=== PATIENT | male | born 1950 | race Caucasian/White ===

== ENCOUNTER → 2017-04-11 | Outpatient (CLI) | payer BC ==
[~2017-04-11] MED LIST: ASPI325T39 PO; ATOR80TA PO; CARV3.12 PO; CLAR500T34 PO; CLOP1TAB54 PO; ESCI10TA17 PO; LISI-789 PO; LPT40 PO; METF-384 PO; OMEP20CA9 PO; ZNT/150 PO
--- NOTE | 2017-04-11 14:23 | DIAGNOSTIC IMAGING REPORT ---
RIGHT ANKLE 3 VIEWS HISTORY: M25.471 Right ankle [id number] Right COMPARISON: None. FINDINGS: There is no fracture or dislocation. Mild soft tissue swelling. Small plantar heel spur. No radiopaque foreign bodies. IMPRESSION: No fractures. Electronically signed by: Giovani العراقي M.D. 04/11/2017 2:22 PM Dictated Date/Time: 04/11/2017 2:18 PM
== END | disposition home or self-care (01) ==
LOC: C.RAD1850 13:03
PROVIDERS: ATTEND Internal Medicine
DX: M25.471 Effusion, right ankle (principal)

== ENCOUNTER → 2017-04-13 | Outpatient (CLI) | payer BC | END | disposition home or self-care (01) | LOC: C.PATHSPEC 13:21 | PROVIDERS: ATTEND Dermatology | DX: L82.0 Inflamed seborrheic keratosis (principal); L57.0 Actinic keratosis; L81.4 Other melanin hyperpigmentation; L57.8 Other skin changes due to chronic exposure to nonionizing radiation ==

== ENCOUNTER 2017-07-15 22:08 | Inpatient (IN) | payer BC, OTHER ==
[~2017-07-15] VITALS: Ht 172.7 cm; Wt 84.5 kg
[~2017-07-15 22:08] MED LIST changes: +CLAR500T3 PO; -CLAR500T34 PO; -LPT40 PO; -OMEP20CA9 PO
[2017-07-15] MEDS ORDERED: SODIUM CHLORIDE 0.9% 1000ML 1,000 ML IV STA ×2 (22:24→22:56)
--- NOTE | 2017-07-15 22:38 | EMERGENCY ROOM VISIT NOTE ---
History First contact with patient: 22:16 Chief Complaint: SYNCOPE (NEAR SYNCOPE) Stated Complaint: DIZZY,LOW BP,PASSED OUT History of Present Illness The patient is a 67 year old male who presents to the Emergency Room with complaints of dizziness and syncope today. 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 He also mentions increased muscle cramps in his legs, he notes that he takes a statin. Today was the democrat, he states he was working all day and did not eat anything all day and drank very little fluids. Once the democrat started, he did eat a large amount of dinner, drank some water and also had three 14 ounce cans of beer. Around 7 PM he began to feel very dizzy and broke out in a sweat, he did have a syncopal episode where he fell forward from a sitting position and hit his head on the forehead. His son witnessed the fall, states that he was unconscious for approximately 10-20 seconds. He was not confused afterwards and did not have any seizure-like activity with this. The son reports that they attempted to sit him up from the ground and he passed out a second time. The son states he was very pale and clammy during this time. Patient and his family state that they waited for a couple of hours to see if his symptoms would improve, however he continued to feel dizzy and now with a mild headache. He denies any vision changes, neck pain, chest pain, shortness of breath, palpitations, nausea or vomiting, abdominal pain, back pain, diarrhea , dysuria or urinary frequency. Review of Systems A complete 10 point review of systems was reviewed with the patient with pertinent positives and negatives as per history of present illness. All else were negative. Past Medical/Surgical History Medical Problems: (1) AC MYOCARDIAL INFARCT,UNSPEC SITE,SUBSEQ EPISODE (2) ARF (acute renal failure) (3) HYPERLIPIDEMIA NEC/NOS (4) PERCUTANEOUS TRANSLUM CORON ANGIOPLASTY STATUS (5) REFLUX ESOPHAGITIS Family History Cancer Diabetes mellitus Heart disease Lung disease Social History Smoking Status: Never Smoker Alcohol Use: occasionally Marital Status: Housing Status: lives with family Occupation Status: employed Current/Historical Medications Scheduled Aspirin (Aspirin Ec), 162.5 MG PO DAILY Atorvastatin (Atorvastatin Calcium), 40 MG PO DAILY Carvedilol (Coreg), 3.125 MG PO BID Clopidogrel Bisulfate (Plavix), 75 MG PO DAILY Lisinopril (Zestril), 2.5 MG PO DAILY Metformin Hcl (Glucophage), 1,000 MG PO BID Omeprazole (Prilosec), 20 MG PO DAILY Ranitidine Hcl (Zantac), 150 MG PO Q12 Allergies NKDA Physical Exam Vital Signs Date Time Temp Pulse Resp B/P (MAP) Pulse Ox O2 Delivery O2 Flow Rate FiO2 07/15/17 23:27 66 18 92/51 97 Room Air 07/15/17 22:52 91 20 91/53 98 Room Air 82 82/55 72 72/54 07/15/17 22:41 Room Air 07/15/17 22:33 73 07/15/17 22:10 36.6 79 18 108/68 99 Room Air Physical Exam CONSTITUTIONAL: No acute distress. Dehydrated. Non-diaphoretic. Alert and oriented X 4 with normal affect. HEENT: Normocephalic, abrasion to the right forehead. Pupils equal, round and reactive to light, EOM limited, patient reports history of surgeries to his eyes which limits this at baseline, vision generally intact. No hemotympanum. Pharynx normal. Dry mucous membranes. NECK: Supple, full active range of motion without discomfort. No midline tenderness to palpation, no step-offs. RESPIRATORY: Clear to auscultation bilaterally with no wheezing, crackles, rhonchi or stridor. Equal expansion bilaterally. CARDIOVASCULAR: Regular rate and rhythm with no murmurs, rubs or gallops. Normal peripheral perfusion. No edema. CHEST WALL: No tenderness of the chest wall, no ecchymosis or abrasions, no crepitus. GASTROINTESTINAL: Soft, nontender, nondistended. Bowel sounds present in all quadrants. MUSCULOSKELETAL: Full range of motion of all joints without discomfort. INTEGUMENTARY: No rash or other significant dermatologic conditions noted. NEUROLOGIC: Cranial nerves II-XII grossly intact. No focal neurologic deficits noted. Negative pronator drift, negative facial droop. Normal strength, normal sensation, normal speech, normal coordination including negative Romberg and negative lvnyfd-[id number]-smndke testing, normal gait. Medical Decision & Procedures Laboratory Results 07/15/17 22:39 Red Blood Count 4.46, Mean Corpuscular Volume 91.9, Mean Corpuscular Hemoglobin 31.2, Mean Corpuscular Hemoglobin Concent 33.9, Mean Platelet Volume 10.2, Neutrophils (%) (Auto) 74.0, Lymphocytes (%) (Auto) 16.1, Monocytes (%) (Auto) 8.5, Eosinophils (%) (Auto) 0.7, Basophils (%) (Auto) 0.3, Neutrophils # (Auto) 11.76, Lymphocytes # (Auto) 2.55, Monocytes # (Auto) 1.35, Eosinophils # (Auto) 0.11, Basophils # (Auto) 0.04 07/15/17 22:39 Test 07/15/17 22:39 07/15/17 22:45 07/15/17 22:50 White Blood Count 15.87 K/uL (4.8-10.8) Red Blood Count 4.46 M/uL (4.7-6.1) Hemoglobin 13.9 g/dL (14.0-18.0) Hematocrit 41.0 % (42-52) Mean Corpuscular Volume 91.9 fL (80-100) Mean Corpuscular Hemoglobin 31.2 pg (25-34) Mean Corpuscular Hemoglobin Concent 33.9 g/dl (32-36) Platelet Count 266 K/uL (130-400) Mean Platelet Volume 10.2 fL (7.4-10.4) Neutrophils (%) (Auto) 74.0 % Lymphocytes (%) (Auto) 16.1 % Monocytes (%) (Auto) 8.5 % Eosinophils (%) (Auto) 0.7 % Basophils (%) (Auto) 0.3 % Neutrophils # (Auto) 11.76 K/uL (1.4-6.5) Lymphocytes # (Auto) 2.55 K/uL (1.2-3.4) Monocytes # (Auto) 1.35 K/uL (0.11-0.59) Eosinophils # (Auto) 0.11 K/uL (0-0.5) Basophils # (Auto) 0.04 K/uL (0-0.2) RDW Standard Deviation 44.1 fL (36.4-46.3) RDW Coefficient of Variation 13.2 % (11.5-14.5) Immature Granulocyte % (Auto) 0.4 % Immature Granulocyte # (Auto) 0.06 K/uL (0.00-0.02) Prothrombin Time 11.4 SECONDS (9.0-12.0) Prothromb Time International Ratio 1.1 (0.9-1.1) Activated Partial Thromboplast Time 25.7 SECONDS (21.0-31.0) Partial Thromboplastin Ratio 1.0 Anion Gap 11.0 mmol/L (3-11) Est Creatinine Clear Calc Drug Dose 31.6 ml/min Estimated GFR () 30.1 Estimated GFR (Non- 26.0 BUN/Creatinine Ratio 13.0 (10-20) Calcium Level 9.3 mg/dl (8.5-10.1) Total Bilirubin 0.7 mg/dl (0.2-1) Direct Bilirubin 0.2 mg/dl (0-0.2) Aspartate Amino Transf (AST/SGOT) 47 U/L (15-37) Alanine Aminotransferase (ALT/SGPT) 35 U/L (12-78) Alkaline Phosphatase 74 U/L (45-117) Total Creatine Kinase 1425 U/L (39-308) Troponin I < 0.015 ng/ml (0-0.045) Total Protein 7.8 gm/dl (6.4-8.2) Albumin 4.5 gm/dl (3.4-5.0) Thyroid Stimulating Hormone (TSH) 1.790 uIu/ml (0.300-4.500) Ethyl Alcohol mg/dL < 3.0 mg/dl (0-3) Bedside Glucose 120 mg/dl (70-99) Urine Color DK YELLOW Urine Appearance CLOUDY (CLEAR) Urine pH 5.0 (4.5-7.5) Urine Specific [place] 1.029 (1.000-1.030) Urine Protein 2+ (NEG) Urine Glucose (UA) NEG (NEG) Urine Ketones TRACE (NEG) Urine Occult Blood NEG (NEG) Urine Nitrite NEG (NEG) Urine Bilirubin 1+ (NEG) Urine Urobilinogen NEG (NEG) Urine Leukocyte Esterase SMALL (NEG) Urine WBC (Auto) 5-10 /hpf (0-5) Urine Epithelial Cells (Auto) 20-30 /lpf (0-5) Urine Crystals CALCIUM OXALATE (NONE Urine Pathogenic Casts /lpf (0) Medications Administered Medications (Trade) Dose Ordered Sig/Vera Route Start Time Stop Time Status Last Admin Dose Admin Sodium Chloride 1,000 ml @ 999 mls/hr Q1H1M STAT IV 07/15/17 22:24 07/15/17 23:24 DC 07/15/17 22:52 999 MLS/HR Sodium Chloride 1,000 ml @ 999 mls/hr Q1H1M STAT IV 07/15/17 22:56 07/15/17 23:56 DC 07/15/17 23:31 999 MLS/HR ECG Indication: syncope Rate (beats per minute): 71 Rhythm: normal sinus Findings: T-wave inversion (Inferior), no acute ischemic change, no ectopy Change: no significant change (05/05/2015, T-wave inversion in the inferior leads is not new) Medical Decision CC: Patient presenting with complaint of syncope, dizziness come head injury Interpretation of Labs: Leukocytosis, mild anemia, mild hyponatremia, acute kidney injury with elevated creatinine and BUN, CK is elevated, liver enzymes WNL, troponin is normal, TSH is normal, EtOH level negative, coagulation factors WNL. UA shows high SG, proteinuria, ketonuria, no hematuria, no infection. Differential Diagnosis: Includes, but not limited to syncope, orthostasis, vasovagal, dysrhythmia, acute MS, PE, traumatic brain injury including concussion, intracranial hemorrhage, contusion, abrasion, dehydration, electrolyte abnormality, HILDA, rhabdomyolysis, statin-induced myositis, among others. Medication Reconciliation: I attest that I have personally reviewed the patient' s current medication list. Vital signs review: I reviewed the patient's vital signs and interpret them as follows: T: Afebrile; BP: Hypotensive; HR: Within normal limits; RR: Within normal limits; Pulse Ox: Within normal limits on room air. Summary: Patient was evaluated at bedside, history of physical exam performed. Patient is alert and oriented 4, in no acute distress. He complains of feeling dizzy. Neurologic exam is within normal limits with no focal deficits. There is an abrasion/contusion to the right forehead that is slightly tender to palpation. Patient is on aspirin and Plavix, will perform head CT to evaluate for traumatic intracranial hemorrhage. EKG reviewed at bedside, normal sinus rhythm with no acute ischemic changes appreciated. Orders were placed at bedside for labs including troponin, CK, UA, IV fluids for hydration, chest x-ray. Positive orthostatic hypotension, 2L IV fluids ordered. Patient discussed with Dr. Rosas, who agrees with my assessment and plan. Forehead abrasion examined, superficial, no foreign material. Cleansed with chlorhexidine scrub and irrigated with normal saline. Dressing with bacitracin applied. Labs reviewed as above, concerning for HILDA with elevated creatinine, in setting of elevated CK, as well as leukocytosis of unknown etiology. Chest x-ray pending. CT of the head and C-spine reviewed with Dr. Rosas, no apparent acute abnormalities. Radiologist reads pending. I discussed the patient with Dr. Brayd, Hospitalist, who agrees to admit the patient. Patient reassessed multiple times throughout ED stay, neuro exam remains intact and unchanged. IV fluids infusing. Patient reports headache and dizziness are improving. I updated the patient and family on all results and plan for admission. They verbalized understanding. Head Trauma GCS Score: 15 Medication Reconcilliation Current Medication List: was personally reviewed by me Blood Pressure Screening Patient's blood pressure: Low blood pressure Impression Primary Impression: Syncope and collapse Additional Impressions: HILDA (acute kidney injury) Dehydration Elevated creatine kinase level Departure Information Dispostion Admitted as an inpatient Condition FAIR Referrals RV. Skinner MD (PCP) Patient Instructions My [facility] Problem Qualifiers
[2017-07-15] MEDS ORDERED: OMEP20CA9 PO (22:43)
[2017-07-15] MEDS ORDERED: LPT40 PO (22:43)
[2017-07-15 22:55] LABS: BASO % 0.3 %; BASO ABS # 0.04 K/uL (0-0.2); COMPLETE YES; EOS % 0.7 %; IG% 0.4 %; LYMPH % 16.1 %; LYMPH ABS # 2.55 K/uL (1.2-3.4); MEAN CELL VOLUME 91.9 fL (80-100); MEAN CORPUSCULAR HEMOGLOBIN 31.2 pg (25-34); MEAN CORPUSCULAR HGB CONC 33.9 g/dl (32-36); MEAN PLATELET VOLUME 10.2 fL (7.4-10.4); MONO % 8.5 %; PLATELET COUNT 266 K/uL (130-400); RED BLOOD COUNT 4.46 M/uL (4.7-6.1); WHITE BLOOD COUNT 15.87 K/uL (4.8-10.8)
[2017-07-15 23:06] LABS: URINE APPEARANCE CLOUDY (CLEAR); URINE COLOR DK YELLOW; URINE EPITHELIAL CELL AUTO 20-30 /lpf (0-5); URINE NITRITE NEG (NEG); URINE SPECIFIC GRAVITY 1.029 (1.000-1.030); UROBILINOGEN NEG (NEG)
[2017-07-15 23:06] LABS: INR 1.1 (0.9-1.1); PROTHROMBIN TIME (PATIENT) 11.4 SECONDS (9.0-12.0)
[2017-07-15 23:17] LABS: ALT/SGPT 35 U/L (12-78); BLOOD UREA NITROGEN 33 mg/dl (7-18); CALCIUM 9.3 mg/dl (8.5-10.1); CARBON DIOXIDE 22 mmol/L (21-32); CHLORIDE 99 mmol/L (98-107); GLUCOSE 101 mg/dl (70-99); POTASSIUM 4.6 mmol/L (3.5-5.1); SODIUM 132 mmol/L (136-145)
[2017-07-15 23:27] LABS: URINE BILIRUBIN 1+ (NEG)
[2017-07-15 23:28] LABS: MANUAL MICROSCOPIC REQUIRED? NO; REVIEW REQ? YES
[2017-07-15 23:31] LABS: ALKALINE PHOSPHATASE 74 U/L (45-117); AST/SGOT 47 U/L (15-37)
[2017-07-16] MEDS ORDERED: ONDANSETRON INJ 2 MG/ML 2 ML VIAL IV PRN (00:15)
[2017-07-16] MEDS ORDERED: POLYETHYLENE (MIRALAX) 17 GM PACK PO PRN (00:15)
[2017-07-16] MEDS ORDERED: ALUMINUM/MAGNESIUM/SIMETH (MAALOX MAX) 30 ML UDC PO PRN (00:15)
[2017-07-16] MEDS ORDERED: MAGNESIUM HYDROXIDE SUSP 30 ML UDC PO PRN (00:15)
[2017-07-16] MEDS ORDERED: ZOLPIDEM TARTRATE 5 MG TAB PO PRN (00:15)
[2017-07-16] MEDS ORDERED: ACETAMINOPHEN 325 MG TAB PO PRN (00:15)
[2017-07-16] MEDS: SODIUM CHLORIDE 0.9% 1000ML 1,000 ML IV SCH ×4 (01:17→21:02)
--- NOTE | 2017-07-16 01:52 | History and Physical ---
History & Physical Date & Time of Service: Jul 16, 2017 at 01:21 Chief Complaint: Dizzy,Low Bp,Passed Out Primary Care Physician: RV. Skinner MD History of Present Illness Source: patient 67 y/o M Hx CAD, HTN, HPL, DM, ocular muscle paralysis. Pt presents following 2 syncopal episodes. He was attending a birthday green party which he had arranged for his and after 2 beers he became light headed and fell forward sustaining minor trauma to the front of his head. He regained consciousness relatively quickly and was assisted to a standing position by his son when he again lost consciousness, this time being supported before he hit the floor. He was subsequently brought to hospital for evaluation. He denies CP, palpitations, SOB prior to syncope. He denies N/V/D, dysuria or recent fevers. Initial labs are notable for ARF and mild rhabdo. The pt states that he may not have had enough fluids throughout the day. 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 - does not smoke - drinks socially Smoking Status: Never Smoker Marital Status: Occupational Status: employed Immunizations History of Influenza Vaccine: Unknown History of Tetanus Vaccine?: Unknown History of Pneumococcal: Unknown History of Hepatitis B Vaccine: Unknown Multi-Drug Resistant Organisms History of MDRO: No Allergies Coded Allergies: No Known Allergies (Unverified , 07/15/17) Home Medications Scheduled Aspirin (Aspirin Ec), 162.5 MG PO DAILY Atorvastatin (Atorvastatin Calcium), 40 MG PO DAILY Carvedilol (Coreg), 3.125 MG PO BID Clopidogrel Bisulfate (Plavix), 75 MG PO DAILY Lisinopril (Zestril), 2.5 MG PO DAILY Metformin Hcl (Glucophage), 1,000 MG PO BID Omeprazole (Prilosec), 20 MG PO DAILY Ranitidine Hcl (Zantac), 150 MG PO Q12 Review of Systems Constitutional: No fever, No chills Eyes: + problem reported (Chronic impairment as above), No worsening of vision ENT: No hearing loss, No nasal symptoms Respiratory: No cough, No wheezing Cardiovascular: No chest pain Abdomen: No pain, No nausea, No vomiting Musculoskeletal: No joint pain Genitourinary - Male: No hematuria, No dysuria Neurologic: No memory loss, No paralysis, No weakness Psychiatric: No depression symptoms Endocrine: No fatigue Hematologic / Lymphatic: No abnormal bleeding/bruising Integumentary: No rash Allergic / Immunologic: No environmental allergies Physical Exam Vital Signs Date Time Temp Pulse Resp B/P (MAP) Pulse Ox O2 Delivery O2 Flow Rate FiO2 07/16/17 01:01 75 18 115/61 92 Room Air 07/15/17 23:27 66 18 92/51 97 Room Air 07/15/17 22:52 91 20 91/53 98 Room Air 82 82/55 72 72/54 07/15/17 22:41 Room Air 07/15/17 22:33 73 07/15/17 22:10 36.6 79 18 108/68 99 Room Air General Appearance: WD/WN, no apparent distress Head: normocephalic Eyes: + pertinent finding (Occular muscle paralysis - L ptosis) ENT: normal ENT inspection, pharynx normal Neck: supple, no JVD Respiratory/Chest: chest non-tender, lungs clear, normal breath sounds Cardiovascular: regular rate, rhythm, no edema, no gallop, no JVD, no murmur, normal peripheral pulses Abdomen/GI: normal bowel sounds, non tender, soft Back: normal inspection, no CVA tenderness Extremities/Musculoskelatal: normal inspection, no calf tenderness, normal capillary refill, no pedal edema, normal range of motion 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, no motor/sensory deficits, alert, oriented x 3 Skin: normal color, warm/dry, no rash Diagnostics Laboratory Results Results Past 24 Hours Test 07/15/17 22:39 07/15/17 22:45 07/15/17 22:50 Range/Units White Blood Count 15.87 4.8-10.8 K/uL Red Blood Count 4.46 4.7-6.1 M/uL Hemoglobin 13.9 14.0-18.0 g/dL Hematocrit 41.0 42-52 % Mean Corpuscular Volume 91.9 80-100 fL Mean Corpuscular Hemoglobin 31.2 25-34 pg Mean Corpuscular Hemoglobin Concent 33.9 32-36 g/dl Platelet Count 266 130-400 K/uL Mean Platelet Volume 10.2 7.4-10.4 fL Neutrophils (%) (Auto) 74.0 % Lymphocytes (%) (Auto) 16.1 % Monocytes (%) (Auto) 8.5 % Eosinophils (%) (Auto) 0.7 % Basophils (%) (Auto) 0.3 % Neutrophils # (Auto) 11.76 1.4-6.5 K/uL Lymphocytes # (Auto) 2.55 1.2-3.4 K/uL Monocytes # (Auto) 1.35 0.11-0.59 K/uL Eosinophils # (Auto) 0.11 0-0.5 K/uL Basophils # (Auto) 0.04 0-0.2 K/uL RDW Standard Deviation 44.1 36.4-46.3 fL RDW Coefficient of Variation 13.2 11.5-14.5 % Immature Granulocyte % (Auto) 0.4 % Immature Granulocyte # (Auto) 0.06 0.00-0.02 K/uL Prothrombin Time 11.4 9.0-12.0 SECONDS Prothromb Time International Ratio 1.1 0.9-1.1 Activated Partial Thromboplast Time 25.7 21.0-31.0 SECONDS Partial Thromboplastin Ratio 1.0 Sodium Level 132 136-145 mmol/L Potassium Level 4.6 3.5-5.1 mmol/L Chloride Level 99 98-107 mmol/L Carbon Dioxide Level 22 21-32 mmol/L Anion Gap 11.0 3-11 mmol/L Blood Urea Nitrogen 33 7-18 mg/dl Creatinine 2.50 0.60-1.40 mg/dl Est Creatinine Clear Calc Drug Dose 31.6 ml/min Estimated GFR () 30.1 Estimated GFR (Non- 26.0 BUN/Creatinine Ratio 13.0 10-20 Random Glucose 101 70-99 mg/dl Calcium Level 9.3 8.5-10.1 mg/dl Total Bilirubin 0.7 0.2-1 mg/dl Direct Bilirubin 0.2 0-0.2 mg/dl Aspartate Amino Transf (AST/SGOT) 47 15-37 U/L Alanine Aminotransferase (ALT/SGPT) 35 12-78 U/L Alkaline Phosphatase 74 45-117 U/L Total Creatine Kinase 1425 39-308 U/L Troponin I < 0.015 0-0.045 ng/ml Total Protein 7.8 6.4-8.2 gm/dl Albumin 4.5 3.4-5.0 gm/dl Thyroid Stimulating Hormone (TSH) 1.790 0.300-4.500 uIu/ml Ethyl Alcohol mg/dL < 3.0 0-3 mg/dl Bedside Glucose 120 70-99 mg/dl Urine Color DK YELLOW Urine Appearance CLOUDY CLEAR Urine pH 5.0 4.5-7.5 Urine Specific [place] 1.029 1.000-1.030 Urine Protein 2+ NEG Urine Glucose (UA) NEG NEG Urine Ketones TRACE NEG Urine Occult Blood NEG NEG Urine Nitrite NEG NEG Urine Bilirubin 1+ NEG Urine Urobilinogen NEG NEG Urine Leukocyte Esterase SMALL NEG Urine WBC (Auto) 5-10 0-5 /hpf Urine RBC (Auto) 0-4 0-4 /hpf Urine Hyaline Casts (Auto) >30 0-5 /lpf Urine Epithelial Cells (Auto) 20-30 0-5 /lpf Urine Bacteria (Auto) 1+ NEG Urine Crystals CALCIUM OXALATE NONE PRSENT Urine Pathogenic Casts 0 /lpf EKG Sinus - inf T wave inversions Impression Assessment and Plan 67 y/o M Hx CAD, HTN, HPL, DM, ocular muscle paralysis. Pt presents following 2 syncopal episodes. He was attending a birthday green party which he had arranged for his and after 2 beers he became light headed and fell forward sustaining minor trauma to the front of his head. He regained consciousness relatively quickly and was assisted to a standing position by his son when he again lost consciousness, this time being supported before he hit the floor. He was subsequently brought to hospital for evaluation. He denies CP, palpitations, SOB prior to syncope. He denies N/V/D, dysuria or recent fevers. Initial labs are notable for ARF and mild rhabdo. The pt states that he may not have had enough fluids throughout the day. 1) Syncope - possibly due to orthostasis considering rhabdo and ARF. Will monitor on telemetry for arrhythmias. IVF - orthostatics with BP - hold BP meds - syncope workup is likely to be low yield and would defer echo / carotid US to outpt setting unless there is recurrence after fluid resuscitation. 2) ARF - IVF - recheck AM - hold DAPHNE , ASA , Plavix 3) Rhabdo - mild - trend CK - aggressive fluid resuscitation 4) CAD - will trend troponin - restart Statin, ASA, Plavix AM if labs improved - T wave inversions are present - unclear if this is chronic - will repeat EKG AM 5) HTN - BP meds held due to likely orthostasis and ARF - can restart following AM reassessment if appropriate. 6) DM - placed on SS Full code - SCDs due to head trauma from fall Total time for this admit including review of labs, meds, imaging - discussion with pt and ER attending Level of Care Telemetry Resuscitation Status FULL RESUSCITATION VTE Prophylaxis VTE Risk Assessment Done? Y/N: Yes Risk Level: Low Given or contraindicated: SCD's
[2017-07-16 02:14] VITALS: BP 104/62; PULSE 67; TEMP 36.6; O2SAT 98; Ht 172.7 cm; Wt 84.5 kg
[2017-07-16] MEDS ORDERED: GLUCAGON FOR INJ 1 MG VIAL SQ PRN (02:30)
[2017-07-16] MEDS ORDERED: GLUCOSE 40% GEL 15 GM TUBE PO PRN (02:30)
[2017-07-16] MEDS ORDERED: GLUCOSE 10 TABS/TUBE PO PRN (02:30)
[2017-07-16] MEDS ORDERED: DEXTROSE 50% 50 ML SYR IV PRN (02:30)
[2017-07-16 04:00] VITALS: BP 90/56; PULSE 73; TEMP 36.9; O2SAT 97
--- NOTE | 2017-07-16 05:42 | DIAGNOSTIC IMAGING REPORT ---
CERVICAL SPINE W/O CLINICAL HISTORY: 67 years-old Male presenting with passed out, dizzy, fell forward, hit head, eval trauma. TECHNIQUE: Multidetector CT of the cervical spine was performed without the use of intravenous contrast. IV contrast: None. A dose lowering technique was used consistent with the principles of ALARA (as low as reasonably achievable). COMPARISON: None. CT DOSE (mGy.cm): The estimated cumulative dose is 1045.14 mGy.cm. FINDINGS: Photographic Editor topogram: Unremarkable. Slight straightening of normal cervical lordosis. Vertebral body heights and alignment maintained. Intervertebral disc height loss at C5-6, where there is the greatest degree of degenerative change. Osseous neural foraminal narrowing also noted at C5-6. Disc osteophyte complex noted at this level as well as the C4-5 level. No osseous spinal canal narrowing. Degenerative changes also noted at the atlantoaxial articulation. No acute fracture or subluxation. Regional soft tissues within normal limits. Lung apices clear. Limited intracranial evaluation normal. IMPRESSION: No acute osseous injury of the cervical spine. Degenerative changes most severe at C5-6. Electronically signed by: Lakhwinder Carter M.D. 07/16/2017 5:40 AM Dictated Date/Time: 07/16/2017 5:35 AM
--- NOTE | 2017-07-16 05:44 | DIAGNOSTIC IMAGING REPORT ---
HEAD WITHOUT CONTRAST (CT) CLINICAL HISTORY: 67 years-old Male presenting with , syncope, hit head, on aspirin and Plavix, eval trauma, CVA. TECHNIQUE: Multidetector CT imaging of the head was performed without the use of intravenous contrast. IV contrast: None. A dose lowering technique was used consistent with the principles of ALARA (as low as reasonably achievable). COMPARISON: 05/03/2013. CT DOSE (mGy.cm): The estimated cumulative dose is 1045.14 inclusive of the cervical spine.. FINDINGS: Fare Register Repairer topogram: Unremarkable. Ventricles and sulci normal in size. Periventricular and subcortical white matter hypoattenuation, nonspecific but likely indicative of chronic small vessel ischemic change. No mass effect or midline shift. No hemorrhage or acute territorial infarct. No extra-axial fluid collection. Paranasal sinuses and mastoid air cells clear. Calvarium intact. IMPRESSION: 1. No acute intracranial pathology. Electronically signed by: Lakhwinder Carter M.D. 07/16/2017 5:43 AM Dictated Date/Time: 07/16/2017 5:41 AM
--- NOTE | 2017-07-16 05:58 | DIAGNOSTIC IMAGING REPORT ---
CHEST ONE VIEW PORTABLE CLINICAL HISTORY: 67 years-old Male presenting with syncope, leukocytosis. TECHNIQUE: Portable upright AP view of the chest was obtained. COMPARISON: 09/30/2015. FINDINGS: Mild tortuosity of the descending thoracic aorta. Cardiac silhouette normal in size. Lungs and pleural spaces clear. Degenerative changes of the left glenohumeral joint. Upper abdomen normal. IMPRESSION: 1. No acute cardiopulmonary disease. Electronically signed by: Lakhwinder Carter M.D. 07/16/2017 5:56 AM Dictated Date/Time: 07/16/2017 5:56 AM
[2017-07-16 06:32] LABS: HEMATOCRIT 37.5 % (42-52); MEAN CELL VOLUME 90.1 fL (80-100); MEAN CORPUSCULAR HEMOGLOBIN 30.3 pg (25-34); MEAN CORPUSCULAR HGB CONC 33.6 g/dl (32-36); PLATELET COUNT 198 K/uL (130-400); RED BLOOD COUNT 4.16 M/uL (4.7-6.1); WHITE BLOOD COUNT 9.42 K/uL (4.8-10.8)
--- NOTE | 2017-07-16 06:42 | EMERGENCY ROOM VISIT NOTE ---
ED Visit Note First contact with patient: 23:13 I have personally evaluated and examined this patient. I agree with assessment and plan of Poornima Holly PA-C. 67 yr old with syncope who is orthostatic, in acute renal failure and clearly dehydrated.
[2017-07-16 07:20] LABS: BLOOD UREA NITROGEN 30 mg/dl (7-18); BUN/CREATININE RATIO 20.1 (10-20); CARBON DIOXIDE 21 mmol/L (21-32); CHLORIDE 107 mmol/L (98-107); GLUCOSE 97 mg/dl (70-99); MAGNESIUM 1.5 mg/dl (1.8-2.4); POTASSIUM 4.1 mmol/L (3.5-5.1); SODIUM 137 mmol/L (136-145)
[2017-07-16 08:00] VITALS: BP 109/73; PULSE 75; TEMP 36.2; O2SAT 98
[2017-07-16] MEDS: INSULIN ASPART 100 UNITS/ML 3 ML PEN SC SCH ×4 (08:09→20:39)
[2017-07-16] MEDS: CARVEDILOL 3.125 MG TAB PO SCH ×2 (08:15→20:38)
[2017-07-16] MEDS: RANITIDINE HCL 150 MG TAB PO SCH (08:15)
[2017-07-16] MEDS: MAGNESIUM SULFATE 1GM / D5W 1 GM in PREMIXED IN D5W 100 ML IV SCH ×2 (10:47→11:55)
[2017-07-16 12:00] VITALS: BP 105/70; PULSE 75; TEMP 37; O2SAT 98
[2017-07-16 19:31] LABS: URINE APPEARANCE CLEAR (CLEAR); URINE BILIRUBIN NEG (NEG); URINE COLOR YELLOW; URINE NITRITE NEG (NEG); URINE SPECIFIC GRAVITY 1.014 (1.000-1.030); UROBILINOGEN NEG (NEG)
[2017-07-16 19:32] LABS: MANUAL MICROSCOPIC REQUIRED? NO; REVIEW REQ? NO
[2017-07-16 19:48] VITALS: BP 111/75; PULSE 73; TEMP 36.9; O2SAT 98
--- NOTE | 2017-07-16 20:36 | Progress Note ---
Progress Note Date of Service Jul 16, 2017. 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 acute kidney injury - resolving. Possibly from rhabdo, possibly from dehydration, possibly from DAPHNE, etc Cont IVF. Hold DAPHNE. BMP am. 2. rhabdomyolysis - due to syncope with fall. Hydrate; CPK am. Hold statin. 3. hyponatremia - resolved. 4. abnormal u/a - no UTI symptoms. But, recheck u/a and urine cx to ensure no UTI. 5. T2DM - controlled; hold metformin. 6. syncope - due to volume depletion/orthostasis - resolved. Cont hydration. hold BP meds. PT consult in am to ensure safe for d/c home. Bandar Farr MD
[2017-07-17] VITALS (7 sets, daily range): BP systolic 105–116; BP diastolic 65–73; PULSE 58–68; TEMP 36.6–37.2; O2SAT 97–98
[2017-07-17] MEDS: SODIUM CHLORIDE 0.9% 1000ML 1,000 ML IV SCH (06:06)
[2017-07-17] MEDS: INSULIN ASPART 100 UNITS/ML 3 ML PEN SC SCH ×2 (06:30→11:00)
[2017-07-17 06:55] LABS: CREATININE 0.88 mg/dl (0.60-1.40); MAGNESIUM 1.9 mg/dl (1.8-2.4); POTASSIUM 4.8 mmol/L (3.5-5.1)
[2017-07-17] MEDS: RANITIDINE HCL 150 MG TAB PO SCH (09:05)
[2017-07-17] MEDS: CARVEDILOL 3.125 MG TAB PO SCH (09:05)
--- NOTE | 2017-07-17 11:15 | Discharge Instructions ---
Discharge Instructions Date of Service Jul 17, 2017. Admission Reason for Admission: Arf, Syncope And Collapse Discharge Discharge Diagnosis / Problem: fainting spell and transient renal failure appearing due to dehydration Discharge Goals Goal(s): Improve function, Diagnostic testing, Therapeutic intervention Activity Recommendations Activity Limitations: resume your previous activity . Instructions / Follow-Up Instructions / Follow-Up faint -the whole situation appears that you got dehydrated, which then led to the faint (probably from a brief drop in blood pressure from the dehydration combined with being on your regular medications) -your kidney numbers were elevated when you were admitted (creatinine was 2.5) but this has improved entirely (back to a totally normal 0.88 today) - this fits totally with being dry -it may take a few days for you to totally feel like yourself again, but given your improvement, as long as you stay hydrated and take it easy, it's going to be safer to have you rest and recover at home than in the hospital at this point -because the situation appears to have centered around being dehydrated, we have not changed your regular medications at this time; but will have labwork ( BMP) checked for Dr Handy for before your follow up appointment -make sure to stay well hydrated - drink at least 60 ounces of non-caffeine, non -alcohol fluids each day Current Hospital Diet Patient's current hospital diet: AHA Diet (Heart Healthy), Diabetes Type 2 Diet Discharge Diet Recommended Diet: AHA Diet (Heart Healthy), Diabetes Type 2 Diet Pending Studies Studies pending at discharge: no Medical Emergencies . Who to Call and When: Medical Emergencies: If at any time you feel your situation is an emergency, please call 911 immediately. . Non-Emergent Contact Non-Emergency issues call your: Primary Care Provider (we're working on a follow up for the end of this week, have the labwork checked before-hand) . . "Provider Documentation" section prepared by Александр Oglesby. . VTE Core Measure Inpt VTE Proph given/why not?: SCD's
--- NOTE | 2017-07-17 14:14 | Progress Note ---
Subjective Date of Service: Jul 17, 2017. Subjective Pt evaluation today including: conversation w/ patient, physical exam, chart review, lab review, review of inpatient medication list feeling better than at admit, but still a little lightheaded at times. notes that he has been able to get up and go to bathroom, etc without difficulty though. 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 walked >300ft in halls with pt. he was completely independent and conversational the whole time, steady on his feet, navigating with his IV pole, etc. no dizziness or unsteadiness Problem List Medical Problems: (1) HILDA (acute kidney injury) Status: Acute (2) Dehydration Status: Acute (3) Elevated creatine kinase level Status: Acute (4) Syncope and collapse Status: Acute Review of Systems all other ROS otherwise negative except for as above Objective Vital Signs Date Time Temp Pulse Resp B/P (MAP) Pulse Ox O2 Delivery O2 Flow Rate FiO2 07/17/17 11:38 37.2 61 18 98 Room Air 07/17/17 11:35 37.2 61 18 116/73 (87) 98 Room Air 07/17/17 09:00 68 110/70 (83) 07/17/17 08:00 98 Room Air 07/17/17 07:27 36.6 58 18 106/65 (79) 98 Room Air 07/17/17 04:00 36.8 65 18 114/71 (85) 98 Room Air 07/17/17 04:00 Room Air 07/17/17 00:01 Room Air 07/17/17 00:01 36.9 61 18 105/67 (80) 97 Room Air 07/16/17 20:00 Room Air 07/16/17 19:48 36.9 73 20 111/75 (87) 98 Room Air 07/16/17 16:00 Room Air Physical Exam General Appearance: no apparent distress Eyes: EOMI ENT: hearing grossly normal Neck: trachea midline Respiratory/Chest: no respiratory distress, no accessory muscle use Extremities: normal range of motion Neurologic/Psychiatric: production supv II-XII nml as tested, alert, normal mood/affect, + pertinent finding (see above in regards to gait and steadiness) Skin: normal color, warm/dry Laboratory Results Last 24 Hours Test 07/16/17 16:36 07/16/17 19:05 07/16/17 20:23 07/17/17 06:00 Bedside Glucose 86 mg/dl 107 mg/dl Urine Color YELLOW Urine Appearance CLEAR Urine pH 5.0 Urine Specific [place] 1.014 Urine Protein NEG Urine Glucose (UA) NEG Urine Ketones NEG Urine Occult Blood NEG Urine Nitrite NEG Urine Bilirubin NEG Urine Urobilinogen NEG Urine Leukocyte Esterase NEG Sodium Level 140 mmol/L Potassium Level 4.8 mmol/L Chloride Level 108 mmol/L Carbon Dioxide Level 24 mmol/L Anion Gap 8.0 mmol/L Blood Urea Nitrogen 14 mg/dl Creatinine 0.88 mg/dl Est Creatinine Clear Calc Drug Dose 89.9 ml/min Estimated GFR () 104.5 Estimated GFR (Non- 90.1 BUN/Creatinine Ratio 16.0 Random Glucose 117 mg/dl Calcium Level 9.0 mg/dl Magnesium Level 1.9 mg/dl Total Creatine Kinase 1063 U/L Test 07/17/17 07:42 07/17/17 11:20 Bedside Glucose 111 mg/dl 96 mg/dl Assessment and Plan syncope -predominantly due to dehydration. -stable for home. discussed rest/recovery/hydration acute kidney injury - resolved, due to dehydration. improved. PCP later this week, BMP then. rhabdo appears too mild to have played a role, ACEi possibly was a small contributor, but dehydration appearing to be main cause rhabdomyolysis - due to syncope with fall, working in the heat, dehydration. improved. appeared with hindsight to have been a mild part of his acute illness hyponatremia - resolved. abnormal u/a - no infectious s/s. culture 1,000 col/ml. likely abnormal due to dehydration T2DM - controlled; safe to resume metformin at d/c safe/stable for home PCP later this week BMP at PCP f/u with recovery, no changes to home meds at this time
--- NOTE | 2017-07-17 14:19 | Discharge Summary ---
Discharge Summary Date of Service Jul 17, 2017. Discharge Summary Admission Date: Jul 16, 2017 at 00:15 Discharge Date: Jul 17, 2017 Discharge Disposition: Home Principal Diagnosis: dehydration (syncope, ARF) Immunizations: Have You Had Influenza Vaccine: Unknown History of Tetanus Vaccine?: Unknown History of Pneumococcal: Unknown History of Hepatitis B Vaccine: Unknown Procedures: HEAD WITHOUT CONTRAST (CT) CLINICAL HISTORY: 67 years-old Male presenting with , syncope, hit head, on aspirin and Plavix, eval trauma, CVA. TECHNIQUE: Multidetector CT imaging of the head was performed without the use of intravenous contrast. IV contrast: None. A dose lowering technique was used consistent with the principles of ALARA (as low as reasonably achievable). COMPARISON: 05/03/2013. CT DOSE (mGy.cm): The estimated cumulative dose is 1045.14 inclusive of the cervical spine.. FINDINGS: [employer] topogram: Unremarkable. Ventricles and sulci normal in size. Periventricular and subcortical white matter hypoattenuation, nonspecific but likely indicative of chronic small vessel ischemic change. No mass effect or midline shift. No hemorrhage or acute territorial infarct. No extra-axial fluid collection. Paranasal sinuses and mastoid air cells clear. Calvarium intact. IMPRESSION: 1. No acute intracranial pathology. CERVICAL SPINE W/O CLINICAL HISTORY: 67 years-old Male presenting with passed out, dizzy, fell forward, hit head, eval trauma. TECHNIQUE: Multidetector CT of the cervical spine was performed without the use of intravenous contrast. IV contrast: None. A dose lowering technique was used consistent with the principles of ALARA (as low as reasonably achievable). COMPARISON: None. CT DOSE (mGy.cm): The estimated cumulative dose is 1045.14 mGy.cm. FINDINGS: [employer] Vice [employer] topogram: Unremarkable. Slight straightening of normal cervical lordosis. Vertebral body heights and alignment maintained. Intervertebral disc height loss at C5-6, where there is the greatest degree of degenerative change. Osseous neural foraminal narrowing also noted at C5-6. Disc osteophyte complex noted at this level as well as the C4-5 level. No osseous spinal canal narrowing. Degenerative changes also noted at the atlantoaxial articulation. No acute fracture or subluxation. Regional soft tissues within normal limits. Lung apices clear. Limited intracranial evaluation normal. IMPRESSION: No acute osseous injury of the cervical spine. Degenerative changes most severe at C5-6. [~ rep ct add3]] CHEST ONE VIEW PORTABLE CLINICAL HISTORY: 67 years-old Male presenting with syncope, leukocytosis. TECHNIQUE: Portable upright AP view of the chest was obtained. COMPARISON: 09/30/2015. FINDINGS: Mild tortuosity of the descending thoracic aorta. Cardiac silhouette normal in size. Lungs and pleural spaces clear. Degenerative changes of the left glenohumeral joint. Upper abdomen normal. IMPRESSION: 1. No acute cardiopulmonary disease. Electronically signed by: Lakhwinder Carter M.D. 07/16/2017 5:56 AM Last Resulted CBC 07/16/17 06:11 Last Resulted BMP 07/17/17 06:00 CPK peaked at 1470 creatinine was 2.5 at admission Medication Reconciliation Continued Medications: Aspirin (Aspirin Ec) 325 Mg Tab 162.5 MG PO DAILY Atorvastatin (Atorvastatin Calcium) 40 Mg Tab 40 MG PO DAILY Carvedilol (Coreg) 3.125 Mg Tab 3.125 MG PO BID, TAB Clopidogrel Bisulfate (Plavix) 75 Mg Tab 75 MG PO DAILY, TAB Lisinopril (Zestril) 2.5 Mg Tab 2.5 MG PO DAILY Metformin Hcl (Glucophage) 1,000 Mg Tab 1000 MG PO BID, TAB Omeprazole (Prilosec) 20 Mg Cap 20 MG PO DAILY, CAP Ranitidine Hcl (Zantac) 150 Mg Tab 150 MG PO Q12, TAB Discharge Exam Physical Exam: General Appearance: no apparent distress Hospital Course syncope -predominantly due to dehydration. -stable for home. discussed rest/recovery/hydration acute kidney injury - resolved, due to dehydration. improved. PCP later this week, BMP then. rhabdo appears too mild to have played a role, ACEi possibly was a small contributor, but dehydration appearing to be main cause rhabdomyolysis - due to syncope with fall, working in the heat, dehydration. improved. appeared with hindsight to have been a mild part of his acute illness hyponatremia - resolved. abnormal u/a - no infectious s/s. culture 1,000 col/ml. likely abnormal due to dehydration T2DM - controlled; safe to resume metformin at d/c safe/stable for home PCP later this week BMP at PCP f/u with recovery, no changes to home meds at this time Total Time Spent: Greater than 30 minutes This includes examination of the patient, discharge planning, medication reconciliation, and communication with other providers. Discharge Instructions Please refer to the electronic Patient Visit Report (Discharge Instructions) for additional information. Additional Copies To RV. Skinner MD
== END 2017-07-17 12:30 | disposition home or self-care (01) | DRG 683 ==
LOC: C.EDB 22:09 → C.MED 07-16 00:15 → ENRESERV 07-16 01:25 → C.MED 07-16 01:45
PROVIDERS: ADMIT Internal Medicine; ATTEND Internal Medicine
DX: N17.9 Acute kidney failure, unspecified (principal); E87.1 Hypo-osmolality and hyponatremia; M62.82 Rhabdomyolysis; R55 Syncope and collapse; I25.10 Atherosclerotic heart disease of native coronary artery without angina pectoris; I10 Essential (primary) hypertension; E11.9 Type 2 diabetes mellitus without complications; E78.5 Hyperlipidemia, unspecified; H49.9 Unspecified paralytic strabismus; I25.2 Old myocardial infarction; Z95.5 Presence of coronary angioplasty implant and graft; Z79.02 Long term (current) use of antithrombotics/antiplatelets; Z79.82 Long term (current) use of aspirin; Z79.84 Long term (current) use of oral hypoglycemic drugs; Z79.899 Other long term (current) drug therapy; Z83.3 Family history of diabetes mellitus; Z82.49 Family history of ischemic heart disease and other diseases of the circulatory system; Z82.3 Family history of stroke; Z82.5 Family history of asthma and other chronic lower respiratory diseases

== ENCOUNTER → 2017-07-20 | Outpatient (CLI) | payer BC ==
[~2017-07-20] MED LIST changes: -ATOR80TA PO; -CLAR500T3 PO; -ESCI10TA17 PO; +LPT40 PO; +OMEP20CA9 PO
[2017-07-20 12:24] LABS: ALT/SGPT 37 U/L (12-78); BLOOD UREA NITROGEN 16 mg/dl (7-18); BUN/CREATININE RATIO 17.1 (10-20); CALCIUM 9.7 mg/dl (8.5-10.1); CARBON DIOXIDE 25 mmol/L (21-32); CHLORIDE 103 mmol/L (98-107); CHOLESTEROL 103 mg/dl (0-200); CREATININE 0.94 mg/dl (0.60-1.40); GLUCOSE 92 mg/dl (70-99); POTASSIUM 4.9 mmol/L (3.5-5.1); SODIUM 134 mmol/L (136-145); TRIGLYCERIDES 138 mg/dl (0-150); VERY LOW DENSITY LIPOPROT CALC 28 mg/dl
[2017-07-20 12:25] LABS: ESTIMATED AVERAGE GLUCOSE 120 mg/dl; HA1C FLAG Normal (Normal)
[2017-07-20 12:34] LABS: ALB/GLOB RATIO 1.2 (0.9-2); ALKALINE PHOSPHATASE 79 U/L (45-117); AST/SGOT 23 U/L (15-37); CHOLESTEROL/HDL RATIO 2.3; HDL CHOLESTEROL 45 mg/dl; LDL CHOLESTEROL CALCULATED 30 mg/dl
== END | disposition home or self-care (01) ==
LOC: C.LAB1850 10:49
PROVIDERS: ATTEND Family Medicine
DX: N17.9 Acute kidney failure, unspecified (principal); R73.09 Other abnormal glucose; F43.21 Adjustment disorder with depressed mood; Z12.5 Encounter for screening for malignant neoplasm of prostate

== ENCOUNTER → 2017-11-14 | Outpatient (CLI) | payer OTHER ==
[2017-11-14 10:14] LABS: BASO % 0.6 %; BASO ABS # 0.04 K/uL (0-0.2); EOS % 3.7 %; EOS ABS # 0.26 K/uL (0-0.5); HEMOGLOBIN 15.2 g/dL (14.0-18.0); IG# 0.02 K/uL (0.00-0.02); LYMPH % 36.2 %; LYMPH ABS # 2.53 K/uL (1.2-3.4); MEAN CELL VOLUME 91.3 fL (80-100); MEAN CORPUSCULAR HEMOGLOBIN 31.5 pg (25-34); MEAN CORPUSCULAR HGB CONC 34.5 g/dl (32-36); MEAN PLATELET VOLUME 10.4 fL (7.4-10.4); MONO % 10.2 %; MONO ABS # 0.71 K/uL (0.11-0.59); NEUT ABS # 3.42 K/uL (1.4-6.5); PLATELET COUNT 273 K/uL (130-400); RED CELL DISTRIBUTION WIDTH SD 43.6 fL (36.4-46.3); WHITE BLOOD COUNT 6.98 K/uL (4.8-10.8)
[2017-11-14 10:38] LABS: ALBUMIN 4.5 gm/dl (3.4-5.0); ALT/SGPT 29 U/L (12-78); BLOOD UREA NITROGEN 17 mg/dl (7-18); CALCIUM 9.6 mg/dl (8.5-10.1); CARBON DIOXIDE 26 mmol/L (21-32); CREATININE 0.92 mg/dl (0.60-1.40); GLUCOSE 109 mg/dl (70-99); POTASSIUM 4.7 mmol/L (3.5-5.1); SODIUM 135 mmol/L (136-145)
[2017-11-14 10:41] LABS: ALKALINE PHOSPHATASE 78 U/L (45-117); AST/SGOT 15 U/L (15-37); TOTAL PROTEIN 8.2 gm/dl (6.4-8.2)
== END | disposition home or self-care (01) ==
LOC: C.LAB1850 09:23
PROVIDERS: ATTEND Internal Medicine
DX: E86.0 Dehydration (principal)

== ENCOUNTER → 2017-11-22 | Outpatient (CLI) | payer OTHER ==
--- NOTE | 2017-11-22 10:46 | DIAGNOSTIC IMAGING REPORT ---
BRAIN WITHOUT CONTRAST HISTORY: Mental status change I67.9 Cerebral microvascular [id number] History TECHNIQUE: Multiplanar multisequence MRI of the brain was performed without the use of contrast. COMPARISON STUDY: None. FINDINGS: There are no areas of restricted diffusion to suggest acute infarction. The midline structures are intact. The paranasal sinuses are clear. The mastoid air cells are clear. The ventricles and sulci are within normal limits for age. There is no mass, hematoma, midline shift. The major vascular flow-voids at the skull base are well maintained. Findings of moderate rather significant chronic small vessel change. Moderate cerebellar as well as cerebral atrophy. IMPRESSION: 1. Age-related atrophy and chronic small vessel change. 2. No acute intracranial abnormality. The above report was generated using voice recognition software. It may contain grammatical, syntax or spelling errors. Electronically signed by: Keith Emanuel M.D. 11/22/2017 10:45 AM Dictated Date/Time: 11/22/2017 10:37 AM
== END | disposition home or self-care (01) ==
LOC: C.MRI 09:23
PROVIDERS: ATTEND Internal Medicine
DX: F07.81 Postconcussional syndrome (principal); H53.2 Diplopia; I67.9 Cerebrovascular disease, unspecified; R42 Dizziness and giddiness; Z87.898 Personal history of other specified conditions; I67.82 Cerebral ischemia; G31.89 Other specified degenerative diseases of nervous system

== ENCOUNTER → 2017-12-07 | Outpatient (CLI) | payer OTHER ==
--- NOTE | 2017-12-10 10:49 | EEG Procedure Note ---
EEG Procedure Note Date of Service Dec 07, 2017. Start / End Times Start Time: 14:04pm End Time: 14:25pm Referring Physician VERO Powers History 67 year old male with syncope. EEG for further evaluation of possible seizure etiology. Home Medication List Scheduled Aspirin (Aspirin Ec), 162.5 MG PO DAILY Atorvastatin (Lipitor), 40 MG PO DAILY Carvedilol (Coreg), 3.125 MG PO BID Clopidogrel Bisulfate (Plavix), 75 MG PO DAILY Lisinopril (Zestril), 2.5 MG PO DAILY Metformin Hcl (Glucophage), 1,000 MG PO BID Omeprazole (Prilosec), 20 MG PO DAILY Ranitidine Hcl (Zantac), 150 MG PO Q12 Description This is a 21 electrode EEG with a single channel dedicated to limited EKG. The electrodes were placed in accordance with the International 10-20 system. At the start of the recording the patient was in an awake state. The background was well organized and composed of symmetric mixed alpha and beta frequencies. There was a well formed symmetric moderate amplitude posterior dominant rhythm of 10 Hz that was reactive to eye opening and closure. Hyperventilation was not done. Photic stimulation at various frequencies produced no abnormalities. Drowsiness was indicated by slowing of the background rhythm and loss of muscle artifact. There was no sleep transients. Interpretation This is a normal awake and drowsy EEG. There was no electrographic seizures or epileptiform discharges. Clinical Correlation A normal EEG does not rule out epilepsy if there is a strong clinical suspicion.
== END | disposition home or self-care (01) ==
LOC: C.NEUR 13:50
PROVIDERS: ATTEND Physician Assistant
DX: Z87.898 Personal history of other specified conditions (principal)

== ENCOUNTER 2021-10-31 08:33 | Observation (INO) ==
[2021-10-31] MEDS ORDERED: NITROGLYCERIN 2% OINTMENT 30GM TUBE EXT STA (08:51)
[2021-10-31] MEDS ORDERED: ASPIRIN CHEW 324 MG PO STA (08:51)
--- NOTE | 2021-10-31 08:57 | Emergency Department Note ---
History of Present Illness General Chief complaint: Chest Pain Stated complaint: CHEST PAIN, PAIN IN RT ARM Time Seen by Provider: 10/31/21 08:41 Source: patient History of Present Illness Provider complaint: Chest pain Onset (ago): day(s) Location: chest Radiation: neck (And jaw) and extremity (Right arm) Pain Consistency: + intermittent and + now resolved Maximum Pain Intensity: 2 Quality: + other ("Fiery hard") Exacerbated By: + other (Carrying firewood) Associated symptoms: + chest pain, + cough and + shortness of breath; no diaphoresis, no fever/chills, no malaise or no nausea/vomiting Treatments prior to arrival: none This is a 71-year-old male with a history of cardiac stent presenting with chest pain starting intermittently since yesterday. The patient stated that the pain was in the middle of his chest with radiation to his right arm and his neck and jaw. He describes it as a "fiery hard" pain. It is worse when he was trying to carry firewood into the house. It is associated with difficulty breathing. He denies any diaphoresis or nausea or vomiting. He does state that for the past 2-1/2 weeks he has had some cold symptoms including cough and sore throat. He has not had a fever or loss of taste or smell. He does complain of some mild diarrhea. He states he is fully vaccinated for COVID-19 and had a booster as carmelo can. He did have a [facility] but states that he does not heard any results back. He is currently not having any chest discomfort at this time. He states that he had a little bit this morning. He denies any abdominal pain, vomiting, leg swelling or pain or urinary symptoms. His is not sick with Covid symptoms. Home Medications Medication Instructions Recorded Confirmed Type sildenafil 50 mg tablet 50 mg PO UD PRN #18 tab 10/02/19 10/31/21 Rx carvedilol 3.125 mg tablet 3.125 mg PO BID #180 tab 04/28/21 10/31/21 Rx metformin 1,000 mg tablet 1,000 mg PO BID #180 tab 04/28/21 10/31/21 Rx aspirin 81 mg tablet,delayed 81 mg PO HS 10/31/21 10/31/21 History release atorvastatin 40 mg tablet 40 mg PO HS 10/31/21 10/31/21 History cholecalciferol (vitamin D3) 50 50 mcg PO HS 10/31/21 10/31/21 History mcg (2,000 unit) capsule clopidogrel 75 mg tablet (Plavix) 75 mg PO QAM 10/31/21 10/31/21 History lisinopril 5 mg tablet 5 mg PO BID 10/31/21 10/31/21 History mecobalamin (vitamin B12) 1,000 1,000 mcg PO HS 10/31/21 10/31/21 History mcg chewable tablet pantoprazole 20 mg tablet,delayed 20 mg PO HS 10/31/21 10/31/21 History release Allergies Allergy/AdvReac Type Severity Reaction Status Date / Time No Known Drug Allergies Allergy Unknown Verified 10/31/21 09:46 Past Med/Surg History Medical History Acute diverticulitis February 2019 Adjustment disorder with depressed mood Antiplatelet or antithrombotic long-term use CAD (coronary artery disease) Cerebral microvascular disease Depression Diverticulitis dx/treated x 3 weeks ago Diverticulosis of colon DM type 2 (diabetes mellitus, type 2) NIDDM Dysplastic nevus Elevated blood sugar GERD (gastroesophageal reflux disease) Hiatal hernia History of colon polyps History of diverticulitis History of heart artery stent Hyperlipidemia Hypertension Osteoarthritis Peyronie's disease Vestibular neuronitis Surgical History History of cardiac cath 6 YEARS AGO - CP - [facility] - 1 STENT PLACED - FOLLOWS W/ DR. BOOTHE History of colonoscopy History of herniorrhaphy UMBILCAL History of shoulder surgery LEFT History of tonsillectomy History of tooth extraction Strabismus REPAIR>RT/LEFT EYE Family History Family/Other Colorectal cancer Mother Colorectal cancer Diabetes Uncle Myocardial infarction Father Myocardial infarction Stroke Denies family history of Ovarian cancer Prostate cancer Breast cancer Social History Smoking Status: Never smoker Second Hand Exposure: No; Hx Alcohol Use: No Hx Substance Use: Yes Prescribed Medications: Marijuana Last Used Substance: Days (ago) Last Used Substance Other:: YESTERDAY Preferred Language: Estonian Communication Ability: Effective Replacer Required: No Beliefs That Will Affect Care: None marital status: Current Living Situation: Spouse current occupational status: employed current occupation: [employer] Feels Safe at Home: Yes Childhood Exposure to Second-Hand Smoke: Yes Dental Care, Regularly: Yes Physical Activity Frequency: 3-4 Times per Week Seatbelt Use: always Sunscreen Use: Yes Assistive Devices: Glasses Review of Systems See HPI for pertinent positives & negatives. and A total of 10 systems reviewed and were otherwise negative Physical Exam Vital Signs Vital Signs - 24 hr 10/31/21 08:37 10/31/21 08:51 10/31/21 10:00 Temperature 36.5 C Temperature Source Oral Pulse Rate 83 Pulse Rate [Right Finger] 82 Respiratory Rate 18 16 Respiratory Effort / Characteristics Non-Labored Respiratory Depth Normal Blood Pressure 120/83 Blood Pressure [Right Arm] 116/85 Blood Pressure Mean 95 Blood Pressure Mean [Right Arm] 95 Pulse Oximetry 100 98 99 Oxygen Delivery Method Room Air Room Air Sepsis Recent Fever Within 48 Hours No Sepsis New/Unexplained Change in Mental Status No Sepsis Action Taken by Nursing No Action Required 10/31/21 10:39 10/31/21 10:58 Temperature Temperature Source Pulse Rate Pulse Rate [Right Finger] 78 Respiratory Rate 20 Respiratory Effort / Characteristics Non-Labored Respiratory Depth Normal Blood Pressure Blood Pressure [Right Arm] 116/74 Blood Pressure Mean Blood Pressure Mean [Right Arm] 88 Pulse Oximetry 98 Oxygen Delivery Method Room Air Room Air Sepsis Recent Fever Within 48 Hours Sepsis New/Unexplained Change in Mental Status Sepsis Action Taken by Nursing Constitutional: Vital signs reviewed. Eyes: Pupils are equal round reactive to light. Conjunctiva are noninjected. ENT: Pharynx is clear without erythema or exudate. Mucous membranes are moist. Neck supple without meningeal signs. Respiratory: Clear to auscultation bilaterally. Breath sounds are equal bilaterally. Cardiovascular: Regular rate and rhythm. No rubs or gallops. GI: Soft, nondistended and nontender. Bowel sounds are present. Musculoskeletal: No peripheral edema. No lower extremity tenderness. Integumentary: No cyanosis. or jaundice. Neurological: The patient is awake and alert. No focal deficits. Psychiatric: Normal affect. Not anxious appearing. Course Administered Medications Metoprolol Tartrate (Metoprolol Tartrate 25 Mg Tab) 12.5 mg PO BID JENNY Stop: 11/30/21 11:46 Last Admin: 10/31/21 11:54 Dose: 12.5 mg Documented by: [id number] Discontinued Medications Aspirin (Aspirin Chew 324 Mg) 324 mg PO NOW STA Stop: 10/31/21 08:52 Last Admin: 10/31/21 09:02 Dose: 324 mg Documented by: [id number] Nitroglycerin (Nitroglycerin 2% Ointment 30gm Tube) 0.5 inch EXT NOW STA Stop: 10/31/21 08:52 Last Admin: 10/31/21 09:02 Dose: 0.5 inch Documented by: [id number] Medical Decision Making Differential Diagnosis Unstable angina, DE, pleurisy, pneumonia, COVID-19 Medical Records Attestation: I reviewed the patient's medical records. I did perform a limited focused review of portions of the patient's old chart on the electronic medical record. The patient has had no recent pertinent visits to this hospital. Home Medications Current Medication List: was personally reviewed by me Laboratory Data Attestation: I reviewed the patient's lab results. Result diagrams: 10/31/21 Unknown 10/31/21 Unknown Lab Results 10/31/21 10/31/21 Range/Units 10:09 10:09 Potassium 5.5 H (3.5-5.1) mmol/L Magnesium 1.5 L (1.8-2.4) mg/dl Imaging Data Radiologist's Impression: Chest X-Ray 10/31/21 08:51 SINGLE VIEW CHEST CLINICAL HISTORY: Atypical chest pain. FINDINGS: An AP, portable, upright chest radiograph is compared to study dated 01/02/2020. The heart is mildly enlarged. The lungs and pleural spaces are clear. No pneumothorax is seen. The skeletal structures are osteopenic. The bony thorax is grossly intact. IMPRESSION: Mild cardiomegaly with no active disease in the chest. ACT 112: Negative or not required by law. Electronically signed by: Pablo Myers M.D. 10/31/2021 9:19 AM ECG Data Attestation: I personally reviewed and interpreted this ECG as follows: Indication: + chest pain Rate (beats per minute): 81 Rhythm: + atrial flutter ECG ST segments: no ST elevation ECG Findings: + Other (A flutter with 4:1 AV conduction); no PVCs Comparison ECG Date: from (January 02, 2020) Change: the following changes noted (A flutter is new) Additional Comments: Repeat twelve-lead EKG per my interpretation demonstrates atrial flutter with a rate of 83 bpm. He has no acute ST elevations or depressions. No PVCs. No significant change from his earlier EKG. MDM Narrative I did evaluate the patient as noted above. He is presenting with exertional chest pain rating to his neck and arm. He has a prior history of cardiac stent and states that his symptoms were similar at that time. He is not having any chest pain currently but states that his right arm is still bothering him. IV access was established. I did treat him with nitroglycerin paste as well as aspirin [address] an order for continuous cardiac monitoring. The monitor showed atrial flutter with 4-1 conduction with a rate of 83 bpm. I did order and personally review the patient's 12-lead EKG as described above. He ding s new onset a flutter and has no acute ischemic changes. He has been having Covid symptoms for 2 and half weeks and had a Covid test but does not know the results. His is not sick. He was placed in respiratory isolation and a Covid test was obtained. While the patient was in the room he developed chest pain again and felt lightheaded. A repeat twelve-lead EKG was obtained which per my interpretation shows no acute ischemic changes. He continues to have flutter waves. The nurse thought she noted peaked T waves on the monitor. I did review his tracings with the monitor engineering document control clerk and did not see any evidence of peaked T waves. When I reassessed the patient he stated that his chest pain was gone and his arm is feeling much better. I did order and personally reviewed the images of the patient's chest x-ray as described above. He has cardiomegaly without any acute process. I did order and review the patient's blood work as noted in the electronic medical record. His white count is not elevated. Hemoglobin is 14.8. Platelet count is 312. Electrolytes are unremarkable other than a mild elevation of his potassium of 5.3. I did repeat this. Troponin is negative. I did reassess the patient. I did discuss the test results with the patient. He is no longer having any chest discomfort or arm pain other than pain in his hands from arthritis. I did recommend hospitalization for further care and evaluation. I did discuss the case with the hospitalist and caser up. After they saw him he developed some concerning T wave changes on the monitor again that were recorded. Cardiology was consulted for stat echocardiogram and he was started on heparin. Impression & Plan Chest pain, exertional, New onset atrial flutter, Acute hyperkalemia, Acute bronchitis Discharge Plan Visit Data Chief Complaint: Chest Pain Stated Complaint: CHEST PAIN, PAIN IN RT ARM ED Provider: Will Christiansen Discharge Problem: Chest pain, exertional, New onset atrial flutter, Acute hyperkalemia, Acute bronchitis Patient Disposition: Being Evaluated by Hospitalist Discharge Problem: Acute bronchitis Qualifiers: Bronchitis organism: unspecified organism Qualified Code(s): J20.9 - Acute bronchitis, unspecified
[2021-10-31 09:09] LABS: Basophils # (auto) 0.04 K/uL (0-0.2); Basophils % (auto) 0.4 %; Eosinophils # (auto) 0.26 K/uL (0-0.5); Eosinophils % (auto) 2.5 %; Hematocrit (blood only) 44.9 % (42-52); Hemoglobin 14.8 g/dL (14.0-18.0); Immature Granulocytes # (auto) 0.04 K/uL (0.00-0.02); Immature Granulocytes % (auto) 0.4 %; Lymphocytes # (auto) 2.26 K/uL (1.2-3.4); Lymphocytes % (auto) 21.6 %; Mean Corpuscular Hemoglobin 30.2 pg (25-34); Mean Corpuscular Volume 91.6 fL (80-100); Mean Platelet Volume 9.9 fL (7.4-10.4); Monocytes # (auto) 0.73 K/uL (0.11-0.59); Neutrophils # (auto) 7.11 K/uL (1.4-6.5); Neutrophils % (auto) 68.1 %; Platelet Count 312 K/uL (130-400); RDW Standard Deviation 43.6 fL (36.4-46.3); White Blood Count 10.44 K/uL (4.8-10.8)
--- NOTE | 2021-10-31 09:20 | XRay Report ---
SINGLE VIEW CHEST CLINICAL HISTORY: Atypical chest pain. FINDINGS: An AP, portable, upright chest radiograph is compared to study dated 01/02/2020. The heart is mildly enlarged. The lungs and pleural spaces are clear. No pneumothorax is seen. The skeletal struc tures are osteopenic. The bony thorax is grossly intact. IMPRESSION: Mild cardiomegaly with no active disease in the chest. ACT 112: Negative or not required by law. Electronically signed by: Pablo Myers M.D. 10/31/2021 9:19 AM
[2021-10-31 09:27] LABS: Alanine Aminotransferase 39 (12-78); Albumin Level 4.2 gm/dl (3.4-5.0); Aspartate Aminotransferase 17 U/L (15-37); BUN Creatinine Ratio 17.5 (10-20); Blood Urea Nitrogen 24 mg/dl (7-18); Calcium 9.4 mg/dl (8.5-10.1); Carbon Dioxide 27 mmol/L (21-32); Chloride 106 mmol/L (98-107); Est GFR (African American) 61.6 ml/min; Est GFR (Non-African American) 53.2 ml/min; Glucose 117 mg/dl (70-99); Lipase 282 U/L (73-393); Potassium 5.3 mmol/L (3.5-5.1); Sodium 137 mmol/L (136-145)
[2021-10-31 09:32] LABS: Albumin Globulin Ratio 1.1 (0.9-2); Alkaline Phosphatase 83 U/L (45-117); Globulin 3.8 gm/dl (2.5-4.0); Troponin I < 0.015 ng/ml (0-0.045)
[2021-10-31 09:36] LABS: Bilirubin,Total 0.4 mg/dl (0.2-1)
[2021-10-31 10:07] LABS: Influenza A virus by PCR Negative (Neg); Influenza B virus by PCR Negative (Neg); RSV by PCR Negative (Neg); SARS CoV2 RNA(COVID-19) InHosp NEGATIVE (Negative)
[2021-10-31] MEDS ORDERED: Heparin IV Adult Wt-Based Standard WITH Bolus Protocol IV STA (11:35)
[2021-10-31] MEDS ORDERED: HEPARIN SOD (PORCINE) 1000 UNIT/ML IV ONE (11:50)
[2021-10-31] MEDS: METOPROLOL TARTRATE 25 MG TAB PO SCH (11:54)
--- NOTE | 2021-10-31 11:57 | History & Physical Report ---
Date of Service October 31, 2021 Assessment & Plan (1) Chest pain, exertional: Plan: Attending: Dr. Oglesby Impression: 71-year-old male with chest pain since yesterday. Exacerbated with exertion. Patient with normal troponin x1. Persistent chest pain and spite of nitro paste. Previous history of cardiac catheterization with some nontreatable occlusion. Patient will be admitted to the PCU telemetry unit Start patient on weight-based heparin drip with bolus Metoprolol tartrate 12.5 mg p.o. twice daily with first dose now Aspirin [address] Carrasco from cardiology consulted. He is aware Urgent echocardiogram Repeat troponin now Continue clopidogrel (2) New onset atrial flutter: Plan: No prior history of atrial flutter or atrial fibrillation Get echocardiogram Start metoprolol Monitor on telemetry unit Cardiology consult requested. Dr. Carrasoc aware Rate controlled (3) Acute hyperkalemia: Plan: Presenting potassium level was 5.6. Repeat value 5.3. Repeat PRP at 3 PM today Check magnesium level Follow serial labs (4) CAD (coronary artery disease): Plan: History of PCI in the past with stent placement Several vessels were untreatable at that time in 2012 Echocardiogram Continue clopidogrel and aspirin Cardiology consult requested. (5) Iliac artery aneurysm, bilateral: Plan: Pedal pulses are palpable No edema Continue clopidogrel and aspirin (6) DM type 2 (diabetes mellitus, type 2): Plan: Most recent hemoglobin A1c is 08/06/2021 and was 6.1% Hold Metformin and start NovoLog sliding scale insulin Diabetic/heart healthy diet (7) History of coronary artery stent placement: Plan: See above with CAD. Continue clopidogrel and aspirin (8) Acid reflux disease: Plan: Continue home dose of pantoprazole 20 mg p.o. HS (9) Hyperlipidemia: Plan: Continue atorvastatin Outpatient management (10) DVT prophylaxis: Plan: Weight-based protocol for heparin drip Please refer to Dr. Oglesby's addendum for further recommendations. History of Present Illness Chief Complaint: Chest pain with new onset atrial flutter Primary Care Provider: Raymond Davalos MD Attending: Dr. Oglesby This is a 71-year-old male with a past medical history including CAD, previous stent placement, hyperkalemia, Peyronie's disease, diabetes mellitus type 2 controlled with Metformin, PTCA with chronic use of Plavix and aspirin, GERD, diverticulosis, hyperlipidemia, chronic kidney disease. Patient reports that he was cutting and carrying firewood yesterday when he started to experience chest pain with exertion. He went to his home to sit down and developed diaphoresis with pain that radiated into the right arm. The pain then seemed to settle down and he elected not to present to the emergency department since it was a holiday. He then was rolling up carpet and took it outside to dispose of it when he experienced chest pain again. This time he had what felt like acid reflux going from the stomach into the middle of the chest. He again experienced diaphoresis and clamminess. This morning he experienced recurrent chest pain with some shortness of breath. He presented to the emergency department was found to be in atrial flutter and with a potassium of 5.6. The patient was given nitro cream and chest pain seemed to improve. Repeat electrolytes revealed a potassium of 5.3. EKG was performed and showed atrial flutter with no evidence of ST changes. Repeat EKG with chest pain again revealed no acute changes to ST waves. Troponin was negative. Patient is hemodynamically stable. Currently his systolic blood pressure is 115. Patient is rate controlled with a current heart rate of 78 bpm. Patient has no nausea or vomiting. No back pain. Some shortness of breath without hypoxia. Patient's SaO2 is 99 to 100% on room air. Patient has no other acute complaints. Patient is fully vaccinated for Covid. He received his booster last month with [employer]. Patient is a lifelong non-smoker No other acute complaints. Allergies Allergy/AdvReac Type Severity Reaction Status Date / Time No Known Drug Allergies Allergy Unknown Verified 10/31/21 09:46 Home Medications Medication Instructions Recorded Confirmed Type sildenafil 50 mg tablet 50 mg PO UD PRN #18 tab 10/02/19 10/31/21 Rx carvedilol 3.125 mg tablet 3.125 mg PO BID #180 tab 04/28/21 10/31/21 Rx metformin 1,000 mg tablet 1,000 mg PO BID #180 tab 04/28/21 10/31/21 Rx aspirin 81 mg tablet,delayed 81 mg PO HS 10/31/21 10/31/21 History release atorvastatin 40 mg tablet 40 mg PO HS 10/31/21 10/31/21 History cholecalciferol (vitamin D3) 50 50 mcg PO HS 10/31/21 10/31/21 History mcg (2,000 unit) capsule clopidogrel 75 mg tablet (Plavix) 75 mg PO QAM 10/31/21 10/31/21 History lisinopril 5 mg tablet 5 mg PO BID 10/31/21 10/31/21 History mecobalamin (vitamin B12) 1,000 1,000 mcg PO HS 10/31/21 10/31/21 History mcg chewable tablet pantoprazole 20 mg tablet,delayed 20 mg PO HS 10/31/21 10/31/21 History release Past Med/Surg History Medical History Acute diverticulitis February 2019 Adjustment disorder with depressed mood Antiplatelet or antithrombotic long-term use CAD (coronary artery disease) Cerebral microvascular disease Depression Diverticulitis dx/treated x 3 weeks ago Diverticulosis of colon DM type 2 (diabetes mellitus, type 2) NIDDM Dysplastic nevus Elevated blood sugar GERD (gastroesophageal reflux disease) Hiatal hernia History of colon polyps History of diverticulitis History of heart artery stent Hyperlipidemia Hypertension Osteoarthritis Peyronie's disease Vestibular neuronitis Surgical History History of cardiac cath 6 YEARS AGO - CP - [facility] - 1 STENT PLACED - FOLLOWS W/ DR. BOOTHE History of colonoscopy History of herniorrhaphy UMBILCAL History of shoulder surgery LEFT History of tonsillectomy History of tooth extraction Strabismus REPAIR>RT/LEFT EYE Family History Family/Other Colorectal cancer Mother Colorectal cancer Diabetes Uncle Myocardial infarction Father Myocardial infarction Stroke Denies family history of Ovarian cancer Prostate cancer Breast cancer Social History Smoking Status: Never smoker Second Hand Exposure: No; Hx Alcohol Use: Yes Alcohol type: beer Hx Substance Use: Yes Prescribed Medications: Marijuana Last Used Substance: Days (ago) Last Used Substance Other:: YESTERDAY Preferred Language: Samoan Communication Ability: Effective Administrative Assistant Office Manager Required: No Beliefs That Will Affect Care: None marital status: Current Living Situation: Spouse current occupational status: employed current occupation: [employer] Feels Safe at Home: Yes Childhood Exposure to Second-Hand Smoke: Yes Dental Care, Regularly: Yes Physical Activity Frequency: 3-4 Times per Week Seatbelt Use: always Sunscreen Use: Yes Assistive Devices: Denture - Upper and Glasses Review of Systems Review of Systems: All systems reviewed & are unremarkable except as noted in Subjective Physical Exam Physical Exam: GENERAL : Moderate distress with chest pain. Clammy skin but no diaphoresis. EYES: No icterus, gaze conjugate NOSE: No evidence of epistaxis MOUTH: No lesions or candidiasis NECK: Supple LUNGS: CTA B/L, no wheezes, rales or rhonchi HEART: Irregular, rate controlled at 78 bpm ABDOMEN: Soft, NT, ND, BS Present EXTREMITIES: No LE edema, pedal pulses intact and equal bilaterally NEURO: A&OX3 Results & Data Results & Data ([facility]) Vital Signs (Past 12 Hours) Vital Signs Temp Pulse Pulse Resp BP BP Pulse Ox 10/31/21 10:39 78 20 116/74 98 10/31/21 10:00 82 16 116/85 99 10/31/21 08:51 98 10/31/21 08:37 36.5 C 83 18 120/83 100 Laboratory Results 10/31/21 Unknown 10/31/21 Unknown 10/31/21 Unknown Troponin I < 0.015 Diagnostic Findings Chest X-Ray 10/31/21 08:51 SINGLE VIEW CHEST CLINICAL HISTORY: Atypical chest pain. FINDINGS: An AP, portable, upright chest radiograph is compared to study dated 01/02/2020. The heart is mildly enlarged. The lungs and pleural spaces are clear. No pneumothorax is seen. The skeletal structures are osteopenic. The bony thorax is grossly intact. IMPRESSION: Mild cardiomegaly with no active disease in the chest. ACT 112: Negative or not required by law. Electronically signed by: Pablo Myers M.D. 10/31/2021 9:19 AM Code Status & VTE Plan Code Status Level I full resuscitation VTE Prophylaxis Plan VTE Prophylaxis will be ordered: Yes Supervising Physician Co-Signing Physician Notes I personally examined the patient and verified all marcelino points of history and exam, discussed case, and agree with decision making with Rain ARIAS Burning type chest pain with exertion off and on the last few days, now today at rest. Also has jaw pain, sweats, right arm pain. Although symptoms are somewhat atypical, he remembers very clearly that this is almost exactly how he felt whenever he was stented about 10 years ago. Notes that for a while after stenting he was really doing well with lifestyle, but the last few years he has fallen off. No symptoms as we speak Vitals noted, in general he is awake and alert pleasant no distress. HEENT normocephalic atraumatic mucous membranes moist. Breathing unlabored no accessory muscle use good effort. Skin shows no rashes no pallor or icterus. Neuro without focal deficits. EKG without ST elevations, troponins are negative, echo reassuring. Chest painwhile at "face value" his symptoms seem a little atypical for angina, the fact that they are exertional, the fact that they are coming on with a bit of a crescendo pattern, and the fact that most notably he remembers this being almost exactly like his prior anginahighly concerning for progressive/unstable angina pattern. Further, when his RCA was stented in 2012 he had several stenoses that, given the time between then and now, easily could have progressed. Will await cardiology input, but preemptively will make him n.p.o. after midnight assuming possible left heart cath. otherwise as above PG Care Time/CCT Total # of Minutes Spent Total Time Spent with Patient: Total time spent is greater than 50% in coordination of care (as documented) at patient's floor/unit and/or counseling patient: 60 minutes including discussion with echocardiography and with network security analyst Coding Level of Care Code INT OBSERVATION CARE 70M LVL 3 Diagnoses Chest pain, exertional R07.9 New onset atrial flutter I48.92 Acute hyperkalemia E87.5 CAD (coronary artery disease) I25.10 Iliac artery aneurysm, bilateral I72.3 DM type 2 (diabetes mellitus, type 2) E11.9 History of coronary artery stent placement Z95.5 Acid reflux disease K21.9 Hyperlipidemia E78.5 DVT prophylaxis Z29.9 Time Spent (min) 60
[2021-10-31 12:43] LABS: Partial Thromboplastin Time 26.5 Seconds (21.0-31.0)
[2021-10-31] MEDS: MAGNESIUM SULFATE / D5W 1 GM/100 ML BAG IV SCH ×2 (13:10→15:15)
[2021-10-31] MEDS: MAGNESIUM SULFATE / D5W 1 GM/100 ML BAG IV STA ×2 (13:12→15:04)
[2021-10-31] MEDS: HEPARIN SODIUM/DEXTROSE 25,000 UNITS/500 ML BAG IV SCH (13:13)
--- NOTE | 2021-10-31 14:27 | XCELERA ---
[id number]
[2021-10-31] MEDS ORDERED: POLYETHYLENE (MIRALAX) 17 GM PACK PO PRN (16:01)
[2021-10-31] MEDS ORDERED: NITROGLYCERIN SL 0.4 MG/TAB TAB SL PRN (16:01)
[2021-10-31] MEDS ORDERED: GLUCAGON FOR INJ 1 MG VIAL SQ PRN (16:01)
[2021-10-31] MEDS ORDERED: CARBOHYDRATES FOR HYPOGLYCEMIA PO PRN (16:01)
[2021-10-31] MEDS ORDERED: ACETAMINOPHEN 325 MG TAB PO PRN (16:01)
[2021-10-31] MEDS ORDERED: ALUMINUM/MAGNESIUM SUSP 30 ML UDC PO PRN (16:01)
[2021-10-31] MEDS ORDERED: GLUCOSE 10 TABS/TUBE PO PRN (16:01)
[2021-10-31] MEDS ORDERED: MAGNESIUM HYDROXIDE SUSP 30 ML UDC PO PRN (16:01)
[2021-10-31] MEDS ORDERED: DEXTROSE 50% 50 ML SYRINGE IV PRN (16:01)
[2021-10-31] MEDS ORDERED: GLUCOSE 40% GEL 15 GM TUBE PO PRN (16:01)
[2021-10-31] MEDS ORDERED: CHOLECALCIFEROL 1,000 UNITS 25 MCG TAB PO SCH (16:30)
[2021-10-31 16:38] LABS: BUN Creatinine Ratio 18.1 (10-20); Blood Urea Nitrogen 23 mg/dl (7-18); Calcium 9.1 mg/dl (8.5-10.1); Carbon Dioxide 26 mmol/L (21-32); Chloride 104 mmol/L (98-107); Creatinine Clr Calc Pharmacy 59.8 ml/min; Est GFR (African American) 68.3 ml/min; Est GFR (Non-African American) 58.9 ml/min; Glucose 106 mg/dl (70-99); Potassium 4.8 mmol/L (3.5-5.1); Sodium 137 mmol/L (136-145)
[2021-10-31 16:42] LABS: Troponin I < 0.015 ng/ml (0-0.045)
[2021-10-31] MEDS ORDERED: INFLUENZA VACCINE HIGH DOSE PF 65+ 0.7 ML SYR IM ONE (16:45)
[2021-10-31] MEDS: INSULIN ASPART PER UNIT SC SCH (16:49)
[2021-10-31] MEDS: CLOPIDOGREL BISULFATE 75 MG TAB PO SCH (17:38)
[2021-10-31] MEDS: lisinopril 5 MG TAB PO SCH ×2 (17:38→21:34)
[2021-10-31] MEDS ORDERED: carvediloL 3.125 MG TAB PO SCH (21:00)
[2021-10-31] MEDS ORDERED: ASPIRIN 81 MG ECTAB PO SCH (21:00)
[2021-10-31] MEDS ORDERED: ATORVASTATIN 40 MG TAB PO SCH (21:00)
[2021-10-31] MEDS ORDERED: PANTOprazole 40 MG TAB PO SCH (21:00)
[2021-10-31] MEDS ORDERED: CYANOCOBALAMIN 500 MCG TABLET (VITAMIN B-12) PO SCH (21:00)
[2021-10-31 22:40] LABS: Partial Thromboplastin Ratio 2.3
[2021-10-31 22:46] LABS: Partial Thromboplastin Time 59.7 Seconds (21.0-31.0)
[2021-11-01] MEDS: INSULIN ASPART PER UNIT SC SCH ×3 (01:46→14:10)
[2021-11-01] MEDS: METOPROLOL TARTRATE 25 MG TAB PO SCH ×2 (02:11→08:46)
[2021-11-01 06:09] LABS: Partial Thromboplastin Ratio 2.5
[2021-11-01 06:15] LABS: Partial Thromboplastin Time 66.1 Seconds (21.0-31.0)
[2021-11-01] MEDS: HEPARIN SODIUM/DEXTROSE 25,000 UNITS/500 ML BAG IV SCH (07:20)
[2021-11-01 07:30] LABS: Estimated Average Glucose 126 mg/dl
--- NOTE | 2021-11-01 07:44 | Electrocardiogram Report ---
Test Reason : Blood Pressure : / mmHG Vent. Rate : 081 BPM Atrial Rate : 324 BPM P-R Int : 000 ms QRS Dur : 108 ms QT Int : 358 ms P-R-T Axes : 000 091 046 degrees QTc Int : 415 ms Poor data quality, interpretation may be adversely affected Atrial flutter with 4:1 A-V conduction Rightward axis Abnormal ECG When compared with ECG of 02-JAN-2020 16:53, Atrial flutter has replaced Sinus rhythm ST elevation now present in Anterior leads Confirmed by Dexter Carrasco ([id number]) on 11/01/2021 7:44:18 AM Referred By: Confirmed By:Dexter Carrasco
--- NOTE | 2021-11-01 07:45 | Electrocardiogram Report ---
Test Reason : Blood Pressure : / mmHG Vent. Rate : 083 BPM Atrial Rate : 332 BPM P-R Int : 000 ms QRS Dur : 086 ms QT Int : 164 ms P-R-T Axes : 086 086 000 degrees QTc Int : 192 ms Atrial flutter with 4:1 A-V conduction Nonspecific T wave abnormality Abnormal ECG When compared with ECG of 31-OCT-2021 08:46, (unconfirmed) ST no longer elevated in Anterior leads Nonspecific T wave abnormality now evident in Anterolateral leads Confirmed by Dexter Carrasco ([id number]) on 11/01/2021 7:44:47 AM Referred By: REFERRED SELF Confirmed By:Dexter Carrasco
--- NOTE | 2021-11-01 07:48 | Electrocardiogram Report ---
Test Reason : Blood Pressure : / mmHG Vent. Rate : 077 BPM Atrial Rate : 375 BPM P-R Int : 000 ms QRS Dur : 080 ms QT Int : 366 ms P-R-T Axes : 000 093 000 degrees QTc Int : 414 ms Poor data quality, interpretation may be adversely affected Atrial flutter with variable A-V block Rightward axis Abnormal ECG When compared with ECG of 31-OCT-2021 09:07, (unconfirmed) Nonspecific T wave abnormality no longer evident in Anterolateral leads Confirmed by Dexter Carrasco ([id number]) on 11/01/2021 7:47:55 AM Referred By: REFERRED SELF Confirmed By:Dexter Carrasco
[2021-11-01] MEDS: CLOPIDOGREL BISULFATE 75 MG TAB PO SCH (08:47)
[2021-11-01] MEDS: lisinopril 5 MG TAB PO SCH (08:47)
--- NOTE | 2021-11-01 11:27 | Cardiology Consultation ---
Date of Consultation November 01, 2021 Assessment & Plan (1) Chest pain, exertional: -his history is concerning for angina pectoris. -agree with intravenous heparin. -will proceed with an urgent cardiac catheterization today. (2) CAD (coronary artery disease): -s/p IMI with distal RCA TIM in October 2012. -20-30% LM, 50-60% ostial LCx, and 40% LAD also noted at that time. -cardiac catheterization as above. (3) Aortic aneurysm: -measured 3.1 x 3.0 cm in June 2021. -also has bilateral iliac aneurysms. -stable chronic focal distal aortic dissection-June 2021. -follows with Dr. [place]. (4) New onset atrial flutter: -new diagnosis. -agree with intravenous heparin for now. -ventricular response adequately controlled on metoprolol tartrate. -will need long-term anticoagulation with a novel agent. History of Present Illness Attending Physician: Rafi Devine MD History of Present Illness Mr. Farah is a 71-year-old male admitted yesterday with a chest pain syndrome and new onset atrial flutter. This consultation was ordered to assist in his management. Of note, patient typically follows with Dr. Arias in the outpatient setting. The patient was in his usual state of health until the supervisor general hours on . The patient carried a throw rug outside of his home. While walking up the stairs coming inside, the patient had the onset of a burning sensation in the right shoulder which spread across the right chest to the sternal region. He had concurrent diaphoresis but no shortness of breath, nausea, or vomiting. The patient sat down in a chair and his symptoms resolved after approximately 5 minutes. He had a recurrent episode late in the day on [place] while attending to his wood stove. His symptoms were exactly as described above and resolved within 5 minutes of rest. The patient had a 3rd episode yesterday morning while at home and he decided to proceed to the emergency room for further care. The patient does carry history of coronary artery disease having suffered an inferior myocardial infarction in October 2012. He had a TIM placed in the distal RCA at that time. Other disease included a 20-30% LM, 50-60% ostial LCx, and a 40% LAD. The patient's presenting EKG noted atrial flutter with a variable ventricular response but well controlled in the 70 beats per minute range. There was a rightward axis. The patient does note an occasional palpitation. We have discussed need for long-term anticoagulation. The patient has received both of his COVID vaccinations along with a booster. We have discussed the need for a cardiac catheterization. Currently, patient is resting comfortably in bed and without complaints. Past medical and surgical history 1. Coronary artery disease-see above 2. Distal RCA TIM-October 2012 3. Hypertension 4. Moderate LVH 5. Hypercholesterolemia 6. Peripheral vascular disease 7. AAA-3.1 x June 2021 8. Bilateral iliac aneurysms 9. Chronic focal distal aortic dissection 10. Diabetes mellitus 11. GERD 12. Hiatal hernia 13. Diverticulosis 14. Colonic polyps 15. Depression 16. Inguinal hernia repair 17. Tonsillectomy 18. History of shoulder surgery Social history and lives with his No tobacco alcohol Family history No early coronary artery disease Review of systems A 10 review systems was undertaken and negative except that described above. Allergies Allergy/AdvReac Type Severity Reaction Status Date / Time No Known Drug Allergies Allergy Unknown Verified 10/31/21 09:46 Home Medications Medication Instructions Recorded Confirmed Type sildenafil 50 mg tablet 50 mg PO UD PRN #18 tab 10/02/19 10/31/21 Rx carvedilol 3.125 mg tablet 3.125 mg PO BID #180 tab 04/28/21 10/31/21 Rx metformin 1,000 mg tablet 1,000 mg PO BID #180 tab 04/28/21 10/31/21 Rx aspirin 81 mg tablet,delayed 81 mg PO HS 10/31/21 10/31/21 History release atorvastatin 40 mg tablet 40 mg PO HS 10/31/21 10/31/21 History cholecalciferol (vitamin D3) 50 50 mcg PO HS 10/31/21 10/31/21 History mcg (2,000 unit) capsule clopidogrel 75 mg tablet (Plavix) 75 mg PO QAM 10/31/21 10/31/21 History lisinopril 5 mg tablet 5 mg PO BID 10/31/21 10/31/21 History mecobalamin (vitamin B12) 1,000 1,000 mcg PO HS 10/31/21 10/31/21 History mcg chewable tablet pantoprazole 20 mg tablet,delayed 20 mg PO HS 10/31/21 10/31/21 History release Patient History Medical History Acute diverticulitis February 2019 Adjustment disorder with depressed mood Antiplatelet or antithrombotic long-term use CAD (coronary artery disease) Cerebral microvascular disease Depression Diverticulitis dx/treated x 3 weeks ago Diverticulosis of colon DM type 2 (diabetes mellitus, type 2) NIDDM Dysplastic nevus Elevated blood sugar GERD (gastroesophageal reflux disease) Hiatal hernia History of colon polyps History of diverticulitis History of heart artery stent Hyperlipidemia Hypertension Osteoarthritis Peyronie's disease Vestibular neuronitis Surgical History History of cardiac cath 6 YEARS AGO - - [facility] - 1 STENT PLACED - FOLLOWS W/ DR. ARIAS History of colonoscopy History of herniorrhaphy UMBILCAL History of shoulder surgery LEFT History of tonsillectomy History of tooth extraction Strabismus REPAIR>RT/LEFT EYE Family History Family/Other Colorectal cancer Mother Colorectal cancer Diabetes Uncle Myocardial infarction Father Myocardial infarction Stroke Denies family history of Ovarian cancer Prostate cancer Breast cancer Social History Smoking Status: Never smoker Second Hand Exposure: No; Hx Alcohol Use: Yes Alcohol type: beer Hx Substance Use: No Preferred Language: Tongan Communication Ability: Effective Delivery Assistant Required: No Beliefs That Will Affect Care: None marital status: Current Living Situation: Spouse current occupational status: employed current occupation: [employer] Feels Safe at Home: Yes Childhood Exposure to Second-Hand Smoke: Yes Dental Care, Regularly: Yes Physical Activity Frequency: 3-4 Times per Week Seatbelt Use: always Sunscreen Use: Yes Assistive Devices: Glasses Physical Exam Physical Exam: In general is well-developed well-nourished white male no acute distress. HEENT exam is negative. Neck is supple with full carotid upstrokes. There are no carotid bruits. Jugular venous pressure is flat at 90. There is no thyromegaly. Cardiovascular exam reveals a regular rhythm with a normal S1 and S2. Heart sounds are distant. No obvious murmurs. Lungs are clear without rales, rhonchi, or wheezes. Abdomen is soft and nontender without bruits. Extremities reveal intact radial artery pulses bilaterally. There is no peripheral edema. Results & Data ([facility]) Vital Signs (Past 12 Hours) Vital Signs Temp Pulse Resp BP BP Pulse Ox 11/01/21 11:00 36.8 C 83 18 130/88 98 11/01/21 07:47 36.6 C 82 18 116/80 98 11/01/21 04:16 36.7 C 81 18 102/68 96 10/31/21 23:33 36.7 C 75 18 99/62 L 95 Laboratory Results CBC notes hemoglobin 14.8, hematocrit 44.9, white count 10.4, and platelet count 244223. Electrolytes note a sodium of 137, potassium 5.3, chloride 106, bicarb 27, BUN 24, creatinine 1.35, and glucose of 117. Three troponin I levels are undetectable less than 0.015. Diagnostic Findings EKG notes atrial flutter with a variable ventricular response at 77 beats per minute. There is a rightward axis. Echocardiogram notes normal systolic function with ejection fraction 55-60%. There are no wall motion abnormalities. There is moderate LVH and mild mitral regurgitation. Chest x-ray shows borderline cardiomegaly and no acute disease. PG Care Time/CCT Total # of Minutes Spent Total Time Spent with Patient: Total time spent is greater than 50% in coordination of care (as documented) at patient's floor/unit and/or counseling patient: Coding Level of Care Code 02597 Initial Inpt Care Lvl 3 Diagnoses Chest pain, exertional R07.9 CAD (coronary artery disease) I25.10 Aortic aneurysm I71.9 New onset atrial flutter I48.92
[2021-11-01] MEDS ORDERED: niCARdipine HCL INJ 2.5 MG/ML 10 ML AMP ONE (11:42)
[2021-11-01] MEDS ORDERED: MIDAZOLAM HCL 1 MG/ML 2ML VIAL ONE (11:42)
[2021-11-01] MEDS ORDERED: HEPARIN (PORCINE) 1000 UNIT/ML 10 ML (CATH LAB USE ONLY) ONE (11:42)
[2021-11-01] MEDS ORDERED: fentaNYL citrate 100 MCG/2 ML VIAL ONE (11:43)
[2021-11-01] MEDS ORDERED: NITROGLYCERIN/D5W 100MCG/ML 20ML SYR ONE (11:43)
--- NOTE | 2021-11-01 12:01 | Pre Anesthesia Assessment ---
Date of Service November 01, 2021 Pre Sedation Assessment Vital Signs Temp Pulse Pulse Resp BP BP Pulse Ox 11/01/21 11:27 81 11/01/21 11:00 98.2 F 83 18 130/88 98 11/01/21 08:00 72 11/01/21 07:47 97.9 F 82 18 116/80 98 11/01/21 04:16 98.1 F 81 18 102/68 96 10/31/21 23:33 98.1 F 75 18 99/62 L 95 10/31/21 20:15 98.1 F 80 18 114/72 96 10/31/21 16:01 97.7 F 78 16 120/77 97 10/31/21 16:00 97.7 F 78 18 120/77 97 10/31/21 14:00 84 18 109/69 96 Cardiovascular RRR, no murmur, no edema Respiratory normal respiratory effort, lungs clear to auscultation Pre-Sedation Airway Assessment Smoking Status: Never smoker Hx Sleep Apnea: No Hx Difficult Intubation: No Short, Thick Neck: No Thyromental Distance: > or= 3.5 Finger Breadths Oral Cavity: + WNL Mallampati Class: III ASA: ASA3 NPO Status Date of Last Intake of Fluids: 10/31/21 Date of Last Intake of Solid Food: 10/31/21 Procedure Planning Contraindications for Sedation: none Current Medications Reviewed: Yes Notes The planned sedation has been discussed with the patient. Informed Consent was obtained. I have identified the patient, determined the appropriateness of sedation and have assessed the patient immediately prior to the procedure. All medicine(s) and interventions are by my order.
--- NOTE | 2021-11-01 12:55 | Post Anesthesia Assessment ---
Date of Service November 01, 2021 Post Sedation Assessment Vital Signs Temp Pulse Pulse Resp BP BP Pulse Ox 11/01/21 12:40 82 20 111/79 99 11/01/21 11:27 81 11/01/21 11:00 98.2 F 83 18 130/88 98 11/01/21 08:00 72 11/01/21 07:47 97.9 F 82 18 116/80 98 11/01/21 04:16 98.1 F 81 18 102/68 96 10/31/21 23:33 98.1 F 75 18 99/62 L 95 10/31/21 20:15 98.1 F 80 18 114/72 96 10/31/21 16:01 97.7 F 78 16 120/77 97 10/31/21 16:00 97.7 F 78 18 120/77 97 10/31/21 14:00 84 18 109/69 96 Recovery Score Activity: Moves 4 extremities Respiration: Deep Breath/Cough Circulation: +/-20% PreAnes Value Consciousness: Fully Awake Oxygen Saturation: > 92% On Room Air Post Anesthesia Score: 10 Discharge Sedation Level of Care: Fast Track Phase II Post Sedation Plan On clinical assessment, the patient appears to have tolerated the sedation without complications. Patient is recovering as anticipated. Patient will continue to be monitored by nursing and may be discharged when sedation discharge criteria are met per below protocol. Upon Completions of procedure up to 15 minutes continue every 5 minute vital signs and the P.A.R. score; then discharge to a Phase I or Fast Track to Phase II per the following guidelines: * Discharge Patient to appropriate Phase II area if PAR is 8 or greater or return to pre- procedure baseline. The post - procedure orders will be as directed. * If PAR score is less than 8 or not return to pre-procedure baseline then patient will follow Phase I monitoring till PAR is reached for Phase II. The Phase I may be done in procedure room or may call to secure a Phase I area. * If naloxone or flumazenil are used for reversal, hold in Phase I for continued monitoring from when last reversal dose was given for a minimum of 60 minutes or longer pending the nurse and/or physician discretion of patient condition before discharge to Phase II. Please call the Sedation Physician to re-evaluate and complete post-note for discharge to Phase II area. Do NOT discharge from procedure sedation or Phase 1 until post- sedation evaluation note is complete by procedure /sedation MD Sedation Discharge Instructions to be given to the patient at discharge to home.
--- NOTE | 2021-11-01 12:59 | Cardiac Catheterization ---
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 Keeper Cardiac Status Clinical evaluation leading to the procedure CAD Presenation: Unstable angina Anginal Classification: CCS III Heart Failure: No Cardiogenic Shock within 24 Hours: No Cardiac Arrest within 24 Hours: No Imaging Studies Past 6 Months: Yes Stress Studies Past 6 Months: No Diagnostic Physicians Name: Hakan Bautista MD Status: Elective Closure Device Percutaneous Entry Location: Radial Closure Device: Radial Band Recommendations: Medical Therapy and/or Counseling PCI Indication: Unstable Angina Intraprocedure Events Significant Disection: No Perforation: No Cardiac Cath Procedure Full Procedure Date November 01, 2021 Pre-Procedure Diagnosis Pre-Procedure Diagnosis: Acute Coronary Syndrome AUC Score AUC Score: 7 Post-Procedure Diagnosis Post-Procedure Diagnosis: Severe CAD and Normal Intracardiac Pressures Procedure(s) Performed Procedure(s) Performed: Coronary Angiography, Left Heart Cath and IVUS Dye Beck Reel Operator Hakan Bautista MD Liquor Inspector(s) Max Estimated Blood Loss Estimated Blood Loss: 10 Medication(s) Medication(s): Clopidogrel, Fentanyl, Heparin, Lidocaine 1%, Nicardipine, Nitroglycerin and Versed Summary of Findings Indication: Suspected ACS Access: 6 Fr right radial artery Catheters: [place], diagnostic JL 3.5, EBU 3.5 guide Findings: LM - 40% mid stenosis, mildly calcified (IVUS 40%, MLA 6.8 mm2). LAD - medium caliber, 50% late-proximal/mid segment disease (40-50% by IVUS with eccentric calcified plaque), remainder of vessel without significant disease and wraps around apex. Circumflex - medium caliber 70% ostial stenosis (IVUS 70%, MLA 3.0 mm2) with eccentric calcified plaque. Remainder of vessel with no significant disease. RCA - Dominant, large caliber, 30% mid segment disease, distal stent patent with 30-40% in-stent restenosis at take-off of PDA. PDA, large RPL without significant disease. LVEDP - 3 Arterial Closure: TR Band Summary: 1. Multivessel coronary artery disease - 40% mid left main - 70% eccentric, calcified ostial circumflex - 50% eccentric, calcified late-proximal LAD - Patent distal RCA with 30-40% in-stent restenosis. 2. Normal intracardiac filling pressure Recommendations: No acute disease identified. Left main does not appear severe. Intervention to ostial circumflex would be complex, higher-risk. Recommend trial of medical management including further management of new atrial flutter. Transition to dual therapy with anticoagulation, aspirin Long-term if refractory anginal symptoms in future could consider PCI versus CABG. Hemodynamics Rest Ao:: 105/70/88 Final Ao: 96//86 LV: 113/3 Recommendations Recommendations: Medical Therapy and/or Counseling Specimens Specimens: None Radiation Exposure (mGy) 1443 Contrast (mls) 65 Fluids (cc crystalloids) Fluids (cc crystalloids): 190 Drains Drains: None Anesthesia Moderate Procedural Complication(s) None Disposition PCU I attest to the content of the Intraoperative Record and any orders documented therein. Any exceptions are noted below. RadarioG Card Cath Procedure Codes Cardiac Catheterization Procedure 1: Cardiovascular Cath Procedures: 15462 Coronaries and LHC (+/-LV) Therapeutic Services & Ancillary Proc Procedure 1: Cardiovascular Tx and Anc Procedures: 72634 IV Ultrasound (Coronary or Graft) Procedure 2: Cardiovascular Tx and Anc Procedures: 50172 IV Ultrasound Ea addl vessel Moderate Sedation Procedure 1: Sedation/Anesthesia: 98708 Mod Sedation by the same physician;Init15 Min Child Age 5 & Up Procedure 2: Sedation/Anesthesia: 28465 Mod Sedation by the same physician; Ea [id number] Minutes PG Care Time/CCT Total # of Minutes Spent Total Time Spent with Patient: Total time spent is greater than 50% in coordination of care (as documented) at patient's floor/unit and/or counseling patient:
[2021-11-01] MEDS ORDERED: SODIUM CHLORIDE 0.9% 1000ML 1,000 ML IV SCH (13:45)
--- NOTE | 2021-11-01 14:15 | Electrocardiogram Report ---
Test Reason : Blood Pressure : / mmHG Vent. Rate : 083 BPM Atrial Rate : 332 BPM P-R Int : 000 ms QRS Dur : 084 ms QT Int : 354 ms P-R-T Axes : 087 098 -19 degrees QTc Int : 415 ms Atrial flutter with 4:1 A-V conduction Rightward axis T wave abnormality, consider inferior ischemia Abnormal ECG When compared with ECG of 31-OCT-2021 11:17, ST now depressed in Inferior leads Confirmed by Anand Chester ([id number]) on 11/01/2021 2:14:43 PM Referred By: REFERRED SELF Confirmed By:Anand Chester
[2021-11-01] MEDS ORDERED: Nursing to Pharmacy Communication SCH (16:15)
--- NOTE | 2021-11-01 17:07 | Discharge Summary ---
Date of Service November 01, 2021 Admission HPI Per Admitting Provider Attending: Dr. Oglesby This is a 71-year-old male with a past medical history including CAD, previous stent placement, hyperkalemia, Peyronie's disease, diabetes mellitus type 2 controlled with Metformin, PTCA with chronic use of Plavix and aspirin, GERD, diverticulosis, hyperlipidemia, chronic kidney disease. Patient reports that he was cutting and carrying firewood yesterday when he started to experience chest pain with exertion. He went to his home to sit down and developed diaphoresis with pain that radiated into the right arm. The pain then seemed to settle down and he elected not to present to the emergency department since it was a holiday. He then was rolling up carpet and took it outside to dispose of it when he experienced chest pain again. This time he had what felt like acid reflux going from the stomach into the middle of the chest. He again experienced diaphoresis and clamminess. This morning he experienced recurrent chest pain with some shortness of breath. He presented to the emergency department was found to be in atrial flutter and with a potassium of 5.6. The patient was given nitro cream and chest pain seemed to improve. Repeat electrolytes revealed a potassium of 5.3. EKG was performed and showed atrial flutter with no evidence of ST changes. Repeat EKG with chest pain again revealed no acute changes to ST waves. Troponin was negative. Patient is he modynamically stable. Currently his systolic blood pressure is 115. Patient is rate controlled with a current heart rate of 78 bpm. Patient has no nausea or vomiting. No back pain. Some shortness of breath without hypoxia. Patient's SaO2 is 99 to 100% on room air. Patient has no other acute complaints. Patient is fully vaccinated for Covid. He received his booster last month with [employer]. Patient is a lifelong non-smoker No other acute complaints. Principal Diagnosis New onset atrial flutter Chest pain Discharge Exam Constitutional WD/WN, vitals as above Eyes EOM intact bilaterally; no conjunctival abnormality ENMT external ear and nose normal, oropharynx normal Neck trachea midline, no thyromegaly normal visual inspection Respiratory normal respiratory effort, lungs clear to auscultation no respiratory distress Cardiovascular RRR, no murmur, no edema Gastrointestinal (Abdomen) Inspection/Auscultation: abdomen normal to inspection; abdomen not distended Musculoskeletal no cyanosis or clubbing, extremities motor strength 5/5 Skin no rashes, warm and dry Neurologic moves all extremities and awake Psychiatric Orientation: alert, oriented to person and cooperative Discharge Data Allergies Allergy/AdvReac Type Severity Reaction Status Date / Time No Known Drug Allergies Allergy Unknown Verified 10/31/21 09:46 Consultations 10/31/21 10:10 ED Decision to Admit Stat 10/31/21 16:01 Consult Cardiology Routine Procedures Performed Operation Date: 11/01/21 14:00 Actual Procedures p Cineradiography w/Routine Exam - Blas Bautista MD s IVUS Coronary Single Vessel - Blas Bautista MD s IVUS Coronary each ADDL Vessel - Blas Bautista MD s Cath, Left with Cors and Vent - Blas Bautista MD Ordered Studies 11/01/21 11:45 CL Cath Imgs for PACS use only DAILY 11/01/21 13:00 CL IVUS Coronary Single Vessel Routine Hospital Course (1) Chest pain, exertional: Attending: Dr. Oglesby Impression: 71-year-old male with chest pain since yesterday. Exacerbated with exertion. Patient with normal troponin x1. Persistent chest pain and spite of nitro paste. Previous history of cardiac catheterization with some nontreatable occlusion. LHC on 11/01 was negative for acute ACS. Did see some progression of prior noted blockage: - 40% mid left main - 70% eccentric, calcified ostial circumflex - 50% eccentric, calcified late-proximal LAD - Patent distal RCA with 30-40% in-stent restenosis. Medical management. If this fails, consider attempting PCI vs. CABG. Discharged on beta-jose g. Patient was chest pain free on discharge. (2) New onset atrial flutter: No prior history of atrial flutter or atrial fibrillation. Echo showed EF 55-60% without any regional wall motion issues and mild mitral regurg. - Started metoprolol; converted to Toprol XL on discharge. -> HR was steady in the 80s his entire admission. - Xarelto prescribed. Not my first choice, but insurance would not cover Eliquis. - F/u with Dr. Arias in 1-2 weeks. (3) Acute hyperkalemia: Presenting potassium level was 5.6. Repeat value 5.3. - Lowered his ACEi on discharge as his BP was on the low side of normal anyhow. (4) CAD (coronary artery disease): History of PCI in the past with stent placement Several vessels were untreatable at that time in 2013 Echocardiogram Continue aspirin - Stop Plavix on d/c in favor of Xarelto Cardiology consult requested. (5) Iliac artery aneurysm, bilateral: Pedal pulses are palpable No edema Continue aspirin. - Stop Plavix on d/c in favor of Xarelto (6) DM type 2 (diabetes mellitus, type 2): Most recent hemoglobin A1c is 08/06/2021 and was 6.1% - Continue metformin on dishcarge. (7) History of coronary artery stent placement: See above with CAD. Continue aspirin - Stop Plavix on d/c in favor of Xarelto (8) Acid reflux disease: Continue home dose of pantoprazole 20 mg p.o. HS (9) Hyperlipidemia: Continue atorvastatin Outpatient management (10) DVT prophylaxis: Total Time Total Time Spent Total Time Spent (In Minutes): 35 Discharge Plan Discharge Items Patient Disposition: Home - Self-Care Reason For Visit: CHEST PAIN, NEW ATRIAL FLUTTER Discharge Diagnosis: New atrial flutter Activity: Resume your previous activity Non-emergency contact: Primary Care Provider and Reaming Machine Operator Call non-emergency contact if: your symptoms worsen Follow-up/Referrals: Srinath Arias Jr, MD, [facility] [Family Provider] - (Please see Dr. Arias in 1-2 weeks for follow-up.) Raymond Davalos MD [Primary Care Provider] - Diet: Heart Healthy Add Attending Provider Instructions: Mr. Quesada, You were admitted with chest pain that may have been due to a new heart rhythm caused atrial flutter. We did a catheterization of your coronary blood vessels which did not show any areas that needed a new stent, though you do have some progression of your coronary artery disease. We are adjusting medications to help keep you feeling well and hopefully prevent further chest pain. Please see Dr. Arias in 1-2 weeks for follow-up. For this new rhythm called atrial flutter, please start taking the apixaban (Eliquis) instead of clopidogrel (Plavix). We do not want to thin your blood too much, and this medication helps prevent strokes due to your heart rhythm. Pending Studies at Discharge: No Stand-Alone Forms: My [facility], Smoking Cessation Medications and DC Order Prescriptions: New metoprolol succinate 25 mg tablet extended release 24 hr 25 mg PO DAILY Qty: 30 RF: 0 Xarelto 20 mg tablet 20 mg PO DAILY Qty: 30 RF: 0 Continued metformin 1,000 mg tablet 1,000 mg PO BID Qty: 180 RF: 3 sildenafil 50 mg tablet 50 mg PO UD PRN (Reason: Erectile Dysfunction) Qty: 18 RF: 3 aspirin 81 mg Tablet,Delayed Release (Dr/Ec) 81 mg PO HS RF: 0 atorvastatin 40 mg tablet 40 mg PO HS RF: 0 pantoprazole 20 mg tablet,delayed release (DR/EC) 20 mg PO HS RF: 0 cholecalciferol (vitamin D3) 50 mcg (2,000 unit) capsule 50 mcg PO HS RF: 0 mecobalamin (vitamin B12) 1,000 mcg tablet,chewable 1,000 mcg PO HS RF: 0 Changed lisinopril 5 mg tablet 5 mg PO HS Qty: 0 RF: 0 Discontinued carvedilol 3.125 mg tablet 3.125 mg PO BID Qty: 180 RF: 3 clopidogrel [Plavix] 75 mg tablet 75 mg PO QAM RF: 0 Discharge Orders: Discharge Order (Routine); Ordered 11/01/21 Ordered By: Rafi Alston/Other Patient Handouts: High Blood Sugar (Hyperglycemia), Hypoglycemia (Low Blood Sugar), Managing Type 2 Diabetes, 5 Steps for Eating Healthier Admission Data Admit Date/Time: 10/31/21 11:04 Attending Provider: Rafi Devine Admit Provider: Александр Oglesby Primary Care Provider: Raymond Davalos V. Other Providers: Dexter Carrasco ; Rafi Devine Other Interventions: Discharge Summary Assessment (RN) Last Done: 11/01/21 16:33 Coding Level of Care Code D/C DAY MANAGEMENT >30 MINS Diagnoses Chest pain, exertional R07.9 New onset atrial flutter I48.92 Acute hyperkalemia E87.5 CAD (coronary artery disease) I25.10 Iliac artery aneurysm, bilateral I72.3 DM type 2 (diabetes mellitus, type 2) E11.9 History of coronary artery stent placement Z95.5 Acid reflux disease K21.9 Hyperlipidemia E78.5 DVT prophylaxis Z29.9
== END 2021-11-01 17:15 | disposition home or self-care (01) ==
LOC: ED 08:33 → EDINP 08:33 → SUATTDRO 11:04 → 2S 15:20

== ENCOUNTER 2022-02-22 09:53 | Observation (INO) ==
[2022-02-22] MEDS ORDERED: niCARdipine HCL INJ 2.5 MG/ML 10 ML AMP ONE (09:56)
[2022-02-22] MEDS ORDERED: HEPARIN (PORCINE) 1000 UNIT/ML 10 ML (CATH LAB USE ONLY) ONE ×2 (09:56→11:07)
[2022-02-22] MEDS ORDERED: MIDAZOLAM HCL 1 MG/ML 2ML VIAL ONE ×2 (09:56→11:19)
[2022-02-22] MEDS ORDERED: NITROGLYCERIN/D5W 100MCG/ML 20ML SYR ONE (09:57)
[2022-02-22] MEDS ORDERED: fentaNYL citrate 100 MCG/2 ML VIAL ONE (09:57)
--- NOTE | 2022-02-22 10:06 | Emergency Department Note ---
History of Present Illness General Chief complaint: Heart Alert Stated complaint: HEART ALERT Source: patient, EMS, RN notes reviewed and old records reviewed Mode of arrival: ambulatory Limitations: no limitations History of Present Illness This Patient is 71-year-old male who was sent over by EMS from the cardiology office after he had EKG changes while having a stress test. He got dizzy and lightheaded he had right-sided chest pain and ST segment elevations inferiorly. EMS arrived. The patient did receive 2 aspirin prior to arrival as well as nitro. They sent me an EKG which showed the ST segments have improved and then a follow-up 1 which showed they had gotten worse. Based on the EKG changes I did call a heart alert and Dr. Bautista apparently already knows about this patient. Upon arrival the patient says he feels better and has minimal to no symptoms. He has some minimal right arm discomfort which he rates as a 1. No chest pain or shortness of breath no lightheadedness or dizziness but he reports being short of breath earlier he is on a blood thinner for A. fib. Home Medications Medication Instructions Recorded Confirmed Type metformin 1,000 mg tablet 1,000 mg PO BID #180 tab 04/28/21 02/17/22 Rx aspirin 81 mg tablet,delayed 81 mg PO HS 10/31/21 02/17/22 History release atorvastatin 40 mg tablet 40 mg PO HS 10/31/21 02/17/22 History cholecalciferol (vitamin D3) 50 50 mcg PO HS 10/31/21 02/17/22 History mcg (2,000 unit) capsule mecobalamin (vitamin B12) 1,000 1,000 mcg PO HS 10/31/21 02/17/22 History mcg chewable tablet pantoprazole 20 mg tablet,delayed 20 mg PO HS 10/31/21 02/17/22 History release nitroglycerin 0.4 mg sublingual 0.4 mg SUBLINGUAL Q5M PRN #15 tab 11/05/21 02/17/22 Rx tablet rivaroxaban 20 mg tablet (Xarelto) 20 mg PO DAILY #90 tab 11/23/21 02/17/22 Rx isosorbide mononitrate 30 mg 30 mg PO DAILY #90 tab 11/25/21 02/17/22 Rx tablet,extended release 24 hr metoprolol succinate 25 mg 25 mg PO DAILY #90 tab 11/25/21 02/17/22 Rx tablet,extended release 24 hr ranolazine 500 mg tablet,extended 500 mg PO BID #180 tab 11/25/21 02/17/22 Rx release,12 hr (Ranexa) clindamycin phosphate 1 % lotion 1 applic TOPICAL DAILY #60 ml 12/30/21 02/17/22 Rx lisinopril 5 mg tablet 5 mg PO HS #90 tab 02/10/22 02/17/22 Rx sertraline 50 mg tablet 50 mg PO DAILY #30 tab 02/17/22 02/17/22 Rx Allergies Allergy/AdvReac Type Severity Reaction Status Date / Time No Known Drug Allergies Allergy Unknown Verified 02/17/22 10:22 Past Med/Surg History Medical History Acute bronchitis Acute diverticulitis February 2019 Acute hyperkalemia Adjustment disorder with depressed mood Antiplatelet or antithrombotic long-term use CAD (coronary artery disease) Cerebral microvascular disease Depression Diverticulitis dx/treated x 3 weeks ago Diverticulosis of colon DM type 2 (diabetes mellitus, type 2) NIDDM DVT prophylaxis Dysplastic nevus Elevated blood sugar GERD (gastroesophageal reflux disease) Hiatal hernia History of colon polyps History of diverticulitis History of heart artery stent Hyperlipidemia Hypertension New onset atrial flutter Osteoarthritis Peyronie's disease Vestibular neuronitis Surgical History History of cardiac cath 6 YEARS AGO - CP - [facility] - 1 STENT PLACED - FOLLOWS W/ DR. BOOTHE History of colonoscopy History of herniorrhaphy UMBILCAL History of shoulder surgery LEFT History of tonsillectomy History of tooth extraction Strabismus REPAIR>RT/LEFT EYE Family History Family/Other Colorectal cancer Mother Colorectal cancer Diabetes Uncle Myocardial infarction Father Myocardial infarction Stroke Denies family history of Ovarian cancer Prostate cancer Breast cancer Social History Smoking Status: Never smoker Second Hand Exposure: No; Hx Alcohol Use: No Hx Substance Use: No Preferred Language: Icelandic Communication Ability: Effective House Wirer Required: No Beliefs That Will Affect Care: None marital status: Current Living Situation: Spouse current occupational status: employed current occupation: [id number] Other Information That Helps Us Care for You: No Feels Safe at Home: Yes Safety Concerns: Feels Safe At This Time Childhood Exposure to Second-Hand Smoke: Yes Dental Care, Regularly: Yes Physical Activity Frequency: 3-4 Times per Week Seatbelt Use: always Sunscreen Use: Yes Assistive Devices: None Review of Systems A total of 10 systems reviewed and were otherwise negative Physical Exam Vital Signs Vital Signs - 24 hr 02/22/22 09:55 02/22/22 10:01 02/22/22 10:03 Temperature 36.6 C Temperature Source Oral Pulse Rate 61 61 Pulse Rate [Apical] Pulse Rhythm [Apical] Pulse Strength [Apical] Respiratory Rate 20 Respiratory Effort / Characteristics Non-Labored Spontaneous Respiratory Depth Normal Respiratory Pattern Blood Pressure 140/89 Blood Pressure [Right Arm] Blood Pressure Mean 106 Blood Pressure Mean [Right Arm] Blood Pressure Position [Right Arm] Pulse Oximetry 97 98 Oxygen Delivery Method Room Air Room Air Room Air Sepsis Recent Fever Within 48 Hours No Sepsis New/Unexplained Change in Mental Status No Sepsis Action Taken by Nursing No Action Required 02/22/22 10:09 02/22/22 11:40 Temperature Temperature Source Pulse Rate Pulse Rate [Apical] 62 59 L Pulse Rhythm [Apical] Regular Pulse Strength [Apical] Normal Respiratory Rate 19 16 Respiratory Effort / Characteristics Non-Labored Spontaneous Non-Labored Respiratory Depth Normal Normal Respiratory Pattern Regular Blood Pressure Blood Pressure [Right Arm] 132/81 114/73 Blood Pressure Mean Blood Pressure Mean [Right Arm] 98 86 Blood Pressure Position [Right Arm] Lying Pulse Oximetry 98 100 Oxygen Delivery Method Room Air Room Air Sepsis Recent Fever Within 48 Hours Sepsis New/Unexplained Change in Mental Status Sepsis Action Taken by Nursing General: Well developed well nourished male who appears in no acute distress, breathing comfortably on room air. Normal speech HEENT: Normal cephalic atraumatic. Pupils are equal round and reactive to light. Extraocular movements are intact. Oropharynx is pink with moist mucous membranes. No swelling of the mouth lips or tongue. Neck: Supple with a midline trachea. No meningeal signs or stiffness, no JVD or bruits. No Stridor. Chest: Clear to auscultation bilaterally. No wheezes or rhonchi. No increased work of breathing. Heart: Regular rate and rhythm without murmurs or gallops. Abdomen: Soft nontender, nondistended without rebound guarding or rigidity. Extremities: No cyanosis clubbing or edema. No calf tenderness or assymetry Spine/Back. Non tender to palpation. No CVA tenderness Skin: Good turgor without rashes. Neurologic exam: Cranial nerves two through 12 are intact. Motor and sensation are intact and symmetrical throughout. Course Administered Medications Sodium Chloride (Nss 1000ml) 500 mls @ 100 mls/hr IV .Q5H JENNY Stop: 02/22/22 16:44 Last Admin: 02/22/22 13:00 Dose: 100 mls/hr Documented by: [id number] Discontinued Medications Clopidogrel Bisulfate (Clopidogrel Bisulfate 300 Mg Tab) Confirm Administered D ose 600 mg .ROUTE .STK-MED ONE Stop: 02/22/22 11:46 Last Admin: 02/22/22 11:48 Dose: 600 mg Documented by: [id number] Fentanyl Citrate (Fentanyl Citrate 100 Mcg/2 Ml Vial) Confirm Administered Dose 100 mcg .ROUTE .STK-MED ONE Stop: 02/22/22 09:58 Last Admin: 02/22/22 11:20 Dose: 100 mcg Documented by: [id number] Heparin Sodium (Porcine) (Heparin (Porcine) 1000 Unit/Ml 10 Ml (Sand Technician Use Only)) Confirm Administered Dose 10,000 units .ROUTE .STK-MED ONE Stop: 02/22/22 09:57 Last Admin: 02/22/22 11:11 Dose: 10,000 units Documented by: [id number] Heparin Sodium (Porcine) (Heparin (Porcine) 1000 Unit/Ml 10 Ml (Sand Technician Use Only)) Confirm Administered Dose 10,000 units .ROUTE .STK-MED ONE Stop: 02/22/22 11:08 Last Admin: 02/22/22 11:45 Dose: 2,000 units Documented by: [id number] Heparin Sodium/Sodium Chloride (Heparin In Nss Infusion 1000 Unit/500 Ml (2 U/Ml) Bag) Confirm Administered Dose 3,000 units IV .STK-MED ONE Stop: 02/22/22 09:58 Last Admin: 02/22/22 11:11 Dose: 3,000 units Documented by: [id number] Midazolam HCl (Midazolam Hcl 1 Mg/Ml 2ml Vial) Confirm Administered Dose 2 mg .ROUTE .STK-MED ONE Stop: 02/22/22 09:57 Last Admin: 02/22/22 11:11 Dose: 2 mg Documented by: [id number] Midazolam HCl (Midazolam Hcl 1 Mg/Ml 2ml Vial) Confirm Administered Dose 2 mg .ROUTE .STK-MED ONE Stop: 02/22/22 11:20 Last Admin: 02/22/22 11:44 Dose: 1 mg Documented by: [id number] Nicardipine HCl (Nicardipine Hcl Inj 2.5 Mg/Ml 10 Ml Amp) Confirm Administered Dose 25 mg .ROUTE .STK-MED ONE Stop: 02/22/22 09:57 Last Admin: 02/22/22 11:11 Dose: 25 mg Documented by: [id number] Nitroglycerin/Dextrose (Nitroglycerin/D5w 100mcg/Ml 20ml Syr) Confirm Administered Dose 2,000 mcg .ROUTE .STK-MED ONE Stop: 02/22/22 09:58 Last Admin: 02/22/22 11:11 Dose: 2,000 mcg Documented by: [id number] Critical Care Time Critical Care Time: Yes Total Critical Care Time: 30 Medical Decision Making Differential Diagnosis Acute coronary syndrome, arrhythmia, vasospasm, FL, electrolyte or metabolic abnormality, COVID Medical Records Attestation: I reviewed the patient's medical records. Home Medications Current Medication List: was personally reviewed by me Laboratory Data Attestation: I reviewed the patient's lab results. Result diagrams: 02/22/22 10:05 02/22/22 10:05 Lab Results 02/22/22 02/22/22 02/22/22 Range/Units 10:02 10:05 10:05 WBC 8.47 (4.8-10.8) K/uL RBC 4.69 L (4.7-6.1) M/uL Hgb 14.2 (14.0-18.0) g/dL Hct 43.1 (42-52) % MCV 91.9 (80-100) fL MCH 30.3 (25-34) pg MCHC 32.9 (32-36) g/dL RDW Std Deviation 44.8 (36.4-46.3) fL RDW Coeff of Connie 13.3 (11.5-14.5) % Plt Count 279 (130-400) K/uL MPV 10.0 (7.4-10.4) fL Immature Gran % (Auto) 0.1 % Neut % (Auto) 57.9 % Lymph % (Auto) 31.8 % [place] % (Auto) 7.3 % Eos % (Auto) 2.4 % Baso % (Auto) 0.5 % Neut # (Auto) 4.91 (1.4-6.5) K/uL Lymph # (Auto) 2.69 (1.2-3.4) K/uL [place] # (Auto) 0.62 H (0.11-0.59) K/uL Eos # (Auto) 0.20 (0-0.5) K/uL Baso # (Auto) 0.04 (0-0.2) K/uL Immature Gran # (Auto) 0.01 (0.00-0.02) K/uL PT 12.3 H (9.0-12.0) Seconds INR 1.2 H (0.9-1.1) APTT 30.2 (21.0-31.0) Seconds PTT Ratio 1.1 Activ Coag Time Kaolin (94-140) SECONDS Sodium (136-145) mmol/L Potassium (3.5-5.1) mmol/L Chloride (98-107) mmol/L Carbon Dioxide (21-32) mmol/L Anion Gap (3-11) BUN (6-23) mg/dl Creatinine (0.6-1.4) mg/dl Est Cr Clr Drug Dosing ml/min Est GFR ( Amer) ml/min Est GFR (Non-Af Amer) ml/min BUN/Creatinine Ratio (10-20) Glucose (70-99(Fasting)) mg/dl Calcium (8.5-10.1) mg/dl Total Bilirubin (0.2-1.0) mg/dl AST (13-39) U/L ALT (7-52) U/L Alkaline Phosphatase (34-104) U/L Troponin I High Sens (0-20) pg/ml Total Protein (6.0-8.3) gm/dl Albumin (3.4-5.0) gm/dl Globulin (2.5-4.0) gm/dl Albumin/Globulin Ratio (0.9-2) Lipase (11-82) U/L SARS-CoV-2, RNA, NAAT NEGATIVE (NEGATIVE) 02/22/22 02/22/22 02/22/22 Range/Units 10:05 11:04 11:26 WBC (4.8-10.8) K/uL RBC (4.7-6.1) M/uL Hgb (14.0-18.0) g/dL Hct (42-52) % MCV (80-100) fL MCH (25-34) pg MCHC (32-36) g/dL RDW Std Deviation (36.4-46.3) fL RDW Coeff of Connie (11.5-14.5) % Plt Count (130-400) K/uL MPV (7.4-10.4) fL Immature Gran % (Auto) % Neut % (Auto) % Lymph % (Auto) % [place] % (Auto) % Eos % (Auto) % Baso % (Auto) % Neut # (Auto) (1.4-6.5) K/uL Lymph # (Auto) (1.2-3.4) K/uL [place] # (Auto) (0.11-0.59) K/uL Eos # (Auto) (0-0.5) K/uL Baso # (Auto) (0-0.2) K/uL Immature Gran # (Auto) (0.00-0.02) K/uL PT (9.0-12.0) Seconds INR (0.9-1.1) APTT (21.0-31.0) Seconds PTT Ratio Activ Coag Time Kaolin 225 H 261 H (94-140) SECONDS Sodium 134 L (136-145) mmol/L Potassium 5.7 H (3.5-5.1) mmol/L Chloride 101 (98-107) mmol/L Carbon Dioxide 24 (21-32) mmol/L Anion Gap 9 (3-11) BUN 15 (6-23) mg/dl Creatinine 1.13 (0.6-1.4) mg/dl Est Cr Clr Drug Dosing 68.3 ml/min Est GFR ( Amer) 76.4 ml/min Est GFR (Non-Af Amer) 66.0 ml/min BUN/Creatinine Ratio 13.3 (10-20) Glucose 112 H (70-99(Fasting)) mg/dl Calcium 9.6 (8.5-10.1) mg/dl Total Bilirubin 0.7 (0.2-1.0) mg/dl AST 16 (13-39) U/L ALT 16 (7-52) U/L Alkaline Phosphatase 69 (34-104) U/L Troponin I High Sens 4.8 (0-20) pg/ml Total Protein 8.1 (6.0-8.3) gm/dl Albumin 4.9 (3.4-5.0) gm/dl Globulin 3.2 (2.5-4.0) gm/dl Albumin/Globulin Ratio 1.5 (0.9-2) Lipase 33 (11-82) U/L SARS-CoV-2, RNA, NAAT (NEGATIVE) Imaging Data Attestation: I personally reviewed and interpreted this imaging study as follows: My Impression: Chest x-rayno acute infiltrate, failure, pneumothorax Radiologist's Impression: Chest X-Ray 02/22/22 10:01 SINGLE VIEW CHEST CLINICAL HISTORY: Atypical chest pain. FINDINGS: An AP, portable, upright chest radiograph is compared to study dated 11/05/2021. The examination is degraded by portable technique and apical lordotic positioning. An electronic device partially obscures the left upper chest. The heart is enlarged. The pulmonary vasculature is noncongested. Chronic interstitial thickening is similar to previous. There are scattered foci of parenchymal scarring. No airspace consolidation or large pleural effusion is identified. There are scattered calcified granulomas. No pneumothorax is seen. The skeletal structures are osteopenic. The bony thorax is grossly intact. IMPRESSION: Cardiomegaly with no acute cardiopulmonary abnormality. ACT 112: Negative or not required by law. Electronically signed by: Pablo Myers M.D. 02/22/2022 10:30 AM ECG Data Attestation: I personally reviewed and interpreted this ECG as follows: Indication: + chest pain Rate (beats per minute): 64 Rhythm: + normal sinus ECG Intervals/blocks: + Normal QRS, + Normal QT and + Normal [place] ECG [place]: + Normal ECG ST segments: + Normal ST segments ECG Findings: no PACs or no PVCs Comparison ECG Date: from (EMS EKG from earlier) Change: the following changes noted (The significant ST segment elevation with reciprocal changes consistent with inferior infarct pattern have resolved) MDM Narrative This patient is a 71-year-old male who comes in after getting dizzy and lightheaded and had right-sided chest pain while taking stress test he has findings and EKG suggested with acute inferior FL. These have actually improved and seem to wax and wane. He is asymptomatic I did call a heart alert. He has received aspirin nitro prior to arrival. His EKG improved while he was here. Interestingly, his EKG changes seem to wax and wane as EMS had one that looked normal and then ST segment elevation now normal again. He will go to the [facility] for an acute coronary syndrome/acute FL. It may be more vasospasm. Patient's COVID testing was negative. His initial troponin was also negative. Potassium is mildly high at 5.7. He has no other significant lecture light or metabolic abnormality. Dr. Bautista promptly saw the patient in the ER will be taking him to the [facility]. He did receive aspirin and nitroglycerin at the embosser apprentice office prior to coming here. 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
[2022-02-22 10:17] LABS: Basophils # (auto) 0.04 K/uL (0-0.2); Basophils % (auto) 0.5 %; Eosinophils % (auto) 2.4 %; Hematocrit (blood only) 43.1 % (42-52); Hemoglobin 14.2 g/dL (14.0-18.0); Immature Granulocytes # (auto) 0.01 K/uL (0.00-0.02); Immature Granulocytes % (auto) 0.1 %; Lymphocytes # (auto) 2.69 K/uL (1.2-3.4); Lymphocytes % (auto) 31.8 %; Mean Corpuscular Hemoglobin 30.3 pg (25-34); Mean Corpuscular Hgb Conc 32.9 g/dL (32-36); Mean Corpuscular Volume 91.9 fL (80-100); Monocytes # (auto) 0.62 K/uL (0.11-0.59); Monocytes % (auto) 7.3 %; Neutrophils # (auto) 4.91 K/uL (1.4-6.5); Neutrophils % (auto) 57.9 %; Platelet Count 279 K/uL (130-400); RDW Coefficient of Variation 13.3 % (11.5-14.5); RDW Standard Deviation 44.8 fL (36.4-46.3); Red Blood Count 4.69 M/uL (4.7-6.1); White Blood Count 8.47 K/uL (4.8-10.8)
--- NOTE | 2022-02-22 10:20 | Pre Anesthesia Assessment ---
Date of Service February 22, 2022 Pre Sedation Assessment Vital Signs Temp Pulse Pulse Resp BP BP Pulse Ox 02/22/22 10:09 62 19 132/81 98 02/22/22 10:01 61 98 02/22/22 09:55 97.9 F 61 20 140/89 97 Cardiovascular RRR, no murmur, no edema Respiratory normal respiratory effort, lungs clear to auscultation Pre-Sedation Airway Assessment Smoking Status: Never smoker Hx Sleep Apnea: No Hx Difficult Intubation: No Short, Thick Neck: No Thyromental Distance: > or= 3.5 Finger Breadths Oral Cavity: + WNL Mallampati Class: III ASA: ASA4 Procedure Planning Contraindications for Sedation: none Current Medications Reviewed: Yes Notes The planned sedation has been discussed with the patient. Informed Consent was obtained. I have identified the patient, determined the appropriateness of sedation and have assessed the patient immediately prior to the procedure. All medicine(s) and interventions are by my order.
[2022-02-22 10:25] LABS: INR 1.2 (0.9-1.1); Partial Thromboplastin Ratio 1.1; Partial Thromboplastin Time 30.2 Seconds (21.0-31.0); Prothrombin Time 12.3 Seconds (9.0-12.0)
--- NOTE | 2022-02-22 10:31 | XRay Report ---
SINGLE VIEW CHEST CLINICAL HISTORY: Atypical chest pain. FINDINGS: An AP, portable, upright chest radiograph is compared to study dated 11/05/2021. The examinat ion is degraded by portable technique and apical lordotic positioning. An electronic device partially obscures the left upper chest. The heart is enlarged. The pulmonary vasculature is noncongested. Chr onic interstitial thickening is similar to previous. There are scattered foci of parenchymal scarring . No airspace consolidation or large pleural effusion is identified. There are scattered calcified gr anulomas. No pneumothorax is seen. The skeletal structures are osteopenic. The bony thorax is grossly intact. IMPRESSION: Cardiomegaly with no acute cardiopulmonary abnormality. ACT 112: Negative or not required by law. Electronically signed by: Pablo Myers M.D. 02/22/2022 10:30 AM
[2022-02-22 10:41] LABS: Albumin Globulin Ratio 1.5 (0.9-2); Albumin Level 4.9 gm/dl (3.4-5.0); BUN Creatinine Ratio 13.3 (10-20); Bilirubin,Total 0.7 mg/dl (0.2-1.0); Calcium 9.6 mg/dl (8.5-10.1); Creatinine Clr Calc Pharmacy 68.3 ml/min; Est GFR (African American) 76.4 ml/min; Globulin 3.2 gm/dl (2.5-4.0); Potassium 5.7 mmol/L (3.5-5.1); Total Protein 8.1 gm/dl (6.0-8.3)
[2022-02-22 11:06] LABS: Troponin I High Sensitivity 4.8 pg/ml (0-20)
[2022-02-22] MEDS ORDERED: ACETAMINOPHEN 325 MG TAB PO PRN (11:43)
[2022-02-22] MEDS ORDERED: ONDANSETRON INJ 2 MG/ML 2 ML VIAL IV PRN (11:43)
[2022-02-22] MEDS ORDERED: CLOPIDOGREL BISULFATE 300 MG TAB ONE (11:45)
[2022-02-22] MEDS ORDERED: SODIUM CHLORIDE 0.9% 1000ML 500 ML IV SCH (11:45)
--- NOTE | 2022-02-22 12:11 | Post Anesthesia Assessment ---
Date of Service February 22, 2022 Post Sedation Assessment Vital Signs Temp Pulse Pulse Resp BP BP Pulse Ox 02/22/22 11:55 62 16 108/67 99 02/22/22 11:40 59 L 16 114/73 100 02/22/22 10:09 62 19 132/81 98 02/22/22 10:01 61 98 02/22/22 09:55 97.9 F 61 20 140/89 97 Recovery Score Activity: Moves 4 extremities Respiration: Deep Breath/Cough Circulation: +/-20% PreAnes Value Consciousness: Fully Awake Oxygen Saturation: > 92% On Room Air Post Anesthesia Score: 10 Discharge Sedation Level of Care: Fast Track Phase II Post Sedation Plan On clinical assessment, the patient appears to have tolerated the sedation without complications. Patient is recovering as anticipated. Patient will continue to be monitored by nursing and may be discharged when se dation discharge criteria are met per below protocol. Upon Completions of procedure up to 15 minutes continue every 5 minute vital signs and the P.A.R. score; then discharge to a Phase I or Fast Track to Phase II per the following guidelines: * Discharge Patient to appropriate Phase II area if PAR is 8 or greater or return to pre- procedure baseline. The post - procedure orders will be as directed. * If PAR score is less than 8 or not return to pre-procedure baseline then patient will follow Phase I monitoring till PAR is reached for Phase II. The Phase I may be done in procedure room or may call to secure a Phase I area. * If naloxone or flumazenil are used for reversal, hold in Phase I for continued monitoring from when last reversal dose was given for a minimum of 60 minutes or longer pending the nurse and/or physician discretion of patient condition before discharge to Phase II. Please call the Sedation Physician to re-evaluate and complete post-note for discharge to Phase II area. Do NOT discharge from procedure sedation or Phase 1 until post- sedation evaluation note is complete by procedure /sedation MD Sedation Discharge Instructions to be given to the patient at discharge to home.
--- NOTE | 2022-02-22 12:36 | Cardiology Consultation ---
Date of Consultation February 22, 2022 Assessment & Plan (1) ACS (acute coronary syndrome): Patient with recurrent anginal symptoms and transient ST elevations inferiorly today prior to stress test. Presentation concerning for ACS and unstable CAD. Recommend urgent cardiac catheterization and possible PCI. Discussed risks, benefits, alternatives of procedure with patient and they are willing to proceed. Further recommendations pending findings of coronary angiography. History of Present Illness History of Present Illness Mr. Quesada is a 71-year-old man sent from outpatient cardiology clinic with transient inferior ST elevations and recurrent burning right arm pain. Patient followed by Dr. Boothe for his cardiac care. He has a history of coronary artery disease with prior inferior VT 10/2012 with TIM to distal RCA. Recently was diagnosed with new onset paroxysmal atrial flutter on anticoagulation with Xarelto. Admitted 10/2021 with chest/arm pain and underwent repeat cardiac catheterization which showed 40% left main, 70% eccentric ostial circumflex 50% lateproximal LAD and a patent distal RCA with 30 to 40% in-stent restenosis. Medical management recommended. More recently has been having recurrent right arm burning symptoms occurring both with exertion and rest. There was concern for recurrent atrial flutter and MCOT ordered/in place. Also ordered stress echo for which was to have today. Initial resting pictures obtained. Patient then endorsed recurrent right arm pain, diaphoresis. ECG at that time showed inferior ST elevation. Transfer emergently to [facility] ED. By time of arrival chest pain improved, ST elevations resolved. Allergies Allergy/AdvReac Type Severity Reaction Status Date / Time No Known Drug Allergies Allergy Unknown Verified 02/17/22 10:22 Home Medications Medication Instructions Recorded Confirmed Type metformin 1,000 mg tablet 1,000 mg PO BID #180 tab 04/28/21 02/17/22 Rx aspirin 81 mg tablet,delayed 81 mg PO HS 10/31/21 02/17/22 History release atorvastatin 40 mg tablet 40 mg PO HS 10/31/21 02/17/22 History cholecalciferol (vitamin D3) 50 50 mcg PO HS 10/31/21 02/17/22 History mcg (2,000 unit) capsule mecobalamin (vitamin B12) 1,000 1,000 mcg PO HS 10/31/21 02/17/22 History mcg chewable tablet pantoprazole 20 mg tablet,delayed 20 mg PO HS 10/31/21 02/17/22 History release nitroglycerin 0.4 mg sublingual 0.4 mg SUBLINGUAL Q5M PRN #15 tab 11/05/21 02/17/22 Rx tablet rivaroxaban 20 mg tablet (Xarelto) 20 mg PO DAILY #90 tab 11/23/21 02/17/22 Rx isosorbide mononitrate 30 mg 30 mg PO DAILY #90 tab 11/25/21 02/17/22 Rx tablet,extended release 24 hr metoprolol succinate 25 mg 25 mg PO DAILY #90 tab 11/25/21 02/17/22 Rx tablet,extended release 24 hr ranolazine 500 mg tablet,extended 500 mg PO BID #180 tab 11/25/21 02/17/22 Rx release,12 hr (Ranexa) clindamycin phosphate 1 % lotion 1 applic TOPICAL DAILY #60 ml 12/30/21 02/17/22 Rx lisinopril 5 mg tablet 5 mg PO HS #90 tab 02/10/22 02/17/22 Rx sertraline 50 mg tablet 50 mg PO DAILY #30 tab 02/17/22 02/17/22 Rx Patient History Medical History Acute bronchitis Acute diverticulitis February 2019 Acute hyperkalemia Adjustment disorder with depressed mood Antiplatelet or antithrombotic long-term use CAD (coronary artery disease) Cerebral microvascular disease Depression Diverticulitis dx/treated x 3 weeks ago Diverticulosis of colon DM type 2 (diabetes mellitus, type 2) NIDDM DVT prophylaxis Dysplastic nevus Elevated blood sugar GERD (gastroesophageal reflux disease) Hiatal hernia History of colon polyps History of diverticulitis History of heart artery stent Hyperlipidemia Hypertension New onset atrial flutter Osteoarthritis Peyronie's disease Vestibular neuronitis Surgical History History of cardiac cath 6 YEARS AGO - CP - [facility] - 1 STENT PLACED - FOLLOWS W/ DR. BOOTHE History of colonoscopy History of herniorrhaphy UMBILCAL History of shoulder surgery LEFT History of tonsillectomy History of tooth extraction Strabismus REPAIR>RT/LEFT EYE Family History Family/Other Colorectal cancer Mother Colorectal cancer Diabetes Uncle Myocardial infarction Father Myocardial infarction Stroke Denies family history of Ovarian cancer Prostate cancer Breast cancer Social History Smoking Status: Never smoker Second Hand Exposure: No; Hx Alcohol Use: No Hx Substance Use: No Preferred Language: Russian Communication Ability: Effective Water Tanker Driver Required: No Beliefs That Will Affect Care: None marital status: Current Living Situation: Spouse current occupational status: employed current occupation: [employer] Other Information That Helps Us Care for You: No Feels Safe at Home: Yes Safety Concerns: Feels Safe At This Time Childhood Exposure to Second-Hand Smoke: Yes Dental Care, Regularly: Yes Physical Activity Frequency: 3-4 Times per Week Seatbelt Use: always Sunscreen Use: Yes Assistive Devices: None Review of Systems Review of Systems: All systems reviewed & are unremarkable except as noted in HPI & below Physical Exam Physical Exam: General: Comfortable HEENT: Sclerae anicteric Lungs: Clear to auscultation bilaterally, no crackles or wheezes Cardiac: Regular rate and rhythm, no murmurs. Vascular: 2+ radial, DP pulses. No bruits Abdomen: Soft, nontender Extremities: Well perfused, no peripheral edema Neuro: Nonfocal Psych: Alert orient x3, normal affect and mood Results & Data ([facility]) Vital Signs (Past 12 Hours) Vital Signs Temp Pulse Pulse Resp BP BP Pulse Ox 02/22/22 10:09 62 19 132/81 98 02/22/22 10:01 61 98 02/22/22 09:55 97.9 F 61 20 140/89 97 PG Care Time/CCT Total # of Minutes Spent Total Time Spent with Patient: Total time spent is greater than 50% in coordination of care (as documented) at patient's floor/unit and/or counseling patient: Coding Level of Care Code 44290 Office/OBS Consult Lvl 4 Diagnoses ACS (acute coronary syndrome) I24.9
--- NOTE | 2022-02-22 12:58 | Cardiac Catheterization ---
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 Cardiac Status Clinical evaluation leading to the procedure CAD Presenation: Unstable angina Anginal Classification: CCS IV Diagnostic Physicians Name: Hakan Bautista MD Closure Device Recommendations: PCI without planned CABG Cardiac Cath Procedure Full Procedure Date February 22, 2022 Pre-Procedure Diagnosis Pre-Procedure Diagnosis: Acute Coronary Syndrome AUC Score AUC Score: 7 Post-Procedure Diagnosis Post-Procedure Diagnosis: Severe CAD, Successful PCI and Normal Intracardiac Pressures Procedure(s) Performed Procedure(s) Performed: Coronary Angiography, Left Heart Cath, Drug Eluting Stent and IVUS Match Up Person Hakan Bautista MD Administrative Coordinator(s) Mike Estimated Blood Loss Estimated Blood Loss: 15 Medication(s) Medication(s): Clopidogrel, Fentanyl, Heparin, Lidocaine 1%, Nicardipine, Nitroglycerin and Versed Summary of Findings Indication: Accelerating angina, transient inferior ST elevations on ECG Access: 6 Fr right radial artery Catheters: [place], diagnostic JL 3.5, AR-1 guide, EBU 3.5 guide Findings: LM -30- 40% mid stenosis, mildly calcified LAD - medium caliber, 40-50% late-proximal/mid segment disease, remainder of vessel without significant disease and wraps around apex. Circumflex - medium caliber 80%, hazy ostial stenosis. Remainder of vessel with no significant disease. RCA - Dominant, large caliber, 30% mid segment disease, 50 to 60% distal stenosis, distal stent patent with 30-40% in-stent restenosis at take-off of PDA. PDA, large RPL without significant disease. YASMANI II flow throughout vessel. IVUS/PCI of RCA RCA cannulated with AR-1 guide BMW wire placed into distal PLB With the aid of a telescope support catheter [place] IVUS catheter passed into distal right posterior AV branch IVUS pullback revealed widely patent distal stent with mild eccentric calcification in the midportion. Distal RCA with 70% stenosis, minimally calcified, no clear thrombus. Remainder of vessel with only mild disease. With YASMANI II flow, inferior ST elevations decision made to stent to distal RCA Distal RCA direct stented with 4.0 x 15 mm [place] drug-eluting stent Stent postdilated with 4.5 NC IC vasodilators administered. Post procedure YASMANI III flow, stent well expanded with minimal residual stenosis and no apparent cardiac complications. -- PCI of ostial circumflex-- Antithrombotic therapy: Heparin, clopidogrel Procedure: Left main cannulated with EBU 3.5 guide Pre-procedure flow YASMANI 3 Whisper wire passed across ostial circumflex lesion into distal vessel BMW wire placed in the LAD Ostial circumflex lesion predilated with 2.5 compliant balloon [place] IVUS catheter passed into proximal circumflex. Pullback revealed severe stenosis, calcified with only mild left main disease. Dilated ostial circumflex lesion stented with 3.5 x 12 mm Xience drug-eluting stent Stent post-dilated with 4.0 noncompliant balloon IC vasodilators administered for spasm Post procedure YASMANI 3 flow, stent well expanded with minimal residual stenosis and no apparent cardiac complications. No apparent compromise of LAD. Arterial Closure: TR band Summary: 1. Severe multi vessel coronary artery disease -70% distal RCA (by IVUS). 30% distal RCA in-stent restenosis (calcified eccentric plaque on IVUS). 80% hazy ostial circumflex stenosis 40% earlymid LAD stenosis, 30 to 40% mid left main stenosis (unchanged from 10/2021 when previously IVUS) 2. Normal intracardiac filling pressure 3. Successful PCI of distal RCA with single drug-eluting stent (4.0 x 15 mm [place]; postdilated with 4.5 NC) 4. Successful PCI of ostial circumflex with single drug-eluting stent (3.5 x 12 mm Xience; postdilated with 4.0 NC). Recommendations: To PCU for continued monitoring Loaded with clopidogrel 600 mg in Cotton Ball Machine Tender Continue triple therapy with aspirin, clopidogrel, Xarelto while hospitalized Discharge on dual therapy with clopidogrel, Xarelto Consult cardiac Rehab Hemodynamics Rest Ao:: 95/59/ Final Ao: 95/60/76 LV: -- Recommendations Recommendations: PCI without planned CABG Specimens Specimens: None Radiation Exposure (mGy) 4120 Contrast (mls) 110 Anesthesia Moderate 7528-0403 Procedural Complication(s) None Disposition PCU I attest to the content of the Intraoperative Record and any orders documented therein. Any exceptions are noted below. [employer] Card Cath Procedure Codes Cardiac Catheterization Procedure 1: Cardiovascular Cath Procedures: 61310 Coronaries and LHC (+/-LV) Therapeutic Services & Ancillary Proc Procedure 1: Cardiovascular Tx and Anc Procedures: 32106 IV Ultrasound (Coronary or Graft) Procedure 2: Cardiovascular Tx and Anc Procedures: 40371 IV Ultrasound Ea addl vessel Stenting Procedure 1: Cardiovascular Stent Procedures: 65334 Perc transcatheter placement of intracoronary stent(s), with ang Procedure 2: Cardiovascular Stent Procedures: 82407 Ea addl branch of a major coronary artery PG Care Time/CCT Total # of Minutes Spent Total Time Spent with Patient: Total time spent is greater than 50% in coordination of care (as documented) at patient's floor/unit and/or counseling patient:
--- NOTE | 2022-02-22 15:32 | Electrocardiogram Report ---
Test Reason : Blood Pressure : / mmHG Vent. Rate : 064 BPM Atrial Rate : 064 BPM P-R Int : 180 ms QRS Dur : 084 ms QT Int : 420 ms P-R-T Axes : 102 094 026 degrees QTc Int : 433 ms Poor data quality, interpretation may be adversely affected Normal sinus rhythm Nonspecific ST and T wave abnormality Abnormal ECG When compared with ECG of 05-NOV-2021 12:56, Sinus rhythm has replaced Atrial flutter ST elevation now present in Inferior leads T wave inversion no longer evident in Inferior leads Confirmed by Anand [place] ([id number]) on 02/22/2022 3:32:05 PM Referred By: Blas Bautista Confirmed By:Anand [place]
--- NOTE | 2022-02-22 15:37 | Electrocardiogram Report ---
Test Reason : Blood Pressure : / mmHG Vent. Rate : 051 BPM Atrial Rate : 051 BPM P-R Int : 208 ms QRS Dur : 090 ms QT Int : 434 ms P-R-T Axes : 091 090 035 degrees QTc Int : 400 ms Poor data quality, interpretation may be adversely affected Sinus bradycardia with Premature atrial complexes Rightward axis Borderline ECG When compared with ECG of 22-FEB-2022 10:00, (unconfirmed) Premature atrial complexes are now Present Confirmed by Anand [place] ([id number]) on 02/22/2022 3:36:55 PM Referred By: Blas Bautista Confirmed By:Anand [place]
[2022-02-22] MEDS ORDERED: NITROGLYCERIN SL 0.4 MG/TAB TAB SL PRN (15:50)
[2022-02-22] MEDS ORDERED: ATORVASTATIN 40 MG TAB PO SCH (21:00)
[2022-02-22] MEDS ORDERED: PANTOprazole 40 MG TAB PO SCH ×2 (21:00)
[2022-02-23] MEDS ORDERED: CLOPIDOGREL BISULFATE 75 MG TAB PO SCH (09:00)
[2022-02-23] MEDS ORDERED: ASPIRIN 81 MG ECTAB PO SCH (09:00)
[2022-02-23] MEDS ORDERED: SERTRALINE HCL 50 MG TABLET PO SCH (09:00)
[2022-02-23] MEDS ORDERED: METOPROLOL SUCC 25MG EXT REL TAB PO SCH (09:00)
[2022-02-23 10:35] LABS: BUN Creatinine Ratio 13.8 (10-20); Calcium 9.4 mg/dl (8.5-10.1); Creatinine Clr Calc Pharmacy 70.9 ml/min; Est GFR (African American) 79.8 ml/min; Est GFR (Non-African American) 68.9 ml/min; Potassium 4.3 mmol/L (3.5-5.1)
[2022-02-23] MEDS ORDERED: RIVAROXABAN 20 MG TAB PO SCH (16:30)
--- NOTE | 2022-03-07 23:53 | Cardiac Catheterization ---
[facility] Data: Maintenance Carpenter Cardiac Status Clinical evaluation leading to the procedure CAD Presenation: Non STEMI Diagnostic Physicians Name: Hakan Bautista MD Closure Device Recommendations: PCI without planned CABG Cardiac Cath Procedure Full Procedure Date 02/22/2022 Pre-Procedure Diagnosis Pre-Procedure Diagnosis: Non STEMI AUC Score AUC Score: 8 Post-Procedure Diagnosis Post-Procedure Diagnosis: Severe CAD and Successful PCI Procedure(s) Performed Procedure(s) Performed: Coronary Angiography, Left Heart Cath and IVUS Agriculture Technician Hakan Bautista MD Bindery Helper(s) Mike Estimated Blood Loss Estimated Blood Loss: 10 Medication(s) Medication(s): Clopidogrel, Fentanyl, Heparin, Lidocaine 1%, Nicardipine, Nitroglycerin and Versed Summary of Findings Indication: ACS with transient inferior ST elevations prior to stress test Access: 6 Fr right radial artery Catheters: [place], EBU 3.5 guide, AR-1 guide Findings: LM - 40% mid stenosis, mildly calcified (IVUS 40%, MLA 6.8 mm2). LAD - medium caliber, 40% late-proximal/mid segment disease, remainder of vesse l without significant disease and wraps around apex. Circumflex - medium caliber, 80-90% hazy, ostial stenosis with eccentric calcified plaque. Remainder of vessel with no significant disease. RCA - Dominant, large caliber, 30% mid segment disease, 60% stenosis just before prior distal stent (approximately 70% by IVUS). Stent patent with 30-40% in- stent restenosis at take-off of PDA (minimal ISR with eccentric calcification by IVUS). PDA, large RPL without significant disease. -- PCI of RCA-- Antithrombotic therapy: Heparin, clopidogrel Procedure: RCA cannulated with AR-1 guide Pre-procedure flow YASMANI 3 BMW wire passed across lesion into distal vessel [place] IVUS pullback across distal LAD stent, distal stenosis revealed widely patent stent with eccentric calcification and approximately 70% stenosis just before stent. Distal RCA before old stent stented with 4.0 x 15 mm [place] drug-eluting stent Stent post-dilated with 4.5 noncompliant balloon IC vasodilators administered for spasm Post procedure YASMANI 3 flow, stent well expanded with minimal residual stenosis and no apparent cardiac complications. PCI of ostial circumflex Left main cannulated with EBU 3.5 guide Preprocedure flow YASMANI-3 Whisper wire navigated across ostial lesion into distal circumflex BMW wire placed into mid LAD Ostial circumflex dilated with 2.5 balloon IVUS of circumflex performed showing severe, calcified disease extending to ostium. Mild disease in left main. Ostium of circumflex stented with 3.5 x 12 mm Xience TIM Stent postdilated with 4.0 NC balloon IC vasodilators administered for spasm Post procedure YASMANI 3 flow, stent well expanded with minimal residual stenosis and no apparent cardiac complications. Arterial Closure: TR band Summary: 1. Multivessel coronary artery disease - 80-90% hazy, calcified ostial circumflex 70% (by IVUS) distal RCA stenosis just before prior patent stent -40% late-proximal LAD 2. Normal intracardiac filling pressure 3. Successful PCI of distal RCA with single drug-eluting stent (4.0 x 15 mm [place]; postdilated with 4.5 NC). 4. Successful PCI of ostial circumflex with single drug-eluting stent (3.5 x 12 mm Xience; postdilated with 4.0 NC). Recommendations: To PCU for continued monitoring Loaded with clopidogrel in Maintenance Carpenter Continue dual-antiplatelet therapy for at least 1 year Continue statin, and ASCVD risk factor modification Consult cardiac Rehab Hemodynamics Rest Ao:: 95/59/76 Final Ao: 95/60/76 LV: -- Recommendations Recommendations: PCI without planned CABG Specimens Specimens: None Radiation Exposure (mGy) 4120 Contrast (mls) 110 Anesthesia Moderate [id number] Procedural Complication(s) None Disposition PCU I attest to the content of the Intraoperative Record and any orders documented therein. Any exceptions are noted below. [facility] Card Cath Procedure Codes Cardiac Catheterization Procedure 1: Cardiovascular Cath Procedures: 00291 Coronaries and LHC (+/-LV) Therapeutic Services & Ancillary Proc Procedure 1: Cardiovascular Tx and Anc Procedures: 16592 IV Ultrasound (Coronary or Graft) Procedure 2: Cardiovascular Tx and Anc Procedures: 22794 IV Ultrasound Ea addl vess el Moderate Sedation Procedure 1: Sedation/Anesthesia: 36317 Mod Sedation by the same physician;Init15 Min Child Age 5 & Up Procedure 2: Sedation/Anesthesia: 79177 Mod Sedation by the same physician; Ea [id number] Minutes Stenting Procedure 1: Cardiovascular Stent Procedures: 91799 Perc transcatheter placement of intracoronary stent(s), with ang Procedure 2: Cardiovascular Stent Procedures: 37721 Ea addl branch of a major coronary artery PG Care Time/CCT Total # of Minutes Spent Total Time Spent with Patient: Total time spent is greater than 50% in coordination of care (as documented) at patient's floor/unit and/or counseling patient:
--- NOTE | 2022-03-08 00:16 | Discharge Summary ---
Date of Service 02/23/2022 Admission HPI Per Admitting Provider Mr. Quesada is a 71-year-old man sent from outpatient cardiology clinic with transient inferior ST elevations and recurrent burning right arm pain. Patient followed by Dr. Arias for his cardiac care. He has a history of coronary artery disease with prior inferior [place] 10/2012 with TIM to distal RCA. Recently was diagnosed with new onset paroxysmal atrial flutter on anticoagulation with Xarelto. Admitted 10/2021 with chest/arm pain and underwent repeat cardiac catheterization which showed 40% left main, 70% eccentric ostial circumflex 50% lateproximal LAD and a patent distal RCA with 30 to 40% in-stent restenosis. M edical management recommended. More recently has been having recurrent right arm burning symptoms occurring both with exertion and rest. There was concern for recurrent atrial flutter and MCOT ordered/in place. Also ordered stress echo for which was to have today. Initial resting pictures obtained. Patient then endorsed recurrent right arm pain, diaphoresis. ECG at that time showed inferior ST elevation. Transfer emergently to [facility] ED. By time of arrival chest pain improved, ST elevations resolved. Discharge Data Procedures Performed Operation Date: 02/22/22 10:00 Actual Procedures s Cineradiography w/Routine Exam - Blas Bautista MD p Cath, Left with Cors and Vent - Blas Bautista MD p Drug Eluting Stent SGl Vessel - Blas Bautista MD s Drug Eluting Stent each ADDTL Vessel - Blas Bautista MD s IVUS Coronary each ADDL Vessel - Blas Bautista MD s IVUS Coronary Single Vessel - Blas Bautista MD Hospital Course (1) CAD (coronary artery disease): Patient underwent urgent cardiac catheterization revealing severe distal RCA disease and severe 90% ostial circumflex disease. Ostial circumflex thought to be likely culprit for recent acute symptoms. Underwent multivessel PCI with single TIM placed to distal RCA and additional TIM placed to ostial circumflex. Procedure uncomplicated. Admitted to telemetry for observation. Electrically stable overnight. No apparent access site complications. Chest pain-free on the morning of discharge. Discharged on dual therapy with clopidogrel and prior Xarelto. Patient to follow-up with Dr. Arias in 2 weeks. Discharge Instructions Home Medications metformin 1,000 mg tablet 1,000 mg PO BID #180 tab 04/28/21 [Rx Confirmed 03/03/22] atorvastatin 40 mg tablet 40 mg PO HS 10/31/21 [History Confirmed 03/03/22] cholecalciferol (vitamin D3) 50 mcg (2,000 unit) capsule 50 mcg PO HS 10/31/21 [History Confirmed 03/03/22] mecobalamin (vitamin B12) 1,000 mcg chewable tablet 1,000 mcg PO HS 10/31/21 [History Confirmed 03/03/22] pantoprazole 20 mg tablet,delayed release 20 mg PO HS 10/31/21 [History Confirmed 03/03/22] nitroglycerin 0.4 mg sublingual tablet 0.4 mg SUBLINGUAL Q5M PRN #15 tab 11/05/21 [Rx Confirmed 03/03/22] rivaroxaban 20 mg tablet (Xarelto) 20 mg PO DAILY #90 tab 11/23/21 [Rx Confirmed 03/03/22] metoprolol succinate 25 mg tablet,extended release 24 hr 25 mg PO DAILY #90 tab 11/25/21 [Rx Confirmed 03/03/22] clindamycin phosphate 1 % lotion 1 applic TOPICAL DAILY #60 ml 12/30/21 [Rx Confirmed 03/03/22] lisinopril 5 mg tablet 5 mg PO HS #90 tab 02/10/22 [Rx Confirmed 03/03/22] sertraline 50 mg tablet 50 mg PO DAILY #30 tab 02/17/22 [Rx Confirmed 03/03/22] clopidogrel 75 mg tablet 75 mg PO QAM #30 tab 02/23/22 [Rx Confirmed 03/03/22] Coding Level of Care Code 76141 OBS Care - Discharge Diagnoses CAD (coronary artery disease) I25.10
== END 2022-02-23 14:01 | disposition home or self-care (01) ==
LOC: ED 09:53 → 2S 10:18 → CC 10:18

== ENCOUNTER 2023-10-04 06:17 | Inpatient (IN) ==
--- NOTE | 2023-09-13 10:10 | PAT Medication Instructions ---
Medication Instructions Date of Service September 13, 2023 Home Medications Medication Instructions Recorded nitroglycerin 0.4 mg sublingual 0.4 mg sublingual Q5M PRN chest 11/05/21 tablet pain #15 tabs metoprolol succinate 25 mg 25 mg PO QAM #90 tabs 12/13/22 tablet,extended release 24 hr lisinopril 5 mg tablet 5 mg PO HS #90 tabs 04/20/23 azelastine 137 mcg (0.1 %) nasal 1 spray intranasal BID #30 mL 04/26/23 spray aerosol albuterol sulfate 90 mcg/actuation 2 puff inhalation .[id number] PRN 05/29/23 aerosol inhaler shortness of breath or wheezing #6.7 grams sertraline 50 mg tablet 50 mg PO QAM #90 tabs 05/29/23 clopidogrel 75 mg tablet 75 mg PO QAM #90 tabs 08/18/23 fluticasone furoate 100 1 inh inhalation Q24H #60 ea 08/25/23 mcg-vilanterol 25 mcg/dose inhalation powder (Breo Ellipta) cholecalciferol (vitamin D3) 50 mcg (2,000 unit) capsule 50 mcg PO HS mecobalamin (vitamin B12) 1,000 mcg chewable tablet 1,000 mcg PO HS nitroglycerin 0.4 mg sublingual tablet 0.4 mg sublingual Q5M PRN chest pain metoprolol succinate 25 mg tablet,extended release 24 hr 25 mg PO QAM atorvastatin 80 mg tablet 80 mg PO HS pantoprazole 40 mg tablet,delayed release 40 mg PO QPM lisinopril 5 mg tablet 5 mg PO HS azelastine 137 mcg (0.1 %) nasal spray aerosol 1 spray intranasal BID albuterol sulfate 90 mcg/actuation aerosol inhaler 2 puff inhalation .[id number] PRN shortness of breath or wheezing sertraline 50 mg tablet 50 mg PO QAM clopidogrel 75 mg tablet 75 mg PO QAM fluticasone furoate 100 mcg-vilanterol 25 mcg/dose inhalation powder (Breo Ellipta) 1 inh inhalation Q24H aspirin 81 mg capsule 81 mg PO QAM empagliflozin 10 mg tablet (Jardiance) 10 mg PO QAM rivaroxaban 20 mg tablet (Xarelto) 20 mg PO HS Continue as directed nitroglycerin 0.4 mg sublingual tablet 0.4 mg sublingual Q5M PRN chest pain (if needed) ASK your prescriber and surgeon clopidogrel 75 mg tablet 75 mg PO QAM aspirin 81 mg capsule 81 mg PO QAM rivaroxaban 20 mg tablet (Xarelto) 20 mg PO HS STOP taking 3 days before surgery empagliflozin 10 mg tablet (Jardiance) 10 mg PO QAM Take morning of surgery With a small sip of water, OTHERWISE NOTHING TO EAT OR DRINK AFTER MIDNIGHT: metoprolol succinate 25 mg tablet,extended release 24 hr 25 mg PO QAM azelastine 137 mcg (0.1 %) nasal spray aerosol 1 spray intranasal BID albuterol sulfate 90 mcg/actuation aerosol inhaler 2 puff inhalation .[id number] PRN shortness of breath or wheezing (use if needed; please bring rescue inhaler with you to hospital day of surgery if possible) sertraline 50 mg tablet 50 mg PO QAM fluticasone furoate 100 mcg-vilanterol 25 mcg/dose inhalation powder (Breo Ellipta) 1 inh inhalation Q24H Take evening before surgery cholecalciferol (vitamin D3) 50 mcg (2,000 unit) capsule 50 mcg PO HS mecobalamin (vitamin B12) 1,000 mcg chewable tablet 1,000 mcg PO HS atorvastatin 80 mg tablet 80 mg PO HS pantoprazole 40 mg tablet,delayed release 40 mg PO QPM lisinopril 5 mg tablet 5 mg PO HS azelastine 137 mcg (0.1 %) nasal spray aerosol 1 spray intranasal BID albuterol sulfate 90 mcg/actuation aerosol inhaler 2 puff inhalation .[id number] PRN shortness of breath or wheezing (if needed) Other Notes If you have any questions please call us at [phone] or [phone] or [phone] or [phone]
--- NOTE | 2023-09-15 13:27 | Anesthesiology Consultation ---
Date of Service September 15, 2023 Assessment & Plan (1) Encounter for pre-operative examination: - check BSG am DOS. - cardiology office visit 06/28/23 [place]: "...Coronary artery disease. Repeat cardiac catheterization February 22, 2023 with no significant obstructive CAD. Patent stent sites. He is not experiencing any of his typical prior anginal symptoms. No evidence of heart failure on exam. Recurrent complaints of dizziness. No symptoms of bleeding. No GI fluid loss complaints. No orthostatic changes on blood pressure and pulse rate today. Complained of dizziness when standing today. This was despite blood pressure 122/82. Diffuse vascular disease. History of CVA or TIA...No symptoms muscular adverse reactions to maximum dose of atorvastatin. No bleeding complaints on anti thrombotic therapy. History of atrial arrhythmia. Regular rhythm on exam today. No symptoms recently of arrhythmia. His cardiac status and recent cardiac catheterization discussed and reviewed with him by me. Continue current antihypertensive and cardiac medication regimen. Continue current anti thrombotic regimen. In light of his diffuse vascular disease and history of atrial arrhythmias order CT angiography of head and neck as well as MRI of brain. Neurology consultation as scheduled. Follow-up visit with me in 6 months. Continue follow-up with his other clinicians..." Chart Review Chart Review: Acceptable Risk for Surgery and Patient seen in Pre Admission Testing Teaching & Discussion Pre-Anesthesia Teaching/Discussion Notes: Instructed NPO after midnight before surgery, except medications with 15 cc of water. Medication instructions provided according to the PAT guidelines. History Surgery Operation Date: 10/04/23 08:00 Proposed Procedures p Right Transcarotid Artery Revascularization - Tomás Birmingham MD Height/Weight Height: 5 ft 8 in Weight: 91 kg Allergies Allergy/AdvReac Type Severity Reaction Status Date / Time metformin AdvReac Diarrhea Verified 09/12/23 15:24 Medications Home Medications Medication Instructions Recorded Confirmed Last Taken cholecalciferol (vitamin D3) 50 50 mcg PO HS 10/31/21 09/12/23 03/30/23 mcg (2,000 unit) capsule mecobalamin (vitamin B12) 1,000 1,000 mcg PO HS 10/31/21 09/12/23 03/30/23 mcg chewable tablet nitroglycerin 0.4 mg sublingual 0.4 mg sublingual Q5M PRN chest 11/05/21 09/12/23 Unknown tablet pain #15 tabs metoprolol succinate 25 mg 25 mg PO QAM #90 tabs 12/13/22 09/12/23 03/30/23 tablet,extended release 24 hr atorvastatin 80 mg tablet 80 mg PO HS 03/21/23 09/12/23 03/30/23 pantoprazole 40 mg tablet,delayed 40 mg PO QPM 03/21/23 09/12/23 03/30/23 release lisinopril 5 mg tablet 5 mg PO HS #90 tabs 04/20/23 09/12/23 Unknown azelastine 137 mcg (0.1 %) nasal 1 spray intranasal BID #30 mL 04/26/23 09/12/23 Unknown spray aerosol albuterol sulfate 90 mcg/actuation 2 puff inhalation .[id number] PRN 05/29/23 09/12/23 Unknown aerosol inhaler shortness of breath or wheezing #6.7 grams sertraline 50 mg tablet 50 mg PO QAM #90 tabs 05/29/23 09/12/23 Unknown clopidogrel 75 mg tablet 75 mg PO QAM #90 tabs 08/18/23 09/12/23 Unknown fluticasone furoate 100 1 inh inhalation Q24H #60 ea 08/25/23 09/12/23 Unknown mcg-vilanterol 25 mcg/dose inhalation powder (Breo Ellipta) aspirin 81 mg capsule 81 mg PO QAM 09/12/23 09/12/23 Unknown empagliflozin 10 mg tablet 10 mg PO QAM 09/12/23 09/12/23 Unknown (Jardiance) rivaroxaban 20 mg tablet (Xarelto) 20 mg PO HS 09/12/23 09/12/23 Unknown Past Medical History Medical History (Updated 09/15/23 @ 13:59 by Jess Tierney PA-C) Iliac artery aneurysm Dizziness ongoing x several months-denies change or worsening since seeing PCP, cardiology or vascular surgery Asthma pt denies; denies needing to use rescue inhalers Paroxysmal A-fib History of heart attack 2012 s/p TIM Ascending aorta dilation Marijuana use daily Shortness of breath on exertion inh prn-pt denies recent use Abdominal pain resolved currently; "lower chest and upper abdominal pain" -- cardiac workup at [facility] with Dr. Boothe. Hx of diarrhea pt denies recent issues Peyronie's disease Antiplatelet or antithrombotic long-term use Diverticulitis hx-dx/treated History of colon polyps DM type 2 (diabetes mellitus, type 2) NIDDM Adjustment disorder with depressed mood Cerebral microvascular disease Hiatal hernia Hyperlipidemia Vestibular neuronitis hx CAD (coronary artery disease) s/p 3 stents, last placed 01/2022. GERD (gastroesophageal reflux disease) controlled, stable per pt Depression Hypertension controlled, stable per pt Patient denies h/o seizures, heart failure, blood clots/DVTs or blood transfusions. Exercise / Class Metabolic Activity II 4-5 Yardwork/Stairs/Walk up hill (SOB and dizziness with 1 FOS ongoing x several months; denies change or worsening; denies chest discomfort-cardio aware) Past Family History Family History Family/Other Colorectal cancer Mother Colorectal cancer Diabetes Uncle Myocardial infarction Father Myocardial infarction Stroke Denies family history of Ovarian cancer Prostate cancer Breast cancer Past Surgical History Surgical History (Updated 09/15/23 @ 13:40 by Jess Tierney PA-C) Hx of bilateral cataract extraction History of esophagogastroduodenoscopy (EGD) H/O heart artery stent x 3. Most recent placed 01/2022, [facility] Hx of local excision of skin lesion right arm History of shoulder surgery LEFT History of colonoscopy History of herniorrhaphy UMBILCAL History of tooth extraction Strabismus REPAIR>RT/LEFT EYE History of tonsillectomy History of cardiac cath 9 YEARS AGO - CP - [facility] - 1 STENT PLACED - FOLLOWS W/ DR. BOOTHE 02/22/2022-[facility]-2 stents placed. 01/2023, [facility], no stents. Past Anesthesia History No Hx of Anesthesia Complications and No Family Hx of Anesthesia Complications History of PONV No Hx of PONV and No Hx of Motion Sickness Social History Smoking Status: Never smoker Do You Dip or Chew Tobacco: No (years ago quit; advised) Hx Alcohol Use: No (no longer drinks) Alcohol type: beer alcohol intake frequency: holidays/special occasions only Hx Substance Use: Yes substance use type: marijuana Last Used Substance: Unknown Last Used Substance Other:: daily use-advised Review of Systems Snoring, denies witnessed apneas. Patient denies chest pain, fever, chills, cough, wheezing, or palpitations. Physical Exam Vital Signs Vitals BP 116/75 P 70 TEMP 97.9 SP02 96% on RA RESP 18 Physical Patient resting comfortably in chair in no acute distress, alert and oriented, responding appropriately throughout visit Full cervical extension range of motion without pain TMD 3.5 finger breadths Mallampati Score 3 Dentition: several chipped front upper teeth, denies loose teeth, caps/crowns, implants or bridges Lungs: normal respiratory effort. Good air movement, clear throughout to auscultation, no adventitious breath sounds Cardiac: regular rate and rhythm, no murmurs noted Lab Results Anesthesia Preop Results Results Anesthesia Widget: WBC 7.2 Thousand/uL (3.8-10.8) 08/21/23 Hgb 14.0 g/dL (13.2-17.1) 08/21/23 Hct 42.9 % (38.5-50.0) 08/21/23 Plt 243 Thousand/uL (140-400) 08/21/23 Na 136 mmol/L (135-146) 08/21/23 K 4.9 mmol/L (3.5-5.3) 08/21/23 Cl 101 mmol/L (98-110) 08/21/23 CO2 25 mmol/L (20-32) 08/21/23 BUN 21 mg/dL (7-25) 08/21/23 Creat 1.24 mg/dL (0.70-1.28) 08/21/23 Glucose Level 107 mg/dL (65-99) H 08/21/23 PT 12.5 Seconds (9.0-12.0) H 09/15/23 PTT 32.6 Seconds (21.0-31.0) H 09/15/23 INR 1.2 (0.9-1.1) H 09/15/23 HA1c 6.6 % (4.5-5.6) H 09/15/23 Blood Type A Positive 09/15/23 Antibody Screen NEGATIVE 09/15/23 Testing Electrocardiogram Date: 06/15/23 NSR, rate 67 bpm Low voltage QRS Echocardiogram Date: 10/31/21 EF 55-60% No regional wall motion abnormalities Moderate cLVH Mild mitral regurgitation Stress Test Date: 01/16/23 Negative exercise stress echo MPHR 103% METS 7.6 EF 60% Moderate cLVH Borderline dilatation of the aortic root and ascending aorta Cardiac Catheterization Date: 02/22/23 LM - 40% mid stenosis, mildly calcified (IVUS 30%, MLA 8.5mm2). LAD - medium caliber, 30% ostial, 50% late-proximal/mid segment disease (40-50% by IVUS with eccentric calcified plaque), remainder of vessel without significant disease and wraps around apex. Circumflex - medium caliber, ostial/proximal stent widely patent remainder of vessel with no significant disease. Medium OM 2 without disease. RCA - Dominant, large caliber, 30% mid segment disease, distal stents patent with 40% in-stent restenosis at take-off of PDA. PDA, large RPL without significant disease. Multivessel coronary artery disease - 40% mid left main - Widely patent ostial/proximal circumflex stent - 50% eccentric, calcified late-proximal LAD - Patent distal RCA stents with 40% in-stent restenosis in the distal most stent. Other Testing Brain MRI 09/06/23 1. No acute intracranial abnormality. 2. No abnormal enhancement. 3. Involutional changes with probable chronic microvascular ischemic disease Thyroid ultrasound 08/30/23 Multinodular thyroid gland as described above. These do not meet sonographic criteria for biopsy at this time. However, one year follow-up recommended to ensure stability of these nodules. Head and neck CTA 08/22/23 1. Short segment severe (80-90%) stenosis at the origin of the right internal carotid artery. 2. Moderate plaque within the proximal left internal carotid artery without stenosis. 3. Short segment severe stenosis at the origin of the left vertebral artery. 4. 1.3 cm enhancing nodule along the inferior aspect of the superficial lobe of the right parotid gland. This likely reflects a right parotid gland lesion. A mildly enlarged lymph node could appear similar. Ultrasound-guided fine-needle aspiration of this nodule is recommended. Unremarkable CTA of the head. Chest CTA 05/08/[address] angiogram of the thoracic aorta. 2. There is no evidence of pulmonary embolus in the main, lobar, or segmental pulmonary arteries. 3. Mild cardiomegaly with coronary artery atherosclerosis. 4. There is no airspace consolidation or pleural effusion. 5. Diffuse peribronchial thickening suggests bronchitis/reactive airway disease. Correlate clinically. 6. There are 2 right lower lobe pulmonary nodules measuring up to 4 mm. These are new from 2020 and may be inflammatory. Attention at follow-up is recommended. See below. 7. Additional findings as above. Abdomen CT 05/08/23 1. No acute abnormality identified within the visualized abdomen. 2. No definite bowel wall thickening or obstruction. 3. Colonic diverticulosis. No evidence for acute diverticulitis. 4. Stable aneurysmal dilatation of the infrarenal abdominal aorta and right common iliac arteries described above. 5. Additional findings as described above.
[~2023-10-04 06:17] MED LIST changes: -ASPI325T39 PO; -CARV3.12 PO; +CEFAZOLIN 2,000 MG/15 ML SYR IV SCH; -CLOP1TAB54 PO; +LACTATED RINGER'S 1,000 ML IV SCH; -LISI-789 PO; -LPT40 PO; -METF-384 PO; -OMEP20CA9 PO; -ZNT/150 PO
[2023-10-04] MEDS ORDERED: PROPOFOL IV EMULSION 10 MG/ML 20 ML VIAL IV ONE (06:55)
[2023-10-04] MEDS ORDERED: LIDOCAINE 2% 2 ML VIAL/AMP(20MG/ML) INFIL ONE (06:55)
[2023-10-04] MEDS ORDERED: ROCURONIUM BROMIDE 10 MG/ML 5 ML VIAL IV ONE ×2 (06:55→09:19)
[2023-10-04] MEDS ORDERED: GLYCOPYRROLATE 0.2 MG/ML VIAL ONE (06:55)
[2023-10-04] MEDS ORDERED: fentaNYL citrate PF 100 MCG/2 ML VIAL ONE ×2 (06:55→10:34)
[2023-10-04] MEDS ORDERED: HEPARIN 25000 UNIT/500 ML D5W IV ONE (06:59)
[2023-10-04] MEDS ORDERED: LACTATED RINGER'S 500 ML IV ONE (07:08)
--- NOTE | 2023-10-04 07:30 | History & Physical Bridge Note ---
Date of Service October 04, 2023 History & Physical Bridge Note I have examined the patient, reviewed the History & Physical and in the interval since the performance of the History & Physical I have noted the following changes of clinical significance: no changes noted
--- NOTE | 2023-10-04 07:30 | History & Physical Report ---
Date of Service October 04, 2023 History of Present Illness Primary Care Provider: Raymond Davalos MD Chief Complaint rm#6 here for f/u AAA and right RACHELLE aneurysm seen in Jun, now here for DARIO Subjective I had the pleasure of seeing Sher for evaluation of his carotid disease. 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 It was in the range of 80 to 90%. He is asymptomatic from this lesion. He has no symptoms of cerebrovascular insufficiency or vertebrobasilar insufficiency. Objective Vitals & Measurements HR: 74 (Monitored) BP: 102/70 SpO2: 95% Physical Exam On exam he is awake alert oriented x3. He is in no apparent distress. His blood pressure is 102/70 in the right arm. His radials and carotids are +2 bilaterally. His lungs are clear his heart in rate rhythm abdominal is benign he does have a small pulsatile mass mid epigastrium. Femorals and pedal's are +2 bilaterally. Exam is intact motor and sensory function. Diagnostic Results CT angiogram shows a 89% narrowing of his right internal carotid artery. Assessment/Plan 1. Carotid stenosis We went over the options of surgery versus following conservatively. We went over an endarterectomy as well as stenting both from the femoral and Tcar. He understands the risks options and benefits of all procedures and has elected to go ahead with a TCAR. He does have a problem with his teeth and is scheduled to be evaluated by his dentist to make sure that there is no underlying infection in his upper teeth or his plate in his lower central teeth. After that we will get him scheduled for the procedure. Thank you very much for letting us participate in the care of this patient. 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 [place], [address] [place] [address] EJS Result Type: .Outpt Ltr Date of Service: September 04, 2023 14:10 EST Authorization Status: Final Subject: Follow Up Visit Author or Import Date: SimonMD lemon Eugene J on September 04, 2023 14:13 EST Verified By: MD Birmingham Eugene J on September 04, 2023 14:13 EST Encounter info: [id number], [place] [id number], Clinic, 09/04/2023 - 09/04/2023 Allergies Allergy/AdvReac Type Severity Reaction Status Date / Time metformin AdvReac Diarrhea Verified 10/04/23 06:35 Home Medications Medication Instructions Recorded Confirmed Type cholecalciferol (vitamin D3) 50 50 mcg PO HS 10/31/21 10/04/23 History mcg (2,000 unit) capsule mecobalamin (vitamin B12) 1,000 1,000 mcg PO HS 10/31/21 10/04/23 History mcg chewable tablet nitroglycerin 0.4 mg sublingual 0.4 mg sublingual Q5M PRN chest 11/05/21 10/04/23 Rx tablet pain #15 tabs metoprolol succinate 25 mg 25 mg PO QAM #90 tabs 12/13/22 10/04/23 Rx tablet,extended release 24 hr atorvastatin 80 mg tablet 80 mg PO HS 03/21/23 10/04/23 History pantoprazole 40 mg tablet,delayed 40 mg PO QPM 03/21/23 10/04/23 History release lisinopril 5 mg tablet 5 mg PO HS #90 tabs 04/20/23 10/04/23 Rx azelastine 137 mcg (0.1 %) nasal 1 spray intranasal BID #30 mL 04/26/23 10/04/23 Rx spray aerosol albuterol sulfate 90 mcg/actuation 2 puff inhalation .[id number] PRN 05/29/23 10/04/23 Rx aerosol inhaler shortness of breath or wheezing #6.7 grams sertraline 50 mg tablet 50 mg PO QAM #90 tabs 05/29/23 10/04/23 Rx clopidogrel 75 mg tablet 75 mg PO QAM #90 tabs 08/18/23 10/04/23 Rx aspirin 81 mg capsule 81 mg PO QAM 09/12/23 10/04/23 History rivaroxaban 20 mg tablet (Xarelto) 20 mg PO HS 09/12/23 10/04/23 History empagliflozin 10 mg tablet 10 mg PO QAM #90 tabs 09/28/23 10/04/23 Rx (Jardiance) Past Med/Surg History Medical History Iliac artery aneurysm Dizziness ongoing x several months-denies change or worsening since seeing PCP, cardiology or vascular surgery Asthma pt denies; denies needing to use rescue inhalers Paroxysmal A-fib History of heart attack 2012 s/p TIM Ascending aorta dilation Marijuana use daily Shortness of breath on exertion inh prn-pt denies recent use Abdominal pain resolved currently; "lower chest and upper abdominal pain" -- cardiac workup at [place] with Dr. Boothe. Hx of diarrhea pt denies recent issues Peyronie's disease Antiplatelet or antithrombotic long-term use Diverticulitis hx-dx/treated History of colon polyps DM type 2 (diabetes mellitus, type 2) NIDDM Adjustment disorder with depressed mood Cerebral microvascular disease Hiatal hernia Hyperlipidemia Vestibular neuronitis hx CAD (coronary artery disease) s/p 3 stents, last placed 01/2022. GERD (gastroesophageal reflux disease) controlled, stable per pt Depression Hypertension controlled, stable per pt Surgical History Hx of bilateral cataract extraction History of esophagogastroduodenoscopy (EGD) H/O heart artery stent x 3. Most recent placed 01/2022, [facility] Hx of local excision of skin lesion right arm History of shoulder surgery LEFT History of colonoscopy History of herniorrhaphy UMBILCAL History of tooth extraction Strabismus REPAIR>RT/LEFT EYE History of tonsillectomy History of cardiac cath 9 YEARS AGO - CP - [facility] - 1 STENT PLACED - FOLLOWS W/ DR. BOOTHE 02/22/2022-[facility]-2 stents placed. 01/2023, [facility], no stents. Family History Family/Other Colorectal cancer Mother Colorectal cancer Diabetes Uncle Myocardial infarction Father Myocardial infarction Stroke Denies family history of Ovarian cancer Prostate cancer Breast cancer Social History Smoking Status: Never smoker Second Hand Exposure: No; Do You Dip or Chew Tobacco: No (years ago quit; advised); Tobacco Cessation Education Requested by Patient: No Hx Alcohol Use: No (no longer drinks) Hx Substance Use: Yes Prescribed Medications: Marijuana Last Used Substance: Unknown Last Used Substance Other:: daily use-advised Preferred Language: Armenian Communication Ability: Effective 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: No Beliefs That Will Affect Care: None marital status: Current Living Situation: Spouse and Family current occupational status: employed current occupation: [employer] How many Children do You have: 2 Other Information That Helps Us Care for You: No Feels Safe at Home: Yes Safety Concerns: Feels Safe At This Time Childhood Exposure to Second-Hand Smoke: Yes Dental Care, Regularly: Yes Physical Activity Frequency: 3-4 Times per Week Seatbelt Use: always Sunscreen Use: Yes Assistive Devices: Denture - Upper Assistive Devices Comment: upper partial denture Results & Data Vital Signs (Past 12 Hours) Vital Signs Temp Pulse Resp BP BP Pulse Ox O2 Del Method 10/04/23 07:20 110/85 10/04/23 07:12 70 20 89/67 L 99/66 L 10/04/23 06:53 106 H 20 81/70 L 90/66 L 10/04/23 06:35 36.6 C 117 H 20 98/82 L 90/69 L 99 Room Air
[2023-10-04] MEDS ORDERED: BUPIVACAINE/EPINEPHRINE 0.5% MPF 1:200,000 30 ML VIAL ONE (07:33)
[2023-10-04] MEDS ORDERED: THROMBIN FOR SOLN 20000 UNIT KIT ONE (07:34)
[2023-10-04] MEDS ORDERED: ceFAZolin 330 MG/ML 1 GM VIAL ONE (07:34)
[2023-10-04] MEDS ORDERED: GELATIN SPONGE SZ 100 ONE (07:34)
[2023-10-04] MEDS ORDERED: PROMETHAZINE HCL 6.25 MG in SODIUM CHLORIDE 0.9% 50 ML IV PRN (08:06)
[2023-10-04] MEDS ORDERED: ATROPINE SULFATE 0.1 MG/ML 10ML SYR IV PRN (08:06)
[2023-10-04] MEDS ORDERED: KETOROLAC 30 MG/ML VIAL IV PRN (08:06)
[2023-10-04] MEDS ORDERED: ONDANSETRON INJ 2 MG/ML 2 ML VIAL IV PRN (08:06)
[2023-10-04] MEDS ORDERED: ETOMIDATE 2 MG/ML 20 ML VIAL IV ONE (08:16)
[2023-10-04] MEDS ORDERED: ePHEDrine sulfate 50 MG/5 ML SYR ONE (08:40)
[2023-10-04] MEDS ORDERED: PHENYLEPHRINE HCL 25 MG/250 ML NSS IV ONE (08:40)
[2023-10-04] MEDS ORDERED: PHENYLEPHRINE 100MCG/ML 10ML SYR IV ONE (08:40)
[2023-10-04] MEDS ORDERED: PROTAMINE SULFATE 10 MG/ML 5 ML VIAL IV ONE (09:52)
[2023-10-04] MEDS ORDERED: NITROGLYCERIN/D5W 100 MCG/ML BTL ONE ×2 (09:57→10:18)
[2023-10-04] MEDS ORDERED: PROTAMINE SULFATE 50 MG in DEXTROSE 5% 50 ML IV ONE (10:11)
--- NOTE | 2023-10-04 10:11 | Post Operative Brief Note ---
Immediate Post Op Note v1 Date of Surgery October 04, 2023 Pre & Post Diagnosis Operation Date: 10/04/23 08:00 Pre-Op Diagnosis: Right Internal Carotid Artery Stenosis Post-Op Diagnosis: Right Internal Carotid Artery Stenosis I identified the patient and participated in the time-out.: Yes Procedure Operation Date: 10/04/23 08:00 Actual Procedures p Right Transcarotid Artery Revascularization ultrasound localization right femoral vein (Right) - Tomás Birmingham MD Surgeon Tomás Birmingham MD Loss Prevention Representative Swati Estimated Blood Loss 5 Findings Consistent with Post-Op Diagnosis Anesthesia Type General Complications none Disposition Accompanied Patient To Recovery: No Disposition: Recovery Room
[2023-10-04] MEDS ORDERED: VISIPAQUE IV ONE (10:12)
[2023-10-04] MEDS ORDERED: SUGAMMADEX SODIUM 200 MG/2 ML VIAL IV ONE (10:17)
--- NOTE | 2023-10-04 10:25 | Operative Report ---
Post Operative Report Pre & Post Diagnosis Preoperative Diagnosis: 80-90% Right internal carotid artery stenosis, asymptomatic Postoperative Diagnosis: 80-90% Right internal carotid artery stenosis, asymptomatic I identified the patient and participated in the time-out.: Yes Procedure p Right Transcarotid Artery Revascularization ultrasound localization right femoral vein (Right) - Tomás Birmingham MD Surgeon Tomás Birmingham MD Director It Mary Rios Estimated Blood Loss 15 Findings See Below Right internal carotid artery stent covering lesion on completion angiogram. Stent appeared patent and had good apposition to arterial wall with no visualized areas of flow-limiting stenosis. Fluids 1.6L crystalloid Specimens None Drains None Anesthesia Type General Complications None Disposition Accompanied Patient To Recovery: Yes Disposition: Recovery Room Indications 80-90% right internal carotid artery stenosis, asymptomatic Description of Procedure The patient was brought to the operating room, where lines were placed and general anesthesia was accomplished by anesthesia team. A shoulder roll was placed and the neck was rotated towards the left side of the patient. The right neck and bilateral groins were prepped and patient was draped in the usual sterile fashion. A timeout was performed identifying the correct patient by name, procedure, and location of procedure and all were in agreement. A 4cm transverse incision was made between the sternal and clavicular heads of the sternocleidomastoid muscle. The muscle heads were retracted to each side and the carotid sheath was identified. Using blunt dissection, the carotid sheath was opened and 3cm of common carotid artery (CCA) were isolated. Umbilical tape was placed around the proximal CCA under direct visualization. A 6-0 prolene U- stitch was pre-placed in the anterior wall of the CCA to facilitate hemostasis after removal of the arterial sheath at completion of the procedure. The patient was given 8,000 units of IV heparin for goal ACT>250. We attempted contralateral common femoral vein access under ultrasound guidance but were unable to get venous return. The ipsilateral (right) common femoral vein was accessed under ultrasound guidance, using a micropuncture needle and a wire and sheath were placed using modified Seldinger technique. The venous return sheath was advanced into the common femoral vein over the 0.035" wire. Blood was aspirated from the flow line and the sheath was flushed with heparinized saline.The sheath was secured to the patient's skin with a 2-0 silk stitch to maintain position in the vessel. ACT was confirmed to be above 250 seconds prior to carotid access. A 4-Greenlandic non-stiffened micropuncture set was used, puncturing the artery with a 21G needle through the pre-placed U-stitch while holding gentle traction on the umbilical tape to stabilize the CCA within the incision. The micropuncture wire was advanced 3-4cm into the CCA and the 21G needle removed. The micropuncture sheath was advanced about 2.5cm into the CCA and the wire and dilator were removed. A cerebral angiogram was obtained after ensuring there were no air bubbles in the system. The J-tipped guidewire was inserted just proximal to the bifurcation without engaging the lesion. After micropuncture sheath removal, the transcarotid arterial sheath was advanced to the 3.5cm marker and the 0.035" wire and dilator were removed. Arterial sheath position was assessed under fluoroscopy. The arterial sheath was sutured to the patient at two sites. Blood was easily aspirated and we gently flushed the sheath with heparinized saline. The Flow Controller was connected to the transcarotid arterial sheath, prepared by passively allowing arterial blood to backfill the line and then it was connected to the venous return sheath. The CCA was clamped proximally with a Denise tourniquet to ensure active flow reversal. Heparinized saline was delivered into the venous flow line to confirm adequate flow reversal. A cerebral angiogram was performed. A TCAR timeout was performed, heart rate was >70bpm and systolic BP was treated to achieve goal >140mmHg. The patient was pre-treated with glycopyrrolate and atropine was available in case needed. The l esion was crossed with an 0.014" guidewire using a Kumpe catheter to guide the wire towards the ICA. Pre-dilation balloon angioplasty was performed with a 5x25mm [employer] rapid exchange balloon to 8 atmospheres for about 5 seconds. A 9x30mm ENROUTE transcarotid stent was placed, sized to the right CCA. A completion angiogram was performed showing appropriate stent position with good wall apposition. Post-dilation balloon angioplasty was not indicated. At TCAR case completion, antegrade flow was restored by releasing the tourniquet on the CCA and closing the stopcocks to the flow lines. The total clamp time was 13 minutes. The transcarotid arterial sheath was removed and the pre-placed suture was tied. 25mg of protamine were given. A repeat ACT was obtained and was 147. The venous return sheath was removed and hemostasis achieved with manual compression. The neck incision was irrigated with antibiotic solution and was hemostatic before closure. 6cc of 0.25% marcaine with epinephrine were used for local anesthesia around skin edges. The platysma was approximated with 3-0 Vicryl running suture and the skin was closed with 4-0 running Monocryl suture and covered with Dermabond. The patient tolerated the procedure well and was extubated in the operating room. He was moving all four extremities to command prior to transfer to the recovery room. All counts were correct at the end of the procedure. Fluoroscopy time was 3.8 minutes, radiation dose was 36 mGy and 12cc of contrast were used. Dr. Birmingham was present and participated in all critical parts of the procedure. I attest to the content of the Intraoperative Record and any orders documented therein. Any exceptions are noted below.
[2023-10-04] MEDS: fentaNYL citrate PF 100 MCG/2 ML VIAL IV PRN ×4 (11:00→11:25)
--- NOTE | 2023-10-04 11:59 | Anesthesiology Progress Note ---
Date of Service October 04, 2023 Anesthesia Post Procedure Vital Signs Vital Signs: Temp Pulse Resp BP BP Pulse Ox O2 Del Method 10/04/23 11:50 91 H 20 120/79 94 Nasal Cannula 10/04/23 11:40 36.1 C L 88 15 105/57 L 95 Nasal Cannula 10/04/23 11:30 77 13 108/58 L 95 Nasal Cannula 10/04/23 11:20 71 14 119/56 L 98 Nasal Cannula 10/04/23 11:10 88 15 113/56 L 95 Nasal Cannula 10/04/23 11:00 85 14 116/59 L 96 Nasal Cannula 10/04/23 10:50 86 23 126/64 127/83 95 Oxymask 10/04/23 10:42 36.6 C 95 H 20 118/59 L 122/81 100 Oxymask 10/04/23 07:34 70 139/94 10/04/23 07:20 110/85 10/04/23 07:12 70 20 89/67 L 99/66 L 10/04/23 06:53 106 H 20 81/70 L 90/66 L 10/04/23 06:35 36.6 C 117 H 20 98/82 L 90/69 L 99 Room Air O2 Flow Rate 10/04/23 11:50 2 10/04/23 11:40 2 10/04/23 11:30 2 10/04/23 11:20 2 10/04/23 11:10 2 10/04/23 11:00 2 10/04/23 10:50 3 10/04/23 10:42 6 10/04/23 07:34 10/04/23 07:20 10/04/23 07:12 10/04/23 06:53 10/04/23 06:35 Pain Intensity Right Neck: Pain Intensity: 4 Transfer of Care Handoff Completed per policy Notes Mental Status: alert / awake / arousable Patient Amnestic to Procedure: Yes Nausea / Vomiting: adequately controlled Pain: adequately controlled Airway Patency, RR, SpO2: stable & adequate BP & HR: stable & adequate Hydration State: stable & adequate Anesthetic Complications: no major complications apparent
--- NOTE | 2023-10-04 12:20 | Anesthesia Procedure Note ---
Anesthesia Procedure Note Arterial Line Note Date of procedure: 10/04/23 Consent: Risk / Benefits Reviewed With: PT / POA / Parent / Guardian and Accepts Plan Monitors attached: Blood Pressure, CO2, EKG and Pulse Oximetry Oxygen delivery method: ETT Premedication: General anesthesia Laterality: Left Location: Radial Equipment/Supplies: Sterile gloves and Sterile procedures used Skin prep: Chloraprep Attempts: 1 Procedure Summary: good wave, no hematoma Post-Procedure: No complication
[2023-10-04] MEDS ORDERED: LACTATED RINGER'S 1,000 ML IV SCH (12:34)
[2023-10-04] MEDS ORDERED: oxyCODONE/ACETAMINOPHEN 5mg/325mg TAB PO PRN (12:34)
[2023-10-04] MEDS ORDERED: NITROGLYCERIN SL 0.4 MG/TAB TAB SL PRN (12:34)
[2023-10-04] MEDS ORDERED: ALBUTEROL HFA 8 GM INHALER INH PRN (12:34)
--- NOTE | 2023-10-04 15:32 | Critical Care Consultation ---
Date of Consultation October 04, 2023 Assessment & Plan (1) Stenosis of right carotid artery: Status post right TCAR currently in the ICU for monitoring. General medical management deferred to the vascular surgical team unless critical care needs arise. Airway, breathing and circulation appear unremark able at this time. ICU will continue to monitor the patient until he is downgraded or discharged. Thank you for the consult. History of Present Illness Reason for Consultation: Right TCAR Attending Physician: Tomás Birmingham MD History of Present Illness Blood and urine cultures 73-year-old male with a past medical history of coronary artery disease, GERD, abdominal pain, thyroid nodules, diabetic mellitus type II and right carotid artery stenosis presenting to the ICU status post right TCAR. Patient denies any complaints including shortness of breath, chest pain, dysphagia, fevers, chills or night sweats. No numbness or tingling. He does endorse a dry mouth. Allergies Allergy/AdvReac Type Severity Reaction Status Date / Time metformin AdvReac Diarrhea Verified 10/04/23 06:35 Home Medications Medication Instructions Recorded Confirmed Type cholecalciferol (vitamin D3) 50 50 mcg PO HS 10/31/21 10/04/23 History mcg (2,000 unit) capsule mecobalamin (vitamin B12) 1,000 1,000 mcg PO HS 10/31/21 10/04/23 History mcg chewable tablet nitroglycerin 0.4 mg sublingual 0.4 mg sublingual Q5M PRN chest 11/05/21 10/04/23 Rx tablet pain #15 tabs metoprolol succinate 25 mg 25 mg PO QAM #90 tabs 12/13/22 10/04/23 Rx tablet,extended release 24 hr atorvastatin 80 mg tablet 80 mg PO HS 03/21/23 10/04/23 History pantoprazole 40 mg tablet,delayed 40 mg PO QPM 03/21/23 10/04/23 History release lisinopril 5 mg tablet 5 mg PO HS #90 tabs 04/20/23 10/04/23 Rx azelastine 137 mcg (0.1 %) nasal 1 spray intranasal BID #30 mL 04/26/23 10/04/23 Rx spray aerosol albuterol sulfate 90 mcg/actuation 2 puff inhalation .[id number] PRN 05/29/23 10/04/23 Rx aerosol inhaler shortness of breath or wheezing #6.7 grams sertraline 50 mg tablet 50 mg PO QAM #90 tabs 05/29/23 10/04/23 Rx clopidogrel 75 mg tablet 75 mg PO QAM #90 tabs 08/18/23 10/04/23 Rx aspirin 81 mg capsule 81 mg PO QAM 09/12/23 10/04/23 History rivaroxaban 20 mg tablet (Xarelto) 20 mg PO HS 09/12/23 10/04/23 History empagliflozin 10 mg tablet 10 mg PO QAM #90 tabs 09/28/23 10/04/23 Rx (Jardiance) Patient History Medical History Iliac artery aneurysm Dizziness ongoing x several months-denies change or worsening since seeing PCP, cardiology or vascular surgery Asthma pt denies; denies needing to use rescue inhalers Paroxysmal A-fib History of heart attack 2012 s/p TIM Ascending aorta dilation Marijuana use daily Shortness of breath on exertion inh prn-pt denies recent use Abdominal pain resolved currently; "lower chest and upper abdominal pain" -- cardiac workup at [place] with Dr. Boothe. Hx of diarrhea pt denies recent issues Peyronie's disease Antiplatelet or antithrombotic long-term use Diverticulitis hx-dx/treated History of colon polyps DM type 2 (diabetes mellitus, type 2) NIDDM Adjustment disorder with depressed mood Cerebral microvascular disease Hiatal hernia Hyperlipidemia Vestibular neuronitis hx CAD (coronary artery disease) s/p 3 stents, last placed 01/2022. GERD (gastroesophageal reflux disease) controlled, stable per pt Depression Hypertension controlled, stable per pt Surgical History Hx of bilateral cataract extraction History of esophagogastroduodenoscopy (EGD) H/O heart artery stent x 3. Most recent placed 01/2022, [facility] Hx of local excision of skin lesion right arm History of shoulder surgery LEFT History of colonoscopy History of herniorrhaphy UMBILCAL History of tooth extraction Strabismus REPAIR>RT/LEFT EYE History of tonsillectomy History of cardiac cath 9 YEARS AGO - CP - [facility] - 1 STENT PLACED - FOLLOWS W/ DR. BOOTHE 02/22/2022-[facility]-2 stents placed. 01/2023, [facility], no stents. Family History Family/Other Colorectal cancer Mother Colorectal cancer Diabetes Uncle Myocardial infarction Father Myocardial infarction Stroke Denies family history of Ovarian cancer Prostate cancer Breast cancer Social History Smoking Status: Never smoker Second Hand Exposure: No; Do You Dip or Chew Tobacco: No (years ago quit; advised); Tobacco Cessation Education Requested by Patient: No Hx Alcohol Use: No (no longer drinks) Hx Substance Use: Yes Prescribed Medications: Marijuana Last Used Substance: Unknown Last Used Substance Other:: daily use-advised Preferred Language: Romanian Communication Ability: Effective 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 Beliefs That Will Affect Care: None marital status: Current Living Situation: Spouse and Family current occupational status: employed current occupation: [employer] How many Children do You have: 2 Other Information That Helps Us Care for You: No Feels Safe at Home: Yes Safety Concerns: Feels Safe At This Time Childhood Exposure to Second-Hand Smoke: Yes Dental Care, Regularly: Yes Physical Activity Frequency: 3-4 Times per Week Seatbelt Use: always Sunscreen Use: Yes Assistive Devices: Denture - Upper Assistive Devices Comment: upper partial denture Review of Systems Review of Systems: All systems reviewed & are unremarkable except as noted in HPI & below Physical Exam Physical Exam: Constitutional: Patient appears to be of their stated age. Patient is in no apparent distress. Patient is well-developed. Eyes: Pupils are equal round and reactive to light. Conjunctivae are normal. Anicteric sclera. Ears nose, mouth and throat: Mallampati class 2. Normal posterior oropharynx. Uvula is midline. Neck: Trachea is midline. Visual inspection is normal. Respiratory: Clear to auscultation bilaterally. No use of accessory muscles. No significant clubbing noted. Cardiovascular: Regular rate and rhythm. No murmurs. No edema. Gastrointestinal: Normal bowel sounds, soft, nontender and nondistended. No hepatosplenomegaly noted. Musculoskeletal: No cyanosis. Patient is able to move all extremities. Strength is 5 out of 5 in the upper and lower extremities. Skin: No rashes, warm dry and intact. Neurologic: No obvious focal neurological deficits seen. Psychiatric: Alert and oriented x3 with a euthymic affect. Results & Data Results & Data Vital Signs (Past 12 Hours) Vital Signs Temp Pulse Pulse Resp BP BP BP 10/04/23 14:00 76 22 10/04/23 14:00 119/79 10/04/23 13:30 78 19 10/04/23 13:15 85 16 10/04/23 13:00 117/79 10/04/23 13:00 70 14 10/04/23 12:45 71 21 10/04/23 12:32 36.8 C 73 28 H 10/04/23 11:50 91 H 20 120/79 10/04/23 11:40 36.1 C L 88 15 105/57 L 10/04/23 11:30 77 13 108/58 L 10/04/23 11:20 71 14 119/56 L 10/04/23 11:10 88 15 113/56 L 10/04/23 11:00 85 14 116/59 L 10/04/23 10:50 86 23 126/64 127/83 10/04/23 10:42 36.6 C 95 H 20 118/59 L 122/81 10/04/23 07:34 70 139/94 10/04/23 07:20 110/85 10/04/23 07:12 70 20 89/67 L 99/66 L 10/04/23 06:53 106 H 20 81/70 L 90/66 L 10/04/23 06:35 36.6 C 117 H 20 98/82 L 90/69 L Pulse Ox O2 Del Method O2 Flow Rate 10/04/23 14:00 94 10/04/23 14:00 10/04/23 13:30 92 10/04/23 13:15 93 Room Air 10/04/23 13:00 10/04/23 13:00 97 10/04/23 12:45 100 10/04/23 12:32 100 10/04/23 11:50 94 Nasal Cannula 2 10/04/23 11:40 95 Nasal Cannula 2 10/04/23 11:30 95 Nasal Cannula 2 10/04/23 11:20 98 Nasal Cannula 2 10/04/23 11:10 95 Nasal Cannula 2 10/04/23 11:00 96 Nasal Cannula 2 10/04/23 10:50 95 Oxymask 3 10/04/23 10:42 100 Oxymask 6 10/04/23 07:34 10/04/23 07:20 10/04/23 07:12 10/04/23 06:53 10/04/23 06:35 99 Room Air Coding Level of Care Code 73196 IN/OBS CONSULT LVL 2,35M Diagnoses Stenosis of right carotid artery I65.21
--- NOTE | 2023-10-04 15:56 | Electrocardiogram Report ---
Test Reason : Blood Pressure : / mmHG Vent. Rate : 086 BPM Atrial Rate : 086 BPM P-R Int : 192 ms QRS Dur : 090 ms QT Int : 398 ms P-R-T Axes : 054 095 042 degrees QTc Int : 476 ms Normal sinus rhythm Rightward axis Borderline ECG When compared with ECG of 14-APR-2023 12:17, No significant change was found Confirmed by Anand Chester ([id number]) on 10/04/2023 3:56:14 PM Referred By: Tomás Birmingham Confirmed By:Anand Chester
[2023-10-04] MEDS: ceFAZolin 2000MG 2,000 MG/15 ML SYR IV SCH (16:38)
[2023-10-04] MEDS ORDERED: RIVAROXABAN 20 MG TAB PO SCH ×2 (17:00→21:00)
[2023-10-04] MEDS: AZELASTINE HCL 0.1% NASAL 200 SPRAYS/27,400 MCG BTL SCH (20:38)
[2023-10-04] MEDS ORDERED: ATORVASTATIN 40 MG TAB PO SCH (21:00)
[2023-10-04] MEDS ORDERED: lisinopril 5 MG TAB PO SCH (21:00)
[2023-10-04] MEDS ORDERED: CYANOCOBALAMIN (B-12) 500 MCG TABLET PO SCH (21:00)
[2023-10-04] MEDS ORDERED: CHOLECALCIFEROL 1,000 UNITS 25 MCG TAB PO SCH (21:00)
[2023-10-04] MEDS ORDERED: PANTOprazole 40 MG TAB PO SCH (21:00)
[2023-10-05] MEDS: ceFAZolin 2000MG 2,000 MG/15 ML SYR IV SCH (00:52)
[2023-10-05 04:23] LABS: Creatinine Clr Calc Pharmacy 60.7 ml/min; Est GFR (African American) 70.1 ml/min; Est GFR (Non-African American) 60.5 ml/min
[2023-10-05] MEDS: AZELASTINE HCL 0.1% NASAL 200 SPRAYS/27,400 MCG BTL SCH (07:36)
[2023-10-05] MEDS ORDERED: SERTRALINE HCL 50 MG TABLET PO SCH (09:00)
[2023-10-05] MEDS ORDERED: CLOPIDOGREL BISULFATE 75 MG TAB PO SCH (09:00)
[2023-10-05] MEDS ORDERED: EMPAGLIFLOZIN 10 MG TAB PO SCH (09:00)
[2023-10-05] MEDS ORDERED: ASPIRIN 81 MG ECTAB PO SCH (09:00)
[2023-10-05] MEDS ORDERED: METOPROLOL SUCC 25MG EXT REL TAB PO SCH (09:00)
--- NOTE | 2023-10-05 10:58 | Critical Care Progress Note ---
Date of Service October 05, 2023 Assessment & Plan (1) Stenosis of right carotid artery: Plan Reason Critically Ill: Patient is a 73-year-old male with significant past medical history of hyperlipidemia, type 2 diabetes, GERD, coronary artery disease status post PTCA x 1, and paroxysmal atrial flutter who presents to the ICU status post RIGHT-sided TCAR. NEURO - * CAM ICU: NEGATIVE * Patient with no focal neurological deficits status post TCAR procedure. CARDIAC/VASCULAR - * Has maintained hemodynamic stability throughout the night. * Discontinue arterial line this morning. * Monitor on telemetry. RESPIRATORY - * Saturating well on room air. GI/NUTRITION - * Progress diet as tolerated. RENAL/LYTES - * No significant electrolyte derangements. - * No concerns at this time. ENDO - * DMII * BSGs per unit protocol. ISS --> gtt per unit policy. HEME - * Stable H&H ID - * No concerns for infection. LINES/IV ACCESS - * PIVs x1 * LEFT Radial arterial line. DVT PROPHYLAXIS - * Per vascular surgery. * SCDs Thank you for allowing us to participate in the care of this patient. Please refer to my attending physician's documentation for any further recommendations. Admission and Anticipated Discharge Date Admission Date: October 04, 2023 Subjective Patient was seen and evaluated at bedside. He had a restless night sleep. Overall, he complains of mild sore throat from intubation. Otherwise, he offers no complaints of pain. He has no chest pain, palpitations, headaches, or numbness/weakness to the extremities. He is uncertain if he is experiencing recurrent dizziness which prompted initial surgical intervention. Review of Systems Review of Systems: A complete 10 point review of systems was reviewed with the patient with pertinent positives and negatives as per history of present illness. All else were negative. Physical Exam Physical Exam: VITAL SIGNS - Vital signs and nursing notes were reviewed. GENERAL - 73-year-old male appearing his stated age who is in no acute distress. Communicates well with provider and answers questions appropriately. SKIN - RIGHT-sided chest surgical incision site clean, dry, intact, and without erythema, edema, or ecchymosis. NECK - RIGHT-sided post-op incision site clean, dry, and intact. Neck with FROM. Supple to palpation. LUNGS - Chest wall symmetric without accessory muscle use, intercostals retractions, or central cyanosis. Normal vesicular breath sounds CTA B/L. No wheezes, rales, or rhonchi appreciated. CARDIAC - RRR with S1/S2. No murmur, rubs, or gallops appreciated. ABDOMEN - RIGHT bilateral groin dressings clean, dry, and intact. Abdominal contour flat without pulsations or visible masses. BS normoactive all four quadrants. No tenderness, palpable masses, hepatosplenomegaly, or ascites noted. EXTREMITIES - No clubbing or peripheral cyanosis. No pretibial edema present. +3/5 radial and dorsalis pedis pulses palpated throughout. +5/5 strength noted in UE/LE bilaterally. NEUROLOGIC - Cranial nerves II through XII grossly intact. PSYCH - A&Ox3 and cooperates fully with examiner. Pt is very pleasant and interacts well with examiner. Results & Data Results & Data Vital Signs (Past 12 Hours) Vital Signs Temp Pulse Resp BP Pulse Ox 10/05/23 10:00 67 19 97 10/05/23 10:00 97/58 L 10/05/23 09:00 97/64 L 10/05/23 09:00 80 20 96 10/05/23 08:00 74 19 97 10/05/23 08:00 108/56 L 10/05/23 07:58 60 10/05/23 07:39 75 20 96 10/05/23 07:39 112/62 10/05/23 07:00 57 L 14 97 10/05/23 07:00 95/57 L 10/05/23 06:45 62 14 95 10/05/23 06:00 60 18 94 10/05/23 05:00 58 L 14 94 10/05/23 04:43 63 11 L 97 10/05/23 04:43 116/60 10/05/23 04:24 99/52 L 10/05/23 04:24 59 L 18 95 10/05/23 04:01 72 19 97 10/05/23 04:00 71 16 100 10/05/23 03:53 62 23 95 10/05/23 03:53 114/62 10/05/23 03:00 62 20 93 10/05/23 02:00 67 18 93 10/05/23 01:00 113/69 10/05/23 01:00 65 12 95 10/05/23 00:22 37.0 C 10/05/23 00:00 111/81 10/05/23 00:00 71 14 96 10/04/23 23:30 117/72 10/04/23 23:30 82 27 H 93 10/04/23 23:11 70 10/04/23 23:00 107/64 10/04/23 23:00 69 19 95 Coding Level of Care Code 29338 SUB INP/OBS CARE 2/35MIN Diagnoses Stenosis of right carotid artery I65.21
== END 2023-10-05 16:05 | disposition home or self-care (01) | DRG 36 ==
LOC: ASU 06:17 → 1E 07:30
PROC: EV.TCAR (2023-10-04 08:00)